=== PATIENT | female | born 1945 | race Caucasian/White ===

== ENCOUNTER 2016-11-25 11:50 | Emergency (ER) | payer MEDICARE, MEDICAID ==
--- NOTE | 2016-11-25 11:59 | ED Physician Documentation ---
PD HPI URI - Stated complaint Stated Complaint: SOA, COUGH, SIDE PX - Chief complaint Chief Complaint: Resp - History obtained from History obtained from: Patient - History of Present Illness Timing - onset: How many days ago (4-5) Timing duration: Days (4-5) Timing details: Gradual onset, Still present (had cough and dyspnea for few days and now worse with greenish sputum, more dyspnea, and feeling general malaise.) Associated symptoms: Chills, Nasal congestion, Productive cough, Dyspnea, Bilateral edema (chronic). No: Fever, Sore throat, Hemoptysis, Chest pain, NVD , Unilateral edema Contributing factors: Travel (couple of months ago, moved from [facility] to [facility] to live with her daughter; she had lived [place] elevation about 7000 [place] and was having regular dyspnea and had home oxygen. She is doing better since moving here, but now with cough/wheezing.), COPD / asthma. No: Sick contact, Immunocompromised Improves by: Rest Worsened by: Activity Similar symptoms before: Diagnosis (COPD exacs and bronchitis/pneumonia episodes in the past.) Recently seen: Not recently seen Review of Systems Constitutional: reports: Chills, Myalgias, Fatigue. denies: Fever Nose: reports: Congestion. denies: Rhinorrhea / runny nose Throat: denies: Sore throat Cardiac: reports: Pedal edema (ongoing). denies: Chest pain / pressure, Palpitations, Calf pain Respiratory: reports: Dyspnea, Cough, Wheezing GI: denies: Nausea, Vomiting, Diarrhea, Bloody / black stool Skin: denies: Rash, Lesions Musculoskeletal: reports: Back pain (ongoing, and had been Rx Meloxicam. Denies being on chronic pain meds nor pain clinic. Has had back injections in the past. Prior history of compression fractures.). denies: Neck pain Neurologic: reports: Generalized weakness. denies: Focal weakness, Numbness, Near syncope, Altered mental status, Headache Endocrine: denies: Weight loss Immunocompromised: denies: Immunocompromised PD PAST MEDICAL HISTORY - Past Medical History Cardiovascular: Congestive heart failure, Hypertension Respiratory: COPD Neuro: None Endocrine/Autoimmune: None - Present Medications Home Medications: Ambulatory Orders Medication Instructions Recorded Confirmed Albuterol Sulfate [Proair Hfa 1 - 2 puffs QID PRN 11/25/16 11/25/16 Inhaler] Azithromycin [Zithromax] 250 mg PO DAILY #4 tablet 11/25/16 Dexamethasone [Decadron] 4 mg PO DAILY #5 tablet 11/25/16 Hydrocodone/Acetaminophen [Vicodin 1 - 2 tab QID PRN 11/25/16 11/25/16 5-300 mg Tablet] Meloxicam 1 tab DAILY 11/25/16 11/25/16 Naproxen [Naprosyn] 500 mg PO BID #20 tablet 11/25/16 Omeprazole 1 tab DAILY 11/25/16 11/25/16 - Allergies Allergies/Adverse Reactions: Allergies Allergy/AdvReac Type Severity Reaction Status Date / Time No Known Drug Allergies Allergy Verified 11/25/16 11:58 - Living Situation Living Situation: reports: With family Living Arrangement: reports: At home (recently moved to [facility] in past 2-3 weeks. ) - Social History Does the pt smoke?: Yes Does the pt drink ETOH?: No Does the pt have substance abuse?: No - Family History Family history: reports: Non contributory PD ED PE NORMAL - Vitals Vital signs reviewed: Yes - General General: Alert and oriented X 3, Well developed/nourished - HEENT HEENT: Atraumatic, Ears normal, Moist mucous membranes, Pharynx benign - Neck Neck: Supple, no meningeal sign, No adenopathy - Cardiac Cardiac: RRR (mild tachycardic), No murmur - Respiratory Respiratory: No: Clear bilaterally (diffuse wheezes moderate, without accessory muscle use. Able to talk in sentences. ) - Abdomen Abdomen: Soft, Non tender - Female Female : Deferred - Rectal Rectal: Deferred - Back Back: No CVA TTP - Derm Derm: Normal color, Warm and dry - Extremities Extremities: No tenderness to palpate, Normal ROM s pain, No calf tenderness / cord, Other (1+ edema in both legs, which she says is usual. ) - Neuro Neuro: Alert and oriented X 3, No motor deficit, Normal speech Results - Vitals Vitals: Vital Signs - 24 hr 11/25/16 11/25/16 11/25/16 11:57 12:45 13:01 Temperature 37.2 C Heart Rate 109 H 112 H 100 Respiratory 20 17 20 Rate Blood Pressure 159/86 H 139/81 H O2 Saturation 95 94 11/25/16 11/25/16 11/25/16 13:42 14:36 14:46 Temperature 37.1 C Heart Rate 99 97 95 Respiratory 18 20 23 Rate Blood Pressure 109/62 96/55 L 93/55 L O2 Saturation 92 91 L 96 Oxygen O2 Source Room air - Labs Labs: Laboratory Tests 11/25/16 11/25/16 11/25/16 12:45 12:45 12:45 WBC 14.1 H RBC 5.55 H Hgb 16.2 H Hct 48.2 H MCV 86.9 MCH 29.1 MCHC 33.5 RDW 13.5 Plt Count 281 MPV 9.1 Neut # 10.8 H Lymph # 2.1 [place] # 1.0 Eos # 0.1 Baso # 0.1 Absolute Nucleated RBC 0.00 Nucleated RBCs 0.0 Sodium 136 Potassium 4.7 Chloride 100 L Carbon Dioxide 28 Anion Gap 8.0 BUN 20 Creatinine 0.7 Estimated GFR (MDRD) 82 L Glucose 106 H Calcium 10.2 Magnesium 1.8 Total Bilirubin 1.3 H AST 21 ALT 18 Alkaline Phosphatase 112 B-Natriuretic Peptide 184 H Total Protein 7.8 Albumin 4.2 Globulin 3.6 Albumin/Globulin Ratio 1.2 Lipase 22 - Rads (name of study) chest Radiology: Prelim report reviewed, EMP read contemporaneously (no infiltrates; hyperinflated c/w COPD. ) lumbar Radiology: Prelim report reviewed (chronic changes with L1 compression fx (old) . ) PD MEDICAL DECISION MAKING - ED course Complexity details: reviewed results, re-evaluated patient (feeling better with neb and some oral meds. ), considered differential (recently moved from [facility] at [facility], and is having COPD/bronchitis symptoms here. Has ongoing back pain for which she prefers not to take narcotics. She does not look ill and vitals are good. Given COPD history, will treat bronchitis symptoms with abx as well as steroids/inhalers. ), d/w patient Departure - Departure Disposition: 01 Home, Self Care Clinical Impression: Acute exacerbation of COPD with asthma, Bronchitis Low back pain Qualifiers: Chronicity: acute Back pain laterality: bilateral Sciatica presence: without sciatica Qualified Code(s): M54.5 - Low back pain Condition: Stable Record reviewed to determine appropriate education?: Yes Instructions: ED Bronchitis Asthmatic, ED Low Back Pain Injury, ED COPD Flare Prescriptions: Dexamethasone [Decadron] 4 mg PO DAILY #5 tablet Naproxen [Naprosyn] 500 mg PO BID #20 tablet Azithromycin [Zithromax] 250 mg PO DAILY #4 tablet Comments: Use your Albuterol inhaler 2 puffs 4 times daily and extra times as needed. Decadron steroid daily as directed. Once done with that, then resume daily use of your Advair. Zithromax daily as directed antibiotic for the bronchitis. Naproxen twice daily for back/hips pain and add Tylenol 650 mg 4 times daily as needed for pains. Follow up with new PMD as planned (in December); return to ED if not improved over the next few days. Discharge Date/Time: 11/25/16 14:53
[2016-11-25] MEDS ORDERED: IPRATROPIUM/ALBUTEROL 3 ML NEB INH STA (12:23)
[2016-11-25] MEDS ORDERED: DEXAMETHASONE 10 MG/ML VIAL IVP STA (12:26)
[2016-11-25] MEDS ORDERED: AZITHROMYCIN 250 MG TABLET PO STA (12:26)
[2016-11-25] MEDS ORDERED: KETOROLAC 60 MG/2 ML VIAL IVP STA (12:26)
[2016-11-25] MEDS ORDERED: IPRATROPIUM/ALBUTEROL 3 ML NEB INH ONE (12:35)
[2016-11-25] MEDS ORDERED: KETOROLAC 30 MG/ML VIAL ONE (12:57)
[2016-11-25] MEDS ORDERED: AZITHROMYCIN 250 MG TABLET PO ONE (12:57)
[2016-11-25] MEDS ORDERED: DEXAMETHASONE 10 MG/ML VIAL ONE (12:57)
[2016-11-25 13:05] LABS: BASOPHILS # (AUTO) 0.1 10^3/uL (0.0-0.1); BASOPHILS % (AUTO) 0.6 %; EOSINOPHILS # (AUTO) 0.1 10^3/uL (0.0-0.7); HCT - HEMATOCRIT 48.2 % (37.0-47.0); HGB - HEMOGLOBIN 16.2 g/dL (12.0-16.0); LYMPHOCYTES # (AUTO) 2.1 10^3/uL (1.5-3.5); LYMPHOCYTES % (AUTO) 14.7 %; MEAN CORPUSCULAR HEMOGLOBIN 29.1 pg (27.0-31.0); MEAN CORPUSCULAR HGB CONC 33.5 g/dL (32.0-36.0); MEAN CORPUSCULAR VOLUME 86.9 fL (81.0-99.0); MEAN PLATELET VOLUME 9.1 fL (7.9-10.8); MONOCYTES % (AUTO) 7.4 %; NEUTROPHILS # (AUTO) 10.8 10^3/uL (1.5-6.6); NEUTROPHILS % (AUTO) 76.3 %; RED BLOOD COUNT 5.55 10^6/uL (4.20-5.40); RED CELL DISTRIBUTION WIDTH 13.5 % (12.0-15.0); UNCORRECTED WHITE BLOOD COUNT 14.1 x10^3/uL; WHITE BLOOD COUNT 14.1 x10^3/uL (4.8-10.8)
--- NOTE | 2016-11-25 13:11 | XRAY Preliminary Report ---
Exam: XR Chest 2 View PA/LAT IMPRESSION: 1. Relatively symmetric, coarse bibasilar interstitial opacities. Findings are concerning for chronic lung disease and basilar fibrosis. Suggest comparison with any outside prior studies. [facility] SITE ID: [id number]
--- NOTE | 2016-11-25 13:14 | XRAY Report ---
EXAM: CHEST RADIOGRAPHY EXAM DATE: 11/25/2016 12:52 PM. CLINICAL HISTORY: Cough and dyspnea. COMPARISON: None. TECHNIQUE: 2 views. FINDINGS: Lungs/Pleura: Bibasilar opacities are probably from atelectasis and potential scarring. Upper lobe bullous changes are possible. No pneumothorax. Mediastinum: Atherosclerotic aortic calcifications. Other: Scoliosis. Thoracolumbar kyphosis with potential prior compression deformities. IMPRESSION: 1. Relatively symmetric, coarse bibasilar interstitial opacities. Findings are concerning for chronic lung disease and basilar fibrosis. Suggest comparison with any outside prior studies. [facility] Referring Provider Line: [phone] SITE ID: [id number]
--- NOTE | 2016-11-25 13:18 | XRAY Preliminary Report ---
Exam: XR Lumbar Spine 2 View IMPRESSION: 1. Diffuse osteopenia. 2. Mild L1 compression deformity could be chronic. Anterior osteophytes at T12-L1 and L1-L2 level elvin ear relatively smooth. 3. At least moderate multilevel degenerative changes. If there is clinical indication to further assess, consider CT. [facility] SITE ID: [id number]
[2016-11-25 13:20] LABS: ALBUMIN/GLOBULIN RATIO 1.2 (1.0-2.2); BILIRUBIN,TOTAL 1.3 mg/dL (0.2-1.0); CALCIUM 10.2 mg/dL (8.5-10.3); CREATININE 0.7 mg/dL (0.4-1.0); MAGNESIUM 1.8 mg/dL (1.7-2.8); POTASSIUM 4.7 mmol/L (3.5-5.0); TOTAL PROTEIN 7.8 g/dL (6.7-8.2)
--- NOTE | 2016-11-25 13:20 | XRAY Report ---
EXAM: LUMBOSACRAL SPINE RADIOGRAPHY EXAM DATE: 11/25/2016 12:55 PM. CLINICAL HISTORY: Low back pain radiating to hips. . COMPARISONS: None. TECHNIQUE: 3 views. FINDINGS: Alignment: Thoracolumbar kyphosis. 4 mm grade 1 retrolisthesis of L2 on L1 vertebral body. 2 mm grade 1 retrolisthesis of L3 on L4 vertebral body also suspected. 24 degree convex left lumbar scoliosis. Bones: Diffuse osteopenia. Mild anterior wedging of L1 vertebral body. Disks: At least moderate loss of disk space height throughout the lumbar spine. Facets: Lower lumbar facet hypertrophy, particularly at L5-S1 level. Sacroiliac Joints: Unremarkable. Soft Tissues: Atherosclerotic abdominal aortic calcifications. Probable tortuous abdominal aorta. IMPRESSION: 1. Diffuse osteopenia. 2. Mild L1 compression deformity could be chronic. Anterior osteophytes at T12-L1 and L1-L2 level elvin ear relatively smooth. 3. At least moderate multilevel degenerative changes. If there is clinical indication to further assess, consider CT. [facility] Referring Provider Line: [phone] SITE ID: [id number]
[2016-11-25 14:47] VITALS: BP 93/55
== END 2016-11-25 14:53 | disposition home or self-care (01) ==
LOC: ED 11:50
DX: J44.1 Chronic obstructive pulmonary disease with (acute) exacerbation (principal); M54.5 Low back pain; I10 Essential (primary) hypertension; Z72.0 Tobacco use
CPT/HCPCS: 36415; 71020; 72100; 80053; 83690; 83735; 83880; 85025; 93005; 94640; 96374; 96375; 99284; A9270; J7620

== ENCOUNTER 2016-12-15 13:17 | Emergency (ER) | payer MEDICAID, MEDICARE ==
[2016-12-15] MEDS ORDERED: DOXYCYCLINE 100 MG TABLET PO STA (13:48)
[2016-12-15] MEDS ORDERED: guaiFENesin/CODEINE 5 ML UDC PO STA (13:48)
[2016-12-15] MEDS ORDERED: IPRATROPIUM/ALBUTEROL 3 ML NEB INH STA (13:48)
[2016-12-15] MEDS ORDERED: DEXAMETHASONE 10 MG/ML VIAL PO STA (13:48)
[2016-12-15] MEDS ORDERED: NAPROXEN 250 MG TABLET PO STA (13:49)
[2016-12-15] MEDS ORDERED: guaiFENesin/CODEINE 5 ML UDC ONE (13:54)
[2016-12-15] MEDS ORDERED: CHERRY SYRUP 10 ML UDC PO ONE (13:54)
[2016-12-15] MEDS ORDERED: DOXYCYCLINE 100 MG TABLET PO ONE (13:54)
[2016-12-15] MEDS ORDERED: DEXAMETHASONE 10 MG/ML VIAL ONE (13:54)
[2016-12-15] MEDS ORDERED: NAPROXEN 250 MG TABLET PO ONE (13:54)
[2016-12-15] MEDS ORDERED: IPRATROPIUM/ALBUTEROL 3 ML NEB INH ONE (14:08)
[2016-12-15] MEDS ORDERED: HYDROmorphone 1 MG/ML SYRINGE ONE (14:37)
== END 2016-12-15 14:47 | disposition home or self-care (01) ==
DX: J44.1 Chronic obstructive pulmonary disease with (acute) exacerbation (principal); M54.5 Low back pain; F17.200 Nicotine dependence, unspecified, uncomplicated; I10 Essential (primary) hypertension
CPT/HCPCS: 71020; 94640; 99282; 99283; A9270; J1170; J7620

== ENCOUNTER 2017-01-07 10:46 | Outpatient (CLI) | payer MEDICARE, MEDICAID ==
--- NOTE | 2017-01-13 13:09 | Ultrasound Report ---
BILATERAL LOWER EXTREMITY ARTERIAL DUPLEX: 01/07/2017 CLINICAL INDICATION: Peripheral vascular disease. TECHNIQUE: Real-time sonographic vascular imaging was performed by the meteorological equipment repairer through the lower extremities utilizing both color-flow and Doppler spectral analysis. Multiple videotape sales representative static images were saved for review. RIGHT SIDE SITE PSV WAVEFORM STEN GEOTHERMAL POWERPLANT SUPERVISOR 149 biphasic PSFA 107 biphasic MSFA 117 biphasic DSFA 95 biphasic PFA 107 biphasic POP 78 biphasic MARIA 23 biphasic GEOTECHNICAL INTERN 64 biphasic PER 56 biphasic DPA 32 biphasic LEFT SIDE SITE PSV WAVEFORM STEN GEOTHERMAL POWERPLANT SUPERVISOR 167 biphasic PSFA 206 biphasic MSFA 131 biphasic DSFA 128 biphasic PFA 92 biphasic POP 62 biphasic MARIA 23 biphasic GEOTECHNICAL INTERN 37 monophasic PER 25 monophasic DPA 21 biphasic TECHNIQUE: Real-time scanning was performed. FINDINGS: Right leg: Waveforms are diffusely biphasic. There is no evidence of a focal velocity increase to suggest a hemodynamically significant stenosis. Left leg: Waveforms are predominantly biphasic. There is no evidence of a focal velocity increase to suggest a hemodynamically significant stenosis. IMPRESSION: NO EVIDENCE OF A HEMODYNAMICALLY SIGNIFICANT STENOSIS IN EITHER LEG. MTDD
== END 2017-01-07 10:47 | disposition home or self-care (01) ==
LOC: DI 10:46
PROVIDERS: ATTEND Family Medicine
DX: I73.9 Peripheral vascular disease, unspecified (principal)
CPT/HCPCS: 93925

== ENCOUNTER 2017-07-12 08:29 | Outpatient (CLI) | payer MEDICARE, MEDICAID ==
[2017-07-12 12:55] LABS: BASOPHILS # (AUTO) 0.1 10^3/uL (0.0-0.1); BASOPHILS % (AUTO) 0.7 %; EOSINOPHILS # (AUTO) 0.3 10^3/uL (0.0-0.7); EOSINOPHILS % (AUTO) 3.8 %; HGB - HEMOGLOBIN 15.1 g/dL (12.0-16.0); LYMPHOCYTES # (AUTO) 2.6 10^3/uL (1.5-3.5); LYMPHOCYTES % (AUTO) 34.8 %; MEAN CORPUSCULAR HEMOGLOBIN 30.1 pg (27.0-31.0); MEAN CORPUSCULAR HGB CONC 35.5 g/dL (32.0-36.0); MEAN CORPUSCULAR VOLUME 84.8 fL (81.0-99.0); MEAN PLATELET VOLUME 8.8 fL (7.9-10.8); MONOCYTES # (AUTO) 0.5 10^3/uL (0.0-1.0); NEUTROPHILS # (AUTO) 4.1 10^3/uL (1.5-6.6); NEUTROPHILS % (AUTO) 53.7 %; PLT - PLATELET COUNT 290 10^3/uL (130-450); RED BLOOD COUNT 5.03 10^6/uL (4.20-5.40); RED CELL DISTRIBUTION WIDTH 13.9 % (12.0-15.0); WHITE BLOOD COUNT 7.6 x10^3/uL (4.8-10.8)
[2017-07-12 13:07] LABS: ALBUMIN 4.3 g/dL (3.2-5.5); ALBUMIN/GLOBULIN RATIO 1.5 (1.0-2.2); BILIRUBIN,TOTAL 0.6 mg/dL (0.2-1.0); CALCIUM 9.4 mg/dL (8.5-10.3); CREATININE 0.7 mg/dL (0.4-1.0); TOTAL PROTEIN 7.2 g/dL (6.7-8.2)
== END 2017-07-12 08:30 | disposition home or self-care (01) ==
LOC: LAB.WCP 08:29
PROVIDERS: ATTEND Family Medicine
DX: Z00.00 Encounter for general adult medical examination without abnormal findings (principal); J44.9 Chronic obstructive pulmonary disease, unspecified; R03.0 Elevated blood-pressure reading, without diagnosis of hypertension; K21.9 Gastro-esophageal reflux disease without esophagitis; I73.9 Peripheral vascular disease, unspecified; M54.9 Dorsalgia, unspecified
CPT/HCPCS: 36415; 80053; 80061; 83721; 85025

== ENCOUNTER 2017-09-24 08:00 | Outpatient (CLI) | payer MEDICARE, MEDICAID ==
[2017-09-24 18:51] LABS: BILIRUBIN,URINE NEGATIVE (NEGATIVE); GLUCOSE, URINE (UA) NEGATIVE (NEGATIVE); KETONES,URINE (UA) NEGATIVE (NEGATIVE); LEUKOCYTE ESTERASE, URINE NEGATIVE (NEGATIVE); NITRITE,URINE NEGATIVE (NEGATIVE); OCCULT BLOOD,URINE NEGATIVE (NEGATIVE); PH,URINE 5.5 PH (5.0-7.5); PROTEIN,URINE NEGATIVE (NEGATIVE); UROBILINOGEN,URINE 0.2 (NORMAL) E.U./dL (NORMAL)
[2017-09-24 19:06] LABS: BACTERIA,URINE None Seen /HPF (None Seen); CLARITY,URINE CLEAR (CLEAR); RBC,URINE None Seen /HPF (0-5); SQUAMOUS EPITHELIAL CELL,UR RARE Squamous (<= Few)
== END 2017-09-24 08:01 | disposition home or self-care (01) ==
LOC: LAB.WCP 08:00
PROVIDERS: ATTEND Family Medicine
DX: R39.15 Urgency of urination (principal)
CPT/HCPCS: 81001; 87086

== ENCOUNTER 2017-12-26 19:01 | Inpatient (IN) | payer MEDICAID, MEDICARE ==
[2017-12-26] MEDS ORDERED: SODIUM CHLORIDE 0.9% 1,000 ML IV ONE (19:30)
--- NOTE | 2017-12-26 19:33 | ED Physician Documentation ---
PD HPI DYSPNEA - Stated complaint Stated Complaint: CP/VOMITING - Chief complaint Chief Complaint: Cardiac - History obtained from History obtained from: Patient - History of Present Illness Timing - onset: Other (This is a 72-year-old woman with history of COPD still smokes occasionally. She went to [place] in [place] and while there she got sick with increased shortness of breath and cough productive of white sputum. She was seen in the ER there and diagnosed with CHF and COPD exacerbations and started on both Lasix and prednisone. Despite continuing Lasix and prednisone she feels no better and now has had diarrhea for the last day with lower abdominal pain. She had a brief episode of anterior nonradiating chest wall pain while at rest last night. It only lasted about 2 minutes. Her shortness of breath did not increase during that episode.) Review of Systems Constitutional: reports: Fatigue. denies: Fever, Chills Respiratory: reports: Dyspnea, Cough GI: reports: Abdominal Pain, Diarrhea. denies: Nausea, Vomiting, Constipation, Bloody / black stool : denies: Dysuria, Frequency PD PAST MEDICAL HISTORY - Past Medical History Past Medical History: Yes Cardiovascular: Congestive heart failure, Hypertension Respiratory: COPD Endocrine/Autoimmune: None - Past Surgical History Past Surgical History: No - Present Medications Home Medications: Ambulatory Orders Medication Instructions Recorded Confirmed Albuterol Sulfate [Proair Hfa 1 - 2 puffs QID PRN 11/25/16 12/15/16 Inhaler] Omeprazole 1 tab DAILY 11/25/16 12/15/16 Dexamethasone [Decadron] 4 mg PO DAILY #5 tablet 12/15/16 Doxycycline Hyclate 100 mg PO BID #20 tablet 12/15/16 Naproxen [Naprosyn] 500 mg PO BID PRN #50 tablet 12/15/16 guaiFENesin/CODEINE [Robitussin AC] 10 ml PO Q6H PRN #240 ml 12/15/16 - Allergies Allergies/Adverse Reactions: Allergies Allergy/AdvReac Type Severity Reaction Status Date / Time No Known Drug Allergies Allergy Verified 11/25/16 11:58 - Social History Does the pt smoke?: Yes Smoking Status: Current every day smoker Does the pt drink ETOH?: No Does the pt have substance abuse?: No - Immunizations Immunizations are current?: Yes - POLST Patient has POLST: No PD ED PE NORMAL - Vitals Vital signs reviewed: Yes - General General: Alert and oriented X 3, No acute distress - HEENT HEENT: PERRL, EOMI - Neck Neck: Supple, no meningeal sign, No bony TTP - Cardiac Cardiac: RRR, No murmur - Respiratory Respiratory: Other (Rhonchorous and wheezy throughout, nonlabored) - Abdomen Abdomen: Normal bowel sounds, Soft, Other (Focally tender in the right lower quadrant without surgical signs.) - Back Back: No CVA TTP, No spinal TTP - Derm Derm: Normal color, Warm and dry - Extremities Extremities: No edema, No calf tenderness / cord - Neuro Neuro: Alert and oriented X 3, Normal speech Results - Vitals Vitals: Vital Signs - 24 hr 12/26/17 12/26/17 12/26/17 19:11 20:22 20:42 Temperature 36.4 C L Heart Rate 98 90 101 H Respiratory 18 13 18 Rate Blood Pressure 111/63 130/62 O2 Saturation 98 92 Oxygen O2 Source Room air - EKG (time done) 1908 Rate: Rate (enter#) (98) Rhythm: NSR (with PAC) Moran: Normal Intervals: Other (IVCD QRSd 149msec) QRS: Normal Ischemia: Normal ST segments Computer interpretation: Agree with computer - Labs Labs: Laboratory Tests 12/26/17 12/26/17 12/26/17 19:42 19:42 19:42 WBC 15.9 H RBC 5.72 H Hgb 16.7 H Hct 50.7 H MCV 88.7 MCH 29.2 MCHC 33.0 RDW 14.9 Plt Count 256 MPV 8.9 Neut # (Auto) 13.4 H Lymph # (Auto) 1.4 L [place] # (Auto) 0.9 Eos # (Auto) 0.1 Baso # (Auto) 0.0 Absolute Nucleated RBC 0.02 Nucleated RBC % 0.1 PT 12.3 INR 1.1 Sodium 133 L Potassium 4.2 Chloride 95 L Carbon Dioxide 26 Anion Gap 12.0 BUN 52 H Creatinine 1.6 H Estimated GFR (MDRD) 32 L Glucose 172 H Calcium 9.4 Total Bilirubin 1.5 H AST 20 ALT 21 Alkaline Phosphatase 89 Troponin I B-Natriuretic Peptide Total Protein 7.3 Albumin 3.6 Globulin 3.7 Albumin/Globulin Ratio 1.0 Lipase 28 12/26/17 12/26/17 19:42 19:42 WBC RBC Hgb Hct MCV MCH MCHC RDW Plt Count MPV Neut # (Auto) Lymph # (Auto) [place] # (Auto) Eos # (Auto) Baso # (Auto) Absolute Nucleated RBC Nucleated RBC % PT INR Sodium Potassium Chloride Carbon Dioxide Anion Gap BUN Creatinine Estimated GFR (MDRD) Glucose Calcium Total Bilirubin AST ALT Alkaline Phosphatase Troponin I < 0.04 B-Natriuretic Peptide 275 H Total Protein Albumin Globulin Albumin/Globulin Ratio Lipase - Rads (name of study) CT A/P Radiology: EMP read contemporaneously (1. CT findings consistent with perforated sigmoid colon diverticulitis. There are small locules of free air within the mid mesentery. There is no evidence of drainable pericolonic abscess. 2. There is peripheral calcification of the gallbladder. This could represent a large stone or gallbladder wall calcification. gallbladder wall calcification can be associated with gallbladder carcinoma. Follow-up recommended as indicated. 3. There is a small hiatal hernia. 4. There is peribronchial, patchy groundglass opacity within the lung bases with some associated bronchiectasis. There is mild peripheral sparing. This is nonspecific but could represent NSIP or atelectasis. No clearly acute infiltrate is seen.) PD MEDICAL DECISION MAKING - ED course ED course: 72-year-old woman with history of COPD presents with numerous complaints, she has ongoing dyspnea which based on examination seems much more likely to be COPD than fluid overload. She also has right lower quadrant tenderness in the setting of diarrhea. This is not typical for appendicitis but the exam is concerning. CT did show evidence of perforated diverticulitis. Case discussed Dr. Messi Padron, the on-call surgeon who will see her in the emergency department recommends Zosyn in the interim and a hospitalist evaluation for admission. And I spoke with Dr. De Guzman at [phone]. - Sepsis Event Vital Signs: Vital Signs - 24 hr 12/26/17 12/26/17 12/26/17 19:11 20:22 20:42 Temperature 36.4 C L Heart Rate 98 90 101 H Respiratory 18 13 18 Rate Blood Pressure 111/63 130/62 O2 Saturation 98 92 Oxygen O2 Source Room air Departure - Departure Disposition: 66 [facility] DC/Xfer Clinical Impression: Perforated diverticulum of large intestine, Acute exacerbation of COPD with asthma Condition: Stable
[2017-12-26] MEDS ORDERED: IPRATROPIUM/ALBUTEROL 3 ML NEB INH STA (19:34)
[2017-12-26 20:04] LABS: BASOPHILS % (AUTO) 0.1 %; EOSINOPHILS # (AUTO) 0.1 10^3/uL (0.0-0.7); EOSINOPHILS % (AUTO) 0.7 %; HGB - HEMOGLOBIN 16.7 g/dL (12.0-16.0); LYMPHOCYTES # (AUTO) 1.4 10^3/uL (1.5-3.5); LYMPHOCYTES % (AUTO) 8.7 %; MEAN CORPUSCULAR HEMOGLOBIN 29.2 pg (27.0-31.0); MEAN CORPUSCULAR VOLUME 88.7 fL (81.0-99.0); MEAN PLATELET VOLUME 8.9 fL (7.9-10.8); MONOCYTES # (AUTO) 0.9 10^3/uL (0.0-1.0); MONOCYTES % (AUTO) 5.7 %; NEUTROPHILS # (AUTO) 13.4 10^3/uL (1.5-6.6); NEUTROPHILS % (AUTO) 84.8 %; PLT - PLATELET COUNT 256 10^3/uL (130-450); RED BLOOD COUNT 5.72 10^6/uL (4.20-5.40); RED CELL DISTRIBUTION WIDTH 14.9 % (12.0-15.0); WHITE BLOOD COUNT 15.9 x10^3/uL (4.8-10.8)
[2017-12-26] MEDS ORDERED: IOPAMIDOL-300 100 ML VIAL ONE (20:08)
[2017-12-26 20:10] LABS: INR 1.1 (0.8-1.2); PT - PROTHROMBIN TIME 12.3 secs (9.9-12.6)
[2017-12-26 20:19] LABS: ALBUMIN 3.6 g/dL (3.2-5.5); BILIRUBIN,TOTAL 1.5 mg/dL (0.2-1.0); CALCIUM 9.4 mg/dL (8.5-10.3); CREATININE 1.6 mg/dL (0.4-1.0); TOTAL PROTEIN 7.3 g/dL (6.7-8.2)
--- NOTE | 2017-12-26 21:22 | CT Report ---
Procedure Date: 12/26/2017 Accession Number: [id number] / [id number] Procedure: CT - Abdomen/Pelvis W/O CPT Code: FULL RESULT: EXAM: CT ABDOMEN AND PELVIS EXAM DATE: 12/26/2017 08:47 PM. CLINICAL HISTORY: RLQ pain. COMPARISONS: None. TECHNIQUE: Routine axial helical CT imaging was performed through the abdomen and pelvis without IV contrast. Reconstructions: Coronal and sagittal. In accordance with CT protocol optimization, one or more of the following dose reduction techniques were utilized for this exam: automated exposure control, adjustment of mA and/or KV based on patient size, or use of iterative reconstructive technique. FINDINGS: Lung Bases: There is coarse peribronchial opacity within the lung bases. No evidence of acute infiltrate. Abdominal Organs: Noncontrast images of the abdominal organs are grossly unremarkable. Gallbladder/bile ducts: There is calcification within the periphery of the gallbladder. Peritoneal Cavity: There is a small hiatal hernia. No acute small bowel abnormalities are seen. There is perforated sigmoid colon diverticulitis. There are small locules of air within the mid mesentery. No evidence of drainable pericolonic abscess. The appendix is normal. Pelvic Organs: No bladder stones or wall thickening. Noncontrast images of the visualized pelvic organs are unremarkable. Vasculature: There are atheromatous calcifications of the aorta and branch vessels. Other: There is lumbar spine degenerative disease. IMPRESSION: 1. CT findings consistent with perforated sigmoid colon diverticulitis. There are small locules of free air within the mid mesentery. There is no evidence of drainable pericolonic abscess. 2. There is peripheral calcification of the gallbladder. This could represent a large stone or gallbladder wall calcification. Gallbladder wall calcification can be associated with gallbladder carcinoma. Follow-up recommended as indicated. 3. There is a small hiatal hernia. 4. There is peribronchial, patchy groundglass opacity within the lung bases with some associated bronchiectasis. There is mild peripheral sparing. This is nonspecific but could represent NSIP or atelectasis. No clearly acute infiltrate is seen.
[2017-12-26] MEDS ORDERED: PIPERACILLIN/TAZOBACTAM 3.375 GM in SODIUM CHLORIDE 0.9% MINIBAG 100 ML IV STA (21:32)
[2017-12-26] MEDS ORDERED: MORPHINE 10 MG/ML VIAL IVP STA (21:44)
[2017-12-26] MEDS ORDERED: ONDANSETRON 4 MG/2 ML VIAL IVP STA (21:44)
--- NOTE | 2017-12-26 21:52 | XRAY Report ---
Procedure Date: 12/26/2017 Accession Number: [id number] / [id number] Procedure: XR - Chest 2 View X-Ray CPT Code: 56408 FULL RESULT: EXAM: CHEST RADIOGRAPHY EXAM DATE: 12/26/2017 09:06 PM. CLINICAL HISTORY: Dyspnea. COMPARISON: None. TECHNIQUE: 2 views. FINDINGS: Lungs/Pleura: No focal opacities evident. No pleural effusion. No pneumothorax. Normal volumes. Mediastinum: The heart size is normal. Arterial calcifications indicate atherosclerosis. Other: Mild bilateral acromioclavicular osteoarthropathy present. IMPRESSION: No acute cardiopulmonary findings. [facility]
[2017-12-26] MEDS ORDERED: PROCHLORPERAZINE 10 MG/2 ML VIAL IVP PRN (22:18)
[2017-12-26] MEDS ORDERED: ONDANSETRON 4 MG/2 ML VIAL IVP PRN (22:18)
--- NOTE | 2017-12-26 22:18 | HISTORY & PHYSICAL EXAMINATION ---
Chief Complaint - Chief Complaint Chief Complaint: Perforated diverticulum History of Present Illness - Admitted From Admitted From:: ED - History Obtained From History obtained from: Patient/Daughter Exam Limitations: Cognitive limitiations/Poor historian - History of Present Illness HPI Comment/Other: Ms. Pritchard is a 72 y/o F with PMH of COPD, CHF, PVD, HTN, GERD, and osteoarthritis who presented to the ED today with diffuse, crampy abdominal pain and associated intractable diarrhea for the past 48 hours. She was also sob and wheezing. The pain is generalized with a waxing and waning colicky pattern. No blood in the stool. She was found to have elevated WBC (15.9) and her CT abd/pelvis demonstrated findings consistent with acute sigmoid diverticulitis with localized perforation. Stool cultures done on admission are positive for C. Diff. She has been on doxycycline as delineated below. On exam she is afebrile, hemodynamically stable, and while her abd is tender to palpitation, she does not have any peritoneal signs. Ms. Pritchard also displayed symptoms of dehydration including dry mucous membranes and hyponatremia and received 1L NS in the ED. We will admit her for IV antibiotics, rehydration, and serial abdominal exams. General surgery has been consulted and agrees with plan for conservative management at this time. He would like us to admit the patient and he will consult. Ms. Pritchard additionally has symptoms of SOB, productive cough, and wheezing on presentation today but her breathing remains unlabored, regular rate and is maintaining an spO2 94% on RA. She was recently seen in the ED while visiting her hometown in [place] approx. 2 weeks ago for an acute COPD exacerbation (did not require inpatient hospitalization) where she was prescribed a course of oral steroids, doxycycline, and given a bronchodilator neb with improvement of symptoms. At that time she was also diagnosed with CHF (unclear what warranted this), given a dose of lasix, and prescribed a "medication that ends in -pril". CXR done in ED shows no cardiopulmonary findings. Will give PRN duoneb treatments for SOB/wheezing and monitor while inpatient. History - Past Medical History Cardiovascular: reports: Congestive heart failure (recent diagnosis during COPD exacerbation while in [place] because she had "fluid in her lungs", unclear on details regarding what warranted the diagnosis), Hypertension, Peripheral Vascular Disease (R>L ) Respiratory: reports: COPD (No hospitalizations, but 2 ER visits in the past. 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 G5 /P5 children, 3 (1 as a toddler s/t turpentine intoxication, 2 in [facility]) , 2 adult daughters. Living arrangement: At home Living Situation: With family Social History Notes: Pt recently moved to [place] from [place], [place] 10/2016 after the loss of her to live with daughter. Has had a handicap placard since 01/2017 - Substance History Use: Uses substance without health or social issues: Tobacco (1 PPD x 30 years, attempted quitting with chantix in 09/2016 without success) Dependence: Experiences withdrawal or developed tolerances: Tobacco Tobacco Details: Cigarettes - POLST Patient has POLST: No POLST Status: Full Code (Upon discussion of code status with pt, she wants everything done and maintain FULL CODE status and would like to complete a POLST with her daughter before leaving the hospital to further document wishes) Meds/Allgy - Home Medications Home Medications: Ambulatory Orders Medication Instructions Recorded Confirmed Albuterol Sulfate [Proair Hfa 1 - 2 puffs QID PRN 11/25/16 12/27/17 Inhaler] Omeprazole 20 mg PO DAILY 11/25/16 12/27/17 Dexamethasone [Decadron] 4 mg PO DAILY #5 tablet 12/15/16 12/27/17 Doxycycline Hyclate 100 mg PO BID #20 tablet 12/15/16 12/27/17 guaiFENesin/CODEINE [Robitussin AC] 10 ml PO Q6H PRN #240 ml 12/15/16 12/27/17 Meloxicam 7.5 mg PO 12/27/17 - Allergies Allergies/Adverse Reactions: Allergies Allergy/AdvReac Type Severity Reaction Status Date / Time No Known Drug Allergies Allergy Verified 11/25/16 11:58 Review of Systems - Constitutional Constitutional: reports: Fatigue, Weakness, Poor appetite. denies: Fever, Chills, Night sweats, Weight loss - Eyes Eyes: denies: Blurred vision - Ears, Nose & Throat Ears, Nose & Throat: reports: Hearing loss (IGIUGIG bilaterally). denies: Ear pain , Vertigo - Cardiovascular Cariovascular: denies: Palpitations, Chest pain, Edema, Syncope - Respiratory Respiratory: reports: Cough, Sputum production, Wheezing, SOB at rest, SOB with exertion - Gastrointestinal Gastrointestinal: reports: Abdominal pain, Diarrhea, Reflux/heartburn, Poor appetite. denies: Rectal bleeding, Black stools, Bloody stools, Nausea, Vomiting - Genitourinary Genitourinary: reports: Incontinence (uses incontinence pads) - Musculoskeletal Musculoskeletal: reports: Back pain, Stiffness (total body), Joint pain (hands and neck s/t OA) - Neurological Neurological: reports: General weakness, Memory problems (daughter noticed prior to moving pt here last year. Today when she drove up to house, mom did not recognize her or her .) - Hematologic/Lymphatic Hematologic/Lymphatic: denies: Blood clots, Bleeding tendencies - All Other Systems All Other Systems: reports: Reviewed and negative Exam - Vital Signs Reviewed Vital Signs: Yes Vital Signs: Vital Signs x48h Temp Pulse Resp BP Pulse Ox 12/26/17 21:53 36.7 C 102 H 16 117/78 92 12/26/17 20:42 101 H 18 130/62 92 12/26/17 20:22 90 13 12/26/17 19:11 36.4 C L 98 18 111/63 98 - Physical Exam General Appearance: positive: No acute distress, Other (Alert and cooperative, lying comfortably in bed, very thin, dyed black hair, and looks much older than stated age.) Eyes Bilateral: positive: PERRL, EOMI, No scleral icterus ENT: positive: Dry mucous membranes Neck: positive: Nml inspection, No JVD (Bilateral expiratory wheezes to upper and lower lobes), Trachea midline Respiratory: positive: No respiratory distress (unlabored, no retractions noted) , Wheezes, Rhonchi (Bilateral lower lobes, clear with cough), Other (able to vivaciously converse and no pursed lip breathing nor increased use of accessory muscles.) Cardiovascular: positive: Regular rate & rhythm, No murmur. negative: Gallop/S4 , Friction rub Peripheral Pulses: positive: 1+ (LEs cool and dry) Abdomen: positive: No organomegaly, Tenderness (TTP in RLQ), Abnml bowel sounds (Hyperactive bowel sounds). negative: Guarding, Rebound, Mass Skin: positive: Color nml, Warm, Dry Extremities: positive: Non-tender, Nml appearance, No pedal edema Neurologic/Psychiatric: positive: Oriented x3, Motor nml. negative: Weakness, Facial droop, Slurred/abnml speech Conclusion/Plan - Problem List (1) Perforated diverticulum of large intestine Conclusion/Plan: Pt presented today with worsening abdominal pain and diarrhea x2 days, found to have elevated WBC of 15.[address] abd/pelvis findings consistent with acute sigmoid diverticulitis with localized perforation. On presentation to the ER, pt is afebrile and normotensive, her abdomen is tender to palpation in RLQ with some guarding, but without peritoneal signs. We will admit her for monitoring and supportive care. * Consult general surgery * NPO * D51/2NS @ 100ml/hr for mild hyponatremia and suspected free water deficit * Pip/tazo IV and metronidazole IV with plan for 14 day course * Repeat CT abd/pelvis in 3 days unless acute change in abdominal exam * CMP, CBC in am After admission to [facility], meeting SIRS criteria for tachycardia, elevated WBC, and known suspected source of infection (perforated diverticulum + newly found to be positive for C. diff) * SIRS 3 hour bundle ordered * 1L NS IVF bolus * Follow up lab results (2) Acute exacerbation of COPD with asthma Conclusion/Plan: Chronic COPD with 2 recent ER visits for exacerbations (none requiring inpatient hospitalization), most recent exacerbation approx. 2 weeks ago where she was prescribed a course of oral steroids, bronchodilator therapy, and doxycycline with improvement of symptoms. Reports she has been on home oxygen at night for years and continues to smoke (1 PPD x30 years). Today she continues to have productive cough, wheezing, and SOB. On exam her breathing is unlabored with regular rate and spo2 94% on RA. No acute cardiopulmonary findings on CXR. * PRN duonebs for wheezing/SOB * Hold oral steroids and doxycycline in the setting of perforated diverticulum treatment * O2 therapy as needed (3) Clostridium difficile diarrhea Conclusion/Plan: Frequent (>10 episodes) of watery, liquid stool (without evidence of blood) and associated cramping abdominal pain x2 days. Poor appetite and fatigue with evidence of dehydration on exam. Stool cultures sent in ED positive for C. diff. * IVF ordered for rehydration * PO vancomycin for active C.diff infection * Monitor I&Os * Trend WBC (4) GERD (gastroesophageal reflux disease) Conclusion/Plan: Longstanding GERD well controlled on PPI therapy. * IV pantoprazole while NPO Qualifiers: Esophagitis presence: esophagitis presence not specified Qualified Code(s) : K21.9 - Gastro-esophageal reflux disease without esophagitis (5) Osteoarthritis Conclusion/Plan: History of OA in hands and neck as well as chronic back pain, taking naproxen at home. * Hold naproxen * PRN IV dilaudid for pain while NPO Qualifiers: Osteoarthritis location: multiple joints Osteoarthritis type: unspecified Qualified Code(s): M15.9 - Polyosteoarthritis, unspecified (6) Hypertension Conclusion/Plan: History of HTN and reported noncompliance with medication prescribed in the past. Not currently taking antihypertensives. Normotensive on admission. Qualifiers: Hypertension type: unspecified Qualified Code(s): I10 - Essential (primary ) hypertension (7) Heart failure, congestive, etiology unknown Conclusion/Plan: Reported recent diagnosis of CHF during ED visit while in [place] 2 weeks ago, unclear of details and what diagnostics were done but states that there was "fluid in lungs" on CXR, for which she received lasix and was prescribed a medication that ended in "-pril". On admission, no evidence of pulmonary edema on CXR, bibasilar crackles, or LE edema on exam. * Follow up OSH records, refer to PCP * Order ECHO to assess LV. - Lab Results Fish Bones: 12/27/17 05:35 12/27/17 05:35 - Diagnostic Imaging Results Diagnostic Imaging Results: positive: Final report reviewed Diagnostic Imaging Results Comments: CT abd/pelvis findings are consistent with acute sigmoid diverticulitis with localized perforation with pockets of air in the adjacent mesentery, but no other signs of free air, free fluid, or drainable collections. - EKG Results EKG Findings: Sinus tachycardia Core Measures - Anticipated LOS I expect patient to be DC'd or transferred within 96 hours.: Yes - DVT/VTE - Prophylaxis VTE/DVT Device ordered at admit?: Yes VTE/DVT Prophylaxis med ordered at admit?: Yes
--- NOTE | 2017-12-26 22:26 | CONSULTATION NOTE ---
Referring Provider Name of Referring Provider:: Dr. De Guzman Consult Date: 12/26/17 Chief Complaint - Chief Complaint Chief Complaint: abd pain History of Present Illness - Admitted From Admitted From:: ER - History Obtained From Records Reviewed: yes History obtained from: pt Exam Limitations: possible memory dysfunction - History of Present Illness HPI Comment/Other: 72 yo female from [place] with 48 hr hx of generalized periumbilical abdominal pain associated with nonbloody diarrhea, anorexia, progressively worsening, prompting ER evaluation today. She reports 10+ watery stools since onset of sx. No prior similar sx. No hx melena, hematochezia, recent wt loss, or FH GI tumors. No prior lower gi evaluations. Hx GERD sx well controlled with PPI therapy. No dysphagia. She just arrived from [place] this morning to visit her daughter who lives locally. She reports recent hospitalization in [place] for SOB thought due to COPD exacerbation and/or CHF and treated with a course of steroids and bronchodilator therapy with resolution. She uses home O2 at night, and continues to smoke; she denies use of alcohol. History - Past Medical History Cardiovascular: reports: Congestive heart failure, Hypertension. 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 - Family & Social History Family History Comment/Other: Neg for GI tumors Living Situation: With family (at present, recently arrived from [place]) - Substance History Use: Uses substance without health or social issues: Tobacco Abuse: Recurrent use of substance despite neg consequences: Other (COPD) Dependence: Experiences withdrawal or developed tolerances: Tobacco Tobacco Details: Cigarettes - POLST Patient has POLST: No Meds/Allgy - Home Medications Home Medications: Ambulatory Orders Medication Instructions Recorded Confirmed Albuterol Sulfate [Proair Hfa 1 - 2 puffs QID PRN 11/25/16 12/15/16 Inhaler] Omeprazole 1 tab DAILY 11/25/16 12/15/16 Dexamethasone [Decadron] 4 mg PO DAILY #5 tablet 12/15/16 Doxycycline Hyclate 100 mg PO BID #20 tablet 12/15/16 Naproxen [Naprosyn] 500 mg PO BID PRN #50 tablet 12/15/16 guaiFENesin/CODEINE [Robitussin AC] 10 ml PO Q6H PRN #240 ml 12/15/16 - Allergies Allergies/Adverse Reactions: Allergies Allergy/AdvReac Type Severity Reaction Status Date / Time No Known Drug Allergies Allergy Verified 11/25/16 11:58 Review of Systems - Constitutional Constitutional: reports: Weakness, Poor appetite. denies: Fever, Chills, Weight gain, Weight loss - Cardiovascular Cariovascular: denies: Chest pain - Respiratory Respiratory: reports: Cough, Sputum production, Wheezing, SOB at rest, SOB with exertion - Gastrointestinal Gastrointestinal: reports: Abdominal pain, Diarrhea, Change in bowel habits, Reflux/heartburn, Poor appetite. denies: Rectal bleeding, Black stools, Bloody stools, Nausea, Vomiting - Neurological Neurological: reports: General weakness, Memory problems (did not recognize her daughter earlier today.), Other (foot pain) - Hematologic/Lymphatic Hematologic/Lymphatic: denies: Blood clots, Bleeding tendencies - All Other Systems All Other Systems: reports: Reviewed and negative Exam - Vital Signs Reviewed Vital Signs: Yes Vital Signs: Vital Signs x48h Temp Pulse Resp BP Pulse Ox 12/26/17 21:53 36.7 C 102 H 16 117/78 92 12/26/17 20:42 101 H 18 130/62 92 12/26/17 20:22 90 13 12/26/17 19:11 36.4 C L 98 18 111/63 98 - Physical Exam General Appearance: positive: Alert, Mild distress Eyes Bilateral: positive: Normal inspection, Conjunctivae nml, No scleral icterus ENT: positive: ENT inspection nml, Pharynx nml, Dry mucous membranes. negative : Oral lesions Neck: positive: Nml inspection, Thyroid nml, No JVD. negative: Lymphadenopathy (R), Lymphadenopathy (L) Respiratory: positive: Chest non-tender, No respiratory distress, Wheezes ( bilat expiratory), Rhonchi (bilat, partially clear with cough) Cardiovascular: positive: Regular rate & rhythm, No murmur, No gallop Peripheral Pulses: positive: 0 (at ankles) Abdomen: positive: Nml bowel sounds, Tenderness (RLQ, suprapubic with localized guarding and rebound; no generalized peritoneal signs.), Guarding, Rebound, Other (obese). negative: Hepatomegaly, Splenomegaly Back: positive: Nml inspection. negative: CVA tenderness (R), CVA tenderness (L ) Skin: positive: Color nml, No rash, Warm, Dry. negative: Cyanosis Extremities: positive: Non-tender, No pedal edema. negative: Calf tenderness Neurologic/Psychiatric: positive: Oriented x3 Conclusion/Plan - Diagnosis Diagnosis: 1. Acute diverticulitis with localized peritonitis; no evidence of complicated disease at present. 2. O2 dept COPD. 3. Possible hx of CHF. - Plan Plan: Agree with admission, bowel rest, IV antibiotics, serial exams, medical evaluation. Surgical intervention if she worsens or fails to improve. - Lab Results Fish Bones: 12/26/17 19:42 12/26/17 19:42 - Diagnostic Imaging Results Diagnostic Imaging Results: positive: Final report reviewed, Critical result, Read independently Diagnostic Imaging Results Comments: Abd/pelvic CT: findings c/w acute sigmoid diverticulitis with localized perforation with pockets of air in the adjacent mesentery, but no other signs of free air, free fluid, or drainable collections. CXR: NAD
[2017-12-27] MEDS: DEXTROSE 5%-0.45% NACL 1,000 ML IV SCH ×3 (01:15→21:06)
[2017-12-27] MEDS: metroNIDAZOLE 500 MG/100 ML 500 MG/100 ML BAG IV SCH ×3 (01:16→17:51)
[2017-12-27] MEDS: PIPERACILLIN/TAZOBACTAM 3.375 GM in SODIUM CHLORIDE 0.9% MINIBAG 100 ML IV SCH ×5 (01:31→22:15)
[2017-12-27] MEDS: SODIUM CHLORIDE FLUSH 0.9% 10 ML SYRINGE IVP SCH ×3 (01:31→17:52)
[2017-12-27] MEDS ORDERED: SODIUM CHLORIDE 0.9% 1,000 ML IV ONE (01:56)
[2017-12-27 02:29] LABS: INR 1.2 (0.8-1.2); PT - PROTHROMBIN TIME 13.2 secs (9.9-12.6)
[2017-12-27] MEDS: IPRATROPIUM/ALBUTEROL 3 ML NEB INH PRN ×4 (03:31→20:05)
[2017-12-27 05:56] LABS: EOSINOPHILS # (AUTO) 0.1 10^3/uL (0.0-0.7); EOSINOPHILS % (AUTO) 1.1 %; HGB - HEMOGLOBIN 14.3 g/dL (12.0-16.0); LYMPHOCYTES # (AUTO) 0.9 10^3/uL (1.5-3.5); LYMPHOCYTES % (AUTO) 9.6 %; MEAN CORPUSCULAR HEMOGLOBIN 29.7 pg (27.0-31.0); MEAN CORPUSCULAR HGB CONC 33.2 g/dL (32.0-36.0); MEAN CORPUSCULAR VOLUME 89.5 fL (81.0-99.0); MEAN PLATELET VOLUME 8.6 fL (7.9-10.8); MONOCYTES # (AUTO) 0.5 10^3/uL (0.0-1.0); MONOCYTES % (AUTO) 5.5 %; NEUTROPHILS # (AUTO) 8.2 10^3/uL (1.5-6.6); NEUTROPHILS % (AUTO) 83.8 %; PLT - PLATELET COUNT 184 10^3/uL (130-450); RED BLOOD COUNT 4.82 10^6/uL (4.20-5.40); RED CELL DISTRIBUTION WIDTH 14.9 % (12.0-15.0); WHITE BLOOD COUNT 9.8 x10^3/uL (4.8-10.8)
[2017-12-27 06:00] LABS: ALBUMIN 2.5 g/dL (3.2-5.5); ALBUMIN/GLOBULIN RATIO 0.9 (1.0-2.2); TOTAL PROTEIN 5.2 g/dL (6.7-8.2)
[2017-12-27 06:25] LABS: DIFFERENTIAL COMMENT MANUAL=AUTO DIFF; PLATELET ESTIMATE, MANUAL NORMAL (130-450,000) (NORMAL); PLATELET MORPHOLOGY NORMAL APPEARANCE (NORMAL); RBC MORPHOLOGY (MULTIPLE) NORMAL APPEARANCE (NORMAL)
[2017-12-27] MEDS: BENZONATATE 100 MG CAPSULE PO PRN ×2 (08:33→17:52)
[2017-12-27] MEDS: ENOXAPARIN 40 MG/0.4 ML SYRINGE SUBQ SCH (08:33)
[2017-12-27] MEDS: HYDROmorphone 0.5 MG/0.5 ML SYRINGE IVP PRN (08:36)
[2017-12-27] MEDS ORDERED: guaiFENesin 600 MG TABLET PO SCH (09:00)
[2017-12-27] MEDS ORDERED: POLYETHYLENE GLYCOL 3350 17 GM PACKET PO SCH (09:00)
[2017-12-27] MEDS: VANCOMYCIN 125 MG CAPSULE PO SCH ×4 (09:28→22:15)
--- NOTE | 2017-12-27 11:13 | PROVIDER PROGRESS NOTE ---
Subjective - Prog Note Date Prog Note Date: 12/27/17 - Subjective Pt reports feeling: Improved Subjective: pt report her abdominal pain is in the control, no N/V. No diarrhea since she was treated in the hospital. breath is fine, no labored breathing, no fever, chill. pt report she had chronic cough from her brochiectasis. No chest pain, or headache. pt report she feel hungry. Explain to pt, she can not have diet yet. pt state she understand. Current Medications - Current Medications Current Medications: Active Medications Albuterol/Ipratropium (Duoneb) 3 ml INH Q4HR PRN PRN Reason: Wheezing Last Admin: 12/27/17 08:16 Dose: 3 ml Benzonatate (Tessalon) 100 mg PO TID PRN PRN Reason: Cough Last Admin: 12/27/17 08:33 Dose: 100 mg Enoxaparin Sodium (Lovenox) 40 mg SUBQ DAILY NEELAM Last Admin: 12/27/17 08:33 Dose: 40 mg Hydromorphone HCl (Dilaudid Inj Syringe) 0.5 mg IVP Q2H PRN PRN Reason: Pain 8 to 10 Last Admin: 12/27/17 08:36 Dose: 0.5 mg Dextrose/Sodium Chloride (D5.45ns) 1,000 mls @ 100 mls/hr IV .Q10H ON LICENSE OF [facility] Last Infusion: 12/27/17 06:30 Dose: 100 mls/hr Metronidazole (Flagyl 500 Mg/100 Ml) 500 mg in 100 mls @ 100 mls/hr IV Q8H ON LICENSE OF [facility] Last Infusion: 12/27/17 09:40 Dose: Infused Piperacillin Sod/Tazobactam (Sod 3.375 gm/ Sodium Chloride) 100 mls @ 200 mls/ hr IV Q6H NEELAM Last Admin: 12/27/17 10:49 Dose: 100 mls/hr Ondansetron HCl (Zofran Inj) 4 mg IVP Q6HR PRN PRN Reason: Nausea / Vomiting Prochlorperazine Edisylate (Compazine Inj) 10 mg IVP Q6HR PRN PRN Reason: Nausea / Vomiting Sodium Chloride (Normal Saline Flush 0.9%) 10 ml IVP PRN PRN PRN Reason: NEEDED PER PROVIDER ORDERS Sodium Chloride (Normal Saline Flush 0.9%) 10 ml IVP 0100,0900,1700 ON LICENSE OF [facility] Last Admin: 12/27/17 09:28 Dose: Not Given Vancomycin HCl (Vancocin) 125 mg PO QID ON LICENSE OF [facility] Last Admin: 12/27/17 09:28 Dose: 125 mg Albuterol Sulfate [Proair Hfa Inhaler] 2 puffs INH Q4H PRN 11/25/16 Omeprazole 20 mg PO QDAC 11/25/16 Cilostazol [Pletal] 100 mg PO BID 12/27/17 Gabapentin [Neurontin] 200 mg PO TID 12/27/17 Ibuprofen [Motrin] 800 mg PO DAILY 12/27/17 Ipratropium/Albuterol Sulfate [Iprat-Albut 0.5-3(2.5) mg/3 ml] 3 ml INH QID PRN 12/27/17 Meloxicam [Mobic] 15 mg PO DAILY PRN 12/27/17 Objective - Vital Signs/Intake & Output Reviewed Vital Signs: Yes Vital Signs: Vital Signs x48h Temp Pulse Pulse Resp BP Pulse Ox 12/27/17 09:29 36.7 C 89 16 12/27/17 08:16 99 18 12/27/17 08:03 36.8 C 101 H 18 117/68 94 12/27/17 05:05 121/57 L 12/27/17 05:00 37 C 95 18 109/36 L 98 12/27/17 03:33 91 12 12/27/17 03:30 36.4 C L 92 14 109/50 L 93 Intake & Output: Intake & Output 12/24/17 12/25/17 12/26/17 12/27/17 23:59 23:59 23:59 23:59 Intake Total 100 2857 Output Total 551 Balance 100 2306 - Objective General Appearance: positive: No acute distress, Alert. negative: Lethargic Eyes Bilateral: positive: Normal inspection, PERRL, No lid inflammation, Conjunctivae nml ENT: positive: ENT inspection nml, Pharynx nml, No signs of dehydration. negative: Purulent nasal drainage, Pharyngeal erythema, Oral lesions Neck: positive: Nml inspection, Thyroid nml, No JVD, Trachea midline. negative : Thyromegaly, Lymphadenopathy (R), Lymphadenopathy (L), Stiff neck, Swelling/ bruising, Tracheal deviation Respiratory: positive: Chest non-tender, No respiratory distress. negative: Wheezes, Rales Cardiovascular: positive: Regular rate & rhythm, No murmur, No gallop. negative : Irregularly irregular, Extrasystoles, Tachycardia, Bradycardia, JVD present, Systolic murmur, Diastolic murmur Peripheral Pulses: 2+ Radial (R), 2+ Radial (L), 2+ Dorsalis pedis (R), 2+ Dorsalis pedis (L) Abdomen: positive: Non-tender, No organomegaly, Nml bowel sounds, No distention. negative: Tenderness, Guarding, Rebound Back: positive: Nml inspection. negative: CVA tenderness (R), CVA tenderness (L ) Skin: positive: Color nml, No rash, Warm, Dry. negative: Cyanosis, Diaphoresis , Pallor Extremities: positive: Non-tender, Full ROM, Nml appearance. negative: Calf tenderness, Joint swelling, Atif's sign/cords Neurologic/Psychiatric: positive: Oriented x3, Motor nml, Sensation nml, Mood/ affect nml. negative: Weakness, Sensory loss, Facial droop, Slurred/abnml speech, Depressed mood/affect - Lab Results Fish Bones: 12/27/17 05:35 12/27/17 05:35 Other Labs: Lab Results x24hrs 12/27/17 12/27/17 12/27/17 Range/Units 05:35 05:35 02:16 WBC 9.8 (4.8-10.8) x10^3/uL RBC 4.82 (4.20-5.40) 10^6/uL Hgb 14.3 (12.0-16.0) g/dL Hct 43.1 (37.0-47.0) % MCV 89.5 (81.0-99.0) fL MCH 29.7 (27.0-31.0) pg MCHC 33.2 (32.0-36.0) g/dL RDW 14.9 (12.0-15.0) % Plt Count 184 (130-450) 10^3/uL MPV 8.6 (7.9-10.8) fL Neut # (Auto) 8.2 H (1.5-6.6) 10^3/uL Lymph # (Auto) 0.9 L (1.5-3.5) 10^3/uL [place] # (Auto) 0.5 (0.0-1.0) 10^3/uL Eos # (Auto) 0.1 (0.0-0.7) 10^3/uL Baso # (Auto) 0.0 (0.0-0.1) 10^3/uL Absolute Nucleated RBC 0.01 x10^3/uL Band Neuts % (Manual) Not Reportable Abnorm Lymph % (Manual) Not Reportable Nucleated RBC % 0.1 /100WBC Neutrophils # (Manual) Not Reportable Lymphocytes # (Manual) Not Reportable Monocytes # (Manual) Not Reportable Eosinophils # (Manual) Not Reportable Basophils # (Manual) Not Reportable Differential Comment MANUAL=AUTO DIFF Platelet Estimate NORMAL (130-450,000) (NORMAL) Platelet Morphology NORMAL APPEARANCE (NORMAL) RBC Morph Micro Appear NORMAL APPEARANCE (NORMAL) PT (9.9-12.6) secs INR (0.8-1.2) APTT (24.9-33.3) secs Sodium 134 L (135-145) mmol/L Potassium 3.5 (3.5-5.0) mmol/L Chloride 104 (101-111) mmol/L Carbon Dioxide 24 (21-32) mmol/L Anion Gap 6.0 (6-13) BUN 38 H (6-20) mg/dL Creatinine 1.0 (0.4-1.0) mg/dL Estimated GFR (MDRD) 54 L (>89) Glucose 145 H (70-100) mg/dL Lactic Acid 0.8 (0.5-2.2) mmol/L Calcium 8.0 L (8.5-10.3) mg/dL Total Bilirubin 1.0 (0.2-1.0) mg/dL AST 16 (10-42) IU/L ALT 17 (10-60) IU/L Alkaline Phosphatase 60 (42-121) IU/L Total Protein 5.2 L (6.7-8.2) g/dL Albumin 2.5 L (3.2-5.5) g/dL Globulin 2.7 (2.1-4.2) g/dL Albumin/Globulin Ratio 0.9 L (1.0-2.2) 12/27/18 Range/Units 02:16 WBC (4.8-10.8) x10^3/uL RBC (4.20-5.40) 10^6/uL Hgb (12.0-16.0) g/dL Hct (37.0-47.0) % MCV (81.0-99.0) fL MCH (27.0-31.0) pg MCHC (32.0-36.0) g/dL RDW (12.0-15.0) % Plt Count (130-450) 10^3/uL MPV (7.9-10.8) fL Neut # (Auto) (1.5-6.6) 10^3/uL Lymph # (Auto) (1.5-3.5) 10^3/uL [place] # (Auto) (0.0-1.0) 10^3/uL Eos # (Auto) (0.0-0.7) 10^3/uL Baso # (Auto) (0.0-0.1) 10^3/uL Absolute Nucleated RBC x10^3/uL Band Neuts % (Manual) Abnorm Lymph % (Manual) Nucleated RBC % /100WBC Neutrophils # (Manual) Lymphocytes # (Manual) Monocytes # (Manual) Eosinophils # (Manual) Basophils # (Manual) Differential Comment Platelet Estimate (NORMAL) Platelet Morphology (NORMAL) RBC Morph Micro Appear (NORMAL) PT 13.2 H (9.9-12.6) secs INR 1.2 (0.8-1.2) APTT 24.4 L (24.9-33.3) secs Sodium (135-145) mmol/L Potassium (3.5-5.0) mmol/L Chloride (101-111) mmol/L Carbon Dioxide (21-32) mmol/L Anion Gap (6-13) BUN (6-20) mg/dL Creatinine (0.4-1.0) mg/dL Estimated GFR (MDRD) (>89) Glucose (70-100) mg/dL Lactic Acid (0.5-2.2) mmol/L Calcium (8.5-10.3) mg/dL Total Bilirubin (0.2-1.0) mg/dL AST (10-42) IU/L ALT (10-60) IU/L Alkaline Phosphatase (42-121) IU/L Total Protein (6.7-8.2) g/dL Albumin (3.2-5.5) g/dL Globulin (2.1-4.2) g/dL Albumin/Globulin Ratio (1.0-2.2) ABX Reporting Has patient been on IV antibiotics over the past 48 hours?: Yes Assessment/Plan - Problem List (1) Perforated diverticulum of large intestine Impression: Conclusion/Plan: 12/27 localized perforated diverticulum. follow up surgeon's consult pt state her abdominal pain is good control, no N/V/D. pt has good bowel movement on exam. continue NPO D5 1/2 NS Zosyn and Flagyl repeat CT of abd if worsening symptoms or monitor the improvement daily lab, vital monitor Pt presented today with worsening abdominal pain and diarrhea x2 days, found to have elevated WBC of 15.[address] abd/pelvis findings consistent with acute sigmoid diverticulitis with localized perforation. On presentation to the ER, pt is afebrile and normotensive, her abdomen is tender to palpation in RLQ with some guarding, but without peritoneal signs. We will admit her for monitoring and supportive care. * Consult general surgery * NPO * D51/2NS @ 100ml/hr for mild hyponatremia and suspected free water deficit * Pip/tazo IV and metronidazole IV with plan for 14 day course * Repeat CT abd/pelvis in 3 days unless acute change in abdominal exam * CMP, CBC in am After admission to [facility], meeting SIRS criteria for tachycardia, elevated WBC, and known suspected source of infection (perforated diverticulum + newly found to be positive for C. diff) * SIRS 3 hour bundle ordered * 1L NS IVF bolus * Follow up lab results (2) Acute exacerbation of COPD with asthma Conclusion/Plan: 12/27 pt does not present respiratory distress now Duoneb PRN continue O2 supplement, ht is home O2 dependent continue hole steroid and doxycycline Chronic COPD with 2 recent ER visits for exacerbations (none requiring inpatient hospitalization), most recent exacerbation approx. 2 weeks ago where she was prescribed a course of oral steroids, bronchodilator therapy, and doxycycline with improvement of symptoms. Reports she has been on home oxygen at night for years and continues to smoke (1 PPD x30 years). Today she continues to have productive cough, wheezing, and SOB. On exam her breathing is unlabored with regular rate and spo2 94% on RA. No acute cardiopulmonary findings on CXR. * PRN duonebs for wheezing/SOB * Hold oral steroids and doxycycline in the setting of perforated diverticulum treatment * O2 therapy as needed (3) Clostridium difficile diarrhea Conclusion/Plan: 12/27 pt report her abdominal pain is good controlled. No N/V/D, great improvement continue IVF continue Vancomycin PO continue isolation, C.dif protocol lab and vital monitor Frequent (>10 episodes) of watery, liquid stool (without evidence of blood) and associated cramping abdominal pain x2 days. Poor appetite and fatigue with evidence of dehydration on exam. Stool cultures sent in ED positive for C. diff. * IVF ordered for rehydration * PO vancomycin for active C.diff infection * Monitor I&Os * Trend WBC (4) GERD (gastroesophageal reflux disease) Conclusion/Plan: Longstanding GERD well controlled on PPI therapy. * IV pantoprazole while NPO (5) Osteoarthritis Conclusion/Plan: History of OA in hands and neck as well as chronic back pain, taking naproxen at home. * Hold naproxen * PRN IV dilaudid for pain while NPO (6) Hypertension Conclusion/Plan: BP is stable, vital monitor History of HTN and reported noncompliance with medication prescribed in the past. Not currently taking antihypertensives. Normotensive on admission. (7) Heart failure, congestive, etiology unknown Conclusion/Plan: No pulmonary crackles, no LE edema ECHO is pending, will follow up Reported recent diagnosis of CHF during ED visit while in [place] 2 weeks ago, unclear of details and what diagnostics were done but states that there was "fluid in lungs" on CXR, for which she received lasix and was prescribed a medication that ended in "-pril". On admission, no evidence of pulmonary edema on CXR, bibasilar crackles, or LE edema on exam. * Follow up OSH records, refer to PCP * Order ECHO to assess LV.
--- NOTE | 2017-12-27 13:42 | PROVIDER PROGRESS NOTE ---
Assessment/Plan - Problem List (1) Perforated diverticulum of large intestine Assessment/Plan: Clinically improving with present management. Rec: start clear liquid diet, OOB more, ow continue present management plans. (2) Clostridium difficile diarrhea Assessment/Plan: Clinically improving with present therapy; rec: continue same. (oral vancomycin) ; add probiotic. - Current Meds Current Meds: Current Medications Generic Name Dose Route Start Last Admin Trade Name Freq PRN Reason Stop Dose Admin Albuterol/Ipratropium 3 ml 12/26/17 22:24 12/27/17 13:25 Duoneb INH 3 ml Q4HR PRN Administration Wheezing Benzonatate 100 mg 12/27/17 08:18 12/27/17 08:33 Tessalon PO 100 mg TID PRN Administration Cough Enoxaparin Sodium 40 mg 12/27/17 09:00 12/27/17 08:33 Lovenox SUBQ 40 mg DAILY NEELAM Administration Hydromorphone HCl 0.5 mg 12/26/17 22:18 12/27/17 08:36 Dilaudid Inj Syringe IVP 0.5 mg Q2H PRN Administration Pain 8 to 10 Dextrose/Sodium Chloride 1,000 mls @ 100 mls/hr 12/26/17 23:00 12/27/17 06:30 D5.45ns IV 100 mls/hr .Q10H NEELAM Infusion Metronidazole 500 mg in 100 mls @ 100 mls/hr 12/27/17 00:00 12/27/17 09:40 Flagyl 500 Mg/100 Ml IV Infused Q8H NEELAM Infusion Piperacillin Sod/Tazobactam 100 mls @ 200 mls/hr 12/26/17 23:00 12/27/17 11: 41 Sod 3.375 gm/ Sodium Chloride IV Infused Q6H NEELAM Infusion Sodium Chloride 10 ml 12/27/17 01:00 12/27/17 09:28 Normal Saline Flush 0.9% IVP Not Given 0100,0900,1700 NEELAM Vancomycin HCl 125 mg 12/27/17 09:00 12/27/17 12:43 Vancocin PO 125 mg QID NEELAM Administration - Lab Result Lab results reviewed: Yes Fish Bone Diagrams: 12/27/17 05:35 12/27/17 05:35 Other Lab Results: stool + for C. diff toxin - Additional Planning Condition/Complexity: Improved My Orders: My Active Orders 12/26/17 22:42 IS [Incentive Spirometry - RT] [RC] .TID Plan Discussed with:: Patient Time Spent: 15-30 minutes Subjective - Subjective Patient Reports: Feeling Better, Resting Comfortably, No Complaints, Abdominal Pain (markedly improved compared to yesterday), Diarrhea (also improved compared to yesterday) Objective Vital Signs: Vital Signs - 24 hr 12/26/17 12/26/17 12/27/17 22:58 23:35 02:07 Temperature 36.8 C 36.8 C 36.7 C Heart Rate Heart Rate [ 98 95 92 Brachial] Respiratory 18 18 14 Rate Blood Pressure 99/50 L 94/52 L [Left Brachial artery] Blood Pressure 103/61 [Right Brachial artery] O2 Saturation 97 93 95 12/27/17 12/27/17 12/27/17 02:30 02:58 03:30 Temperature 36.6 C 36.4 C L 36.4 C L Heart Rate Heart Rate [ 89 99 92 Brachial] Respiratory 14 16 14 Rate Blood Pressure 95/54 L 97/73 109/50 L [Left Brachial artery] Blood Pressure [Right Brachial artery] O2 Saturation 93 94 93 12/27/17 12/27/17 12/27/17 03:33 05:00 05:05 Temperature 37 C Heart Rate 91 Heart Rate [ 95 Brachial] Respiratory 12 18 Rate Blood Pressure 109/36 L 121/57 L [Left Brachial artery] Blood Pressure [Right Brachial artery] O2 Saturation 98 12/27/17 12/27/17 12/27/17 08:03 08:16 09:29 Temperature 36.8 C 36.7 C Heart Rate 99 Heart Rate [ 101 H 89 Brachial] Respiratory 18 18 16 Rate Blood Pressure 117/68 [Left Brachial artery] Blood Pressure [Right Brachial artery] O2 Saturation 94 12/27/17 12/27/17 12:44 13:25 Temperature 37.3 C Heart Rate 106 H Heart Rate [ 88 Brachial] Respiratory 18 18 Rate Blood Pressure 141/76 H [Left Brachial artery] Blood Pressure [Right Brachial artery] O2 Saturation Oxygen O2 Source Nasal cannula I&O (Last 24 Hrs): Intake and Output Totals x24h 12/25/17 12/26/17 12/27/17 23:59 23:59 23:59 Intake Total 100 3197 Output Total 551 Balance 100 2646 General: Alert, Cooperative, No acute distress HEENT: Mucous membr. moist/pink Neck: Supple, No JVD Neuro: Alert Cardiovascular: Regular rate, Normal S1, Normal S2, No murmurs Respiratory: Chest non-tender, No respiratory distress, Wheezes (bilateral expiratory, mild) Abdomen: Normal bowel sounds, Soft, Other (minimal suprapubic tenderness to deep palpation; no peritoneal signs) Extremities: No edema, Other (no calf muscle tenderness) - Results Results: Laboratory Results WBC 9.8 x10^3/uL (4.8-10.8) 12/27/17 05:35 RBC 4.82 10^6/uL (4.20-5.40) 12/27/17 05:35 Hgb 14.3 g/dL (12.0-16.0) 12/27/17 05:35 Hct 43.1 % (37.0-47.0) 12/27/17 05:35 MCV 89.5 fL (81.0-99.0) 12/27/17 05:35 MCH 29.7 pg (27.0-31.0) 12/27/17 05:35 MCHC 33.2 g/dL (32.0-36.0) 12/27/17 05:35 RDW 14.9 % (12.0-15.0) 12/27/17 05:35 Plt Count 184 10^3/uL (130-450) 12/27/17 05:35 MPV 8.6 fL (7.9-10.8) 12/27/17 05:35 Neut # (Auto) 8.2 10^3/uL (1.5-6.6) H 12/27/17 05:35 Lymph # (Auto) 0.9 10^3/uL (1.5-3.5) L 12/27/17 05:35 [place] # (Auto) 0.5 10^3/uL (0.0-1.0) 12/27/17 05:35 Eos # (Auto) 0.1 10^3/uL (0.0-0.7) 12/27/17 05:35 Baso # (Auto) 0.0 10^3/uL (0.0-0.1) 12/27/17 05:35 Absolute Nucleated RBC 0.01 x10^3/uL 12/27/17 05:35 Band Neuts % (Manual) Not Reportable 12/27/17 05:35 Abnorm Lymph % (Manual) Not Reportable 12/27/17 05:35 Nucleated RBC % 0.1 /100WBC 12/27/17 05:35 Neutrophils # (Manual) Not Reportable 12/27/17 05:35 Lymphocytes # (Manual) Not Reportable 12/27/17 05:35 Monocytes # (Manual) Not Reportable 12/27/17 05:35 Eosinophils # (Manual) Not Reportable 12/27/17 05:35 Basophils # (Manual) Not Reportable 12/27/17 05:35 Differential Comment MANUAL=AUTO DIFF 12/27/17 05:35 Platelet Estimate NORMAL (130-450,000) (NORMAL) 12/27/17 05:35 Platelet Morphology NORMAL APPEARANCE (NORMAL) 12/27/17 05:35 RBC Morph Micro Appear NORMAL APPEARANCE (NORMAL) 12/27/17 05:35 PT 13.2 secs (9.9-12.6) H 12/27/17 02:16 INR 1.2 (0.8-1.2) 12/27/17 02:16 APTT 24.4 secs (24.9-33.3) L 12/27/17 02:16 Sodium 134 mmol/L (135-145) L 12/27/17 05:35 Potassium 3.5 mmol/L (3.5-5.0) 12/27/17 05:35 Chloride 104 mmol/L (101-111) 12/27/17 05:35 Carbon Dioxide 24 mmol/L (21-32) 12/27/17 05:35 Anion Gap 6.0 (6-13) 12/27/17 05:35 BUN 38 mg/dL (6-20) H 12/27/17 05:35 Creatinine 1.0 mg/dL (0.4-1.0) 12/27/17 05:35 Estimated GFR (MDRD) 54 (>89) L 12/27/17 05:35 Glucose 145 mg/dL (70-100) H 12/27/17 05:35 Lactic Acid 0.8 mmol/L (0.5-2.2) 12/27/17 02:16 Calcium 8.0 mg/dL (8.5-10.3) L 12/27/17 05:35 Total Bilirubin 1.0 mg/dL (0.2-1.0) 12/27/17 05:35 AST 16 IU/L (10-42) 12/27/17 05:35 ALT 17 IU/L (10-60) 12/27/17 05:35 Alkaline Phosphatase 60 IU/L (42-121) 12/27/17 05:35 Troponin I < 0.04 ng/mL (<0.49) 12/26/17 19:42 B-Natriuretic Peptide 275 pg/mL (5-100) H 12/26/17 19:42 Total Protein 5.2 g/dL (6.7-8.2) L 12/27/17 05:35 Albumin 2.5 g/dL (3.2-5.5) L 12/27/17 05:35 Globulin 2.7 g/dL (2.1-4.2) 12/27/17 05:35 Albumin/Globulin Ratio 0.9 (1.0-2.2) L 12/27/17 05:35 Lipase 28 U/L (22-51) 12/26/17 19:42 ABX Reporting Has patient been on IV antibiotics over the past 48 hours?: No
[2017-12-27] MEDS: SACCHAROMYCES BOULARDII 250 MG CAPSULE PO SCH (14:31)
[2017-12-28] MEDS: metroNIDAZOLE 500 MG/100 ML 500 MG/100 ML BAG IV SCH ×3 (00:07→16:23)
[2017-12-28] MEDS: LISINOPRIL 5 MG TABLET PO SCH ×2 (01:28→09:24)
[2017-12-28] MEDS: SODIUM CHLORIDE FLUSH 0.9% 10 ML SYRINGE IVP SCH ×3 (01:31→16:23)
[2017-12-28] MEDS: PIPERACILLIN/TAZOBACTAM 3.375 GM in SODIUM CHLORIDE 0.9% MINIBAG 100 ML IV SCH ×4 (05:42→21:07)
[2017-12-28 05:43] LABS: BASOPHILS % (AUTO) 0.2 %; EOSINOPHILS # (AUTO) 0.1 10^3/uL (0.0-0.7); EOSINOPHILS % (AUTO) 1.3 %; HGB - HEMOGLOBIN 13.4 g/dL (12.0-16.0); LYMPHOCYTES # (AUTO) 1.1 10^3/uL (1.5-3.5); LYMPHOCYTES % (AUTO) 16.2 %; MEAN CORPUSCULAR HGB CONC 33.5 g/dL (32.0-36.0); MEAN CORPUSCULAR VOLUME 86.7 fL (81.0-99.0); MEAN PLATELET VOLUME 8.4 fL (7.9-10.8); MONOCYTES # (AUTO) 0.4 10^3/uL (0.0-1.0); MONOCYTES % (AUTO) 6.4 %; NEUTROPHILS # (AUTO) 5.2 10^3/uL (1.5-6.6); NEUTROPHILS % (AUTO) 75.9 %; PLT - PLATELET COUNT 156 10^3/uL (130-450); RED BLOOD COUNT 4.61 10^6/uL (4.20-5.40); RED CELL DISTRIBUTION WIDTH 14.7 % (12.0-15.0); WHITE BLOOD COUNT 6.9 x10^3/uL (4.8-10.8)
[2017-12-28 05:51] LABS: CREATININE 0.7 mg/dL (0.4-1.0)
[2017-12-28] MEDS: SODIUM CHLORIDE FLUSH 0.9% 10 ML SYRINGE IVP PRN ×4 (06:07→17:49)
[2017-12-28] MEDS ORDERED: POTASSIUM CHLOR 10 MEQ/100 ML 10 MEQ/100 ML BAG IV SCH (07:00)
--- NOTE | 2017-12-28 07:30 | PROVIDER PROGRESS NOTE ---
Assessment/Plan - Problem List (1) Perforated diverticulum of large intestine Assessment/Plan: Continues to improve; rec: advance diet to low residue, OOB more (2) Clostridium difficile diarrhea Assessment/Plan: clinically improving; rec: continue present therapy. - Current Meds Current Meds: Current Medications Generic Name Dose Route Start Last Admin Trade Name Freq PRN Reason Stop Dose Admin Albuterol/Ipratropium 3 ml 12/26/17 22:24 12/27/17 20:05 Duoneb INH 3 ml Q4HR PRN Administration Wheezing Benzonatate 100 mg 12/27/17 08:18 12/27/17 17:52 Tessalon PO 100 mg TID PRN Administration Cough Enoxaparin Sodium 40 mg 12/27/17 09:00 12/27/17 08:33 Lovenox SUBQ 40 mg DAILY NEELAM Administration Hydromorphone HCl 0.5 mg 12/26/17 22:18 12/27/17 08:36 Dilaudid Inj Syringe IVP 0.5 mg Q2H PRN Administration Pain 8 to 10 Metronidazole 500 mg in 100 mls @ 100 mls/hr 12/27/17 00:00 12/28/17 01:19 Flagyl 500 Mg/100 Ml IV Infused Q8H NEELAM Infusion Piperacillin Sod/Tazobactam 100 mls @ 200 mls/hr 12/26/17 23:00 12/28/17 06: 06 Sod 3.375 gm/ Sodium Chloride IV Infused Q6H NEELAM Infusion Lisinopril 5 mg 12/28/17 01:00 12/28/17 01:28 Zestril PO 5 mg DAILY NEELAM Administration Saccharomyces Boulardii 500 mg 12/27/17 14:15 12/27/17 14:31 Florastor PO Not Given BIDWM NEELAM Sodium Chloride 10 ml 12/26/17 22:18 12/28/17 07:14 Normal Saline Flush 0.9% IVP 10 ml PRN PRN Administration NEEDED PER PROVIDER ORDERS Sodium Chloride 10 ml 12/27/17 01:00 12/28/17 01:31 Normal Saline Flush 0.9% IVP 10 ml 0100,0900,1700 NEELAM Administration Vancomycin HCl 125 mg 12/27/17 09:00 12/27/17 22:15 Vancocin PO 125 mg QID NEELAM Administration - Lab Result Lab results reviewed: Yes Fish Bone Diagrams: 12/28/17 05:30 12/28/17 05:30 - Additional Planning Condition/Complexity: Improved My Orders: My Active Orders 12/27/17 14:15 Saccharomyces Boulardii [Florastor] 500 mg PO BIDWM Plan Discussed with:: Patient Time Spent: 15-30 minutes Subjective - Subjective Patient Reports: Feeling Better, Resting Comfortably, No Complaints (hungry; requests solid food), Diarrhea (2 loose stools overnight) Objective Vital Signs: Vital Signs - 24 hr 12/27/17 12/27/17 12/27/17 08:03 08:16 09:29 Temperature 36.8 C 36.7 C Heart Rate 99 Heart Rate [ 101 H 89 Brachial] Respiratory 18 18 16 Rate Blood Pressure 117/68 [Left Brachial artery] O2 Saturation 94 12/27/17 12/27/17 12/27/17 12:44 13:25 15:31 Temperature 37.3 C 37.6 C H Heart Rate 106 H Heart Rate [ 88 114 H Brachial] Respiratory 18 18 20 Rate Blood Pressure 141/76 H 137/64 H [Left Brachial artery] O2 Saturation 97 12/27/17 12/27/17 12/27/17 19:32 19:44 20:05 Temperature 36.9 C Heart Rate 117 H Heart Rate [ 110 H Brachial] Respiratory 22 18 Rate Blood Pressure 98/57 L [Left Brachial artery] O2 Saturation 93 12/27/17 12/27/17 20:55 23:32 Temperature 37.7 C H 36.8 C Heart Rate Heart Rate [ 121 H 105 H Brachial] Respiratory 20 20 Rate Blood Pressure 116/50 L 135/70 H [Left Brachial artery] O2 Saturation 94 93 Oxygen O2 Source Nasal cannula I&O (Last 24 Hrs): Intake and Output Totals x24h 12/26/17 12/27/17 12/28/17 23:59 23:59 23:59 Intake Total 100 4958.667 593.333 Output Total 1051 675 Balance 100 3907.667 -81.667 General: Alert, Oriented x3, Cooperative Neuro: Alert Abdomen: Normal bowel sounds, Soft, No tenderness, No hepatospenomegaly, No masses Extremities: No edema, No tenderness/swelling - Results Results: Laboratory Results WBC 6.9 x10^3/uL (4.8-10.8) 12/28/17 05:30 RBC 4.61 10^6/uL (4.20-5.40) 12/28/17 05:30 Hgb 13.4 g/dL (12.0-16.0) 12/28/17 05:30 Hct 40.0 % (37.0-47.0) 12/28/17 05:30 MCV 86.7 fL (81.0-99.0) 12/28/17 05:30 MCH 29.0 pg (27.0-31.0) 12/28/17 05:30 MCHC 33.5 g/dL (32.0-36.0) 12/28/17 05:30 RDW 14.7 % (12.0-15.0) 12/28/17 05:30 Plt Count 156 10^3/uL (130-450) 12/28/17 05:30 MPV 8.4 fL (7.9-10.8) 12/28/17 05:30 Neut # (Auto) 5.2 10^3/uL (1.5-6.6) 12/28/17 05:30 Lymph # (Auto) 1.1 10^3/uL (1.5-3.5) L 12/28/17 05:30 [place] # (Auto) 0.4 10^3/uL (0.0-1.0) 12/28/17 05:30 Eos # (Auto) 0.1 10^3/uL (0.0-0.7) 12/28/17 05:30 Baso # (Auto) 0.0 10^3/uL (0.0-0.1) 12/28/17 05:30 Absolute Nucleated RBC 0.00 x10^3/uL 12/28/17 05:30 Band Neuts % (Manual) Not Reportable 12/27/17 05:35 Abnorm Lymph % (Manual) Not Reportable 12/27/17 05:35 Nucleated RBC % 0.1 /100WBC 12/28/17 05:30 Neutrophils # (Manual) Not Reportable 12/27/17 05:35 Lymphocytes # (Manual) Not Reportable 12/27/17 05:35 Monocytes # (Manual) Not Reportable 12/27/17 05:35 Eosinophils # (Manual) Not Reportable 12/27/17 05:35 Basophils # (Manual) Not Reportable 12/27/17 05:35 Differential Comment MANUAL=AUTO DIFF 12/27/17 05:35 Platelet Estimate NORMAL (130-450,000) (NORMAL) 12/27/17 05:35 Platelet Morphology NORMAL APPEARANCE (NORMAL) 12/27/17 05:35 RBC Morph Micro Appear NORMAL APPEARANCE (NORMAL) 12/27/17 05:35 PT 13.2 secs (9.9-12.6) H 12/27/17 02:16 INR 1.2 (0.8-1.2) 12/27/17 02:16 APTT 24.4 secs (24.9-33.3) L 12/27/17 02:16 Sodium 133 mmol/L (135-145) L 12/28/17 05:30 Potassium 3.2 mmol/L (3.5-5.0) L 12/28/17 05:30 Chloride 101 mmol/L (101-111) 12/28/17 05:30 Carbon Dioxide 26 mmol/L (21-32) 12/28/17 05:30 Anion Gap 6.0 (6-13) 12/28/17 05:30 BUN 13 mg/dL (6-20) 12/28/17 05:30 Creatinine 0.7 mg/dL (0.4-1.0) 12/28/17 05:30 Estimated GFR (MDRD) 82 (>89) L 12/28/17 05:30 Glucose 106 mg/dL (70-100) H 12/28/17 05:30 Lactic Acid 0.8 mmol/L (0.5-2.2) 12/27/17 02:16 Calcium 8.0 mg/dL (8.5-10.3) L 12/28/17 05:30 Total Bilirubin 1.0 mg/dL (0.2-1.0) 12/27/17 05:35 AST 16 IU/L (10-42) 12/27/17 05:35 ALT 17 IU/L (10-60) 12/27/17 05:35 Alkaline Phosphatase 60 IU/L (42-121) 12/27/17 05:35 Troponin I < 0.04 ng/mL (<0.49) 12/26/17 19:42 B-Natriuretic Peptide 275 pg/mL (5-100) H 12/26/17 19:42 Total Protein 5.2 g/dL (6.7-8.2) L 12/27/17 05:35 Albumin 2.5 g/dL (3.2-5.5) L 12/27/17 05:35 Globulin 2.7 g/dL (2.1-4.2) 12/27/17 05:35 Albumin/Globulin Ratio 0.9 (1.0-2.2) L 12/27/17 05:35 Lipase 28 U/L (22-51) 12/26/17 19:42 ABX Reporting Has patient been on IV antibiotics over the past 48 hours?: Yes
--- NOTE | 2017-12-28 07:53 | PROVIDER PROGRESS NOTE ---
Subjective - Prog Note Date Prog Note Date: 12/28/17 Prog Note Time: 07:53 - Subjective Pt reports feeling: No change Subjective: Shellie complains about frequent stools, but notes to be slightly improved overall. She denies chest pain, increased SOB, N/V or a new cough. She admits to ongoing heart burn, that happens after acidic foods and states that she had orange juice this AM. Current Medications - Current Medications Current Medications: Active Medications Albuterol/Ipratropium (Duoneb) 3 ml INH Q4HR PRN PRN Reason: Wheezing Last Admin: 12/28/17 15:00 Dose: 3 ml Albuterol/Ipratropium (Duoneb) 3 ml INH QID PRN PRN Reason: Shortness of Air/Wheezing Benzonatate (Tessalon) 100 mg PO TID PRN PRN Reason: Cough Last Admin: 12/27/17 17:52 Dose: 100 mg Calcium Carbonate/Glycine (Tums) 500 mg PO TID PRN PRN Reason: Heartburn Enoxaparin Sodium (Lovenox) 40 mg SUBQ DAILY [facility] Last Admin: 12/28/17 09:24 Dose: 40 mg Gabapentin (Neurontin) 200 mg PO TID [facility] Last Admin: 12/28/17 13:35 Dose: 200 mg Hydromorphone HCl (Dilaudid Inj Syringe) 0.5 mg IVP Q2H PRN PRN Reason: Pain 8 to 10 Last Admin: 12/27/17 08:36 Dose: 0.5 mg Metronidazole (Flagyl 500 Mg/100 Ml) 500 mg in 100 mls @ 100 mls/hr IV Q8H [facility] Last Infusion: 12/28/17 10:35 Dose: Infused Piperacillin Sod/Tazobactam (Sod 3.375 gm/ Sodium Chloride) 100 mls @ 200 mls/ hr IV Q6H [facility] Last Admin: 12/28/17 11:40 Dose: 200 mls/hr Lisinopril (Zestril) 5 mg PO DAILY [facility] Last Admin: 12/28/17 09:24 Dose: 5 mg Multi-Ingredient Mouthwash/Gargle () 30 ml PO BID PRN PRN Reason: Heartburn Ondansetron HCl (Zofran Inj) 4 mg IVP Q6HR PRN PRN Reason: Nausea / Vomiting Pantoprazole Sodium (Protonix) 40 mg IVP BID [facility] Last Admin: 12/28/17 11:43 Dose: 40 mg Potassium Chloride () 40 meq PO BID [facility] Stop: 12/28/17 21:01 Last Admin: 12/28/17 09:24 Dose: 40 meq Prochlorperazine Edisylate (Compazine Inj) 10 mg IVP Q6HR PRN PRN Reason: Nausea / Vomiting Saccharomyces Boulardii (Florastor) 500 mg PO BIDWM [facility] Last Admin: 12/28/17 09:24 Dose: 500 mg Sodium Chloride (Normal Saline Flush 0.9%) 10 ml IVP PRN PRN PRN Reason: NEEDED PER PROVIDER ORDERS Last Admin: 12/28/17 11:44 Dose: 10 ml Sodium Chloride (Normal Saline Flush 0.9%) 10 ml IVP 0100,0900,1700 [facility] Last Admin: 12/28/17 07:50 Dose: 10 ml Spironolactone (Aldactone) 12.5 mg PO BID [facility] Last Admin: 12/28/17 11:39 Dose: 12.5 mg Vancomycin HCl (Vancocin) 125 mg PO QID [facility] Last Admin: 12/28/17 13:35 Dose: 125 mg Albuterol Sulfate [Proair Hfa Inhaler] 2 puffs INH Q4H PRN 11/25/16 Omeprazole 20 mg PO QDAC 11/25/16 Cilostazol [Pletal] 100 mg PO BID 12/27/17 Gabapentin [Neurontin] 200 mg PO TID 12/27/17 Ibuprofen [Motrin] 800 mg PO DAILY 12/27/17 Ipratropium/Albuterol Sulfate [Iprat-Albut 0.5-3(2.5) mg/3 ml] 3 ml INH QID PRN 12/27/17 Meloxicam [Mobic] 15 mg PO DAILY PRN 12/27/17 Objective - Vital Signs/Intake & Output Reviewed Vital Signs: Yes Intake & Output: Intake & Output 12/25/17 12/26/17 12/27/17 12/28/17 23:59 23:59 23:59 23:59 Intake Total 100 4958.667 593.333 Output Total 1051 675 Balance 100 3907.667 -81.667 - Objective General Appearance: positive: Alert, Moderate distress, Anxious Eyes Bilateral: positive: Normal inspection, PERRL Eyes: OU Conjunctivae pale ENT: positive: ENT inspection nml, Pharynx nml, Dry mucous membranes Neck: positive: Nml inspection, Thyroid nml, No JVD, Lymphadenopathy (R), Lymphadenopathy (L) Respiratory: positive: Chest non-tender, No respiratory distress, Wheezes, Rales Cardiovascular: positive: Regular rate & rhythm, No gallop Peripheral Pulses: 1+ Radial (R), 1+ Radial (L) Abdomen: positive: Non-tender, Nml bowel sounds, Other (rounded, soft) Back: positive: Nml inspection Skin: positive: No rash, Warm, Dry Extremities: positive: Non-tender, Full ROM, Pedal edema, Joint swelling Neurologic/Psychiatric: positive: Oriented x3, CN's nml (2-12), Motor nml, Depressed mood/affect Reflexes: Bicep (R): 2+, Bicep (L): 2+ - Lab Results Fish Bones: 12/28/17 05:30 12/28/17 05:30 Other Labs: Lab Results x24hrs 12/28/17 12/28/17 Range/Units 05:30 05:30 WBC 6.9 (4.8-10.8) x10^3/uL RBC 4.61 (4.20-5.40) 10^6/uL Hgb 13.4 (12.0-16.0) g/dL Hct 40.0 (37.0-47.0) % MCV 86.7 (81.0-99.0) fL MCH 29.0 (27.0-31.0) pg MCHC 33.5 (32.0-36.0) g/dL RDW 14.7 (12.0-15.0) % Plt Count 156 (130-450) 10^3/uL MPV 8.4 (7.9-10.8) fL Neut # (Auto) 5.2 (1.5-6.6) 10^3/uL Lymph # (Auto) 1.1 L (1.5-3.5) 10^3/uL [place] # (Auto) 0.4 (0.0-1.0) 10^3/uL Eos # (Auto) 0.1 (0.0-0.7) 10^3/uL Baso # (Auto) 0.0 (0.0-0.1) 10^3/uL Absolute Nucleated RBC 0.00 x10^3/uL Nucleated RBC % 0.1 /100WBC Sodium 133 L (135-145) mmol/L Potassium 3.2 L (3.5-5.0) mmol/L Chloride 101 (101-111) mmol/L Carbon Dioxide 26 (21-32) mmol/L Anion Gap 6.0 (6-13) BUN 13 (6-20) mg/dL Creatinine 0.7 (0.4-1.0) mg/dL Estimated GFR (MDRD) 82 L (>89) Glucose 106 H (70-100) mg/dL Calcium 8.0 L (8.5-10.3) mg/dL - Diagnostic Imaging Diagnostic Imaging Results: positive: Prelim report reviewed, Final report reviewed ABX Reporting Has patient been on IV antibiotics over the past 48 hours?: Yes Assessment/Plan - Problem List (1) Perforated diverticulum of large intestine Impression: An abdominal CT was completed and shows a perforated sigmoid colon diverticulitis. There were small locules of free air within the mid mesentery. Dr. Messi Padron is following and recommended NPO at the beginning of her stay , and has now resumed a low residual diet. She is on Flagyl and Zosyn IV, which continues. She states that she has much less pain in her lower abdominal quadrants. Plan: Continue IV antibiotics and monitor for worsening condition. (2) Clostridium difficile diarrhea Impression: The patient is prescribed a PPI at home that has been resumed here, but will need to be changed to an H2 airk, since PPI's can cause c-diff. A stool sample for C-diff PCR was positive on 12/26/17, do contact precautions remain in place. The patient admits to ongoing stools that become worse with any oral intake. She believes that the more solid foods are helping in the frequency. She is tolerating the oral dosing of vanco. Plan: Continue oral vanco, probiotic and monitor skin condition around anus. (3) Cor pulmonale Impression: An echocardiogram was completed on 12/27/17 and shows severely abnormal right heart pressures with an RVSP at rest of 119 mmHg. Spironolactone would be the best treatment for this. Plan: Start low dose Spironolactone at 12.5 mg BID and monitor daily labs for increased K+. (4) Heart failure, congestive, etiology unknown Impression: Diastolic dysfunction; Plan: Consider low dose Coreg at 3.125 mg PO BID and monitor for bradycardia. (5) COPD (chronic obstructive pulmonary disease) Impression: The patient admits to a life-long history of tobacco dependence, and states that she quit "5 days ago, was planning to quit, and was down to 2 puffs per day ". She is oxygen dependent at home, and states that she no longer has a home oxygen order. She is prescribed a LABA and a rescue inhaler at home, which continue here. Plan: Order a walking oxygen saturation test and continue usual medications and supplemental oxygen. Qualifiers: COPD type: unspecified COPD Qualified Code(s): J44.9 - Chronic obstructive pulmonary disease, unspecified (6) GERD (gastroesophageal reflux disease) Impression: Shellie has a long-standing history of this and admits to taking "TUMS" from her home supply as she keeps her purse in her bed with her. She also is prescribed a PPI at home. After reviewing her chart, it looks like she is not prescribed a PPI here. PPIs can cause C-diff, so this should be changed before discharge- to an H2 [place]. Plan: Continue IV PPI, added a magnesium to labs, GI cocktail PRN for this acute episode of heart burn. Qualifiers: Esophagitis presence: esophagitis presence not specified Qualified Code(s) : K21.9 - Gastro-esophageal reflux disease without esophagitis
[2017-12-28] MEDS: VANCOMYCIN 125 MG CAPSULE PO SCH ×4 (09:24→22:11)
[2017-12-28] MEDS: POTASSIUM CHLORIDE 20 MEQ/15 ML UDC PO SCH ×2 (09:24→21:06)
[2017-12-28] MEDS: ENOXAPARIN 40 MG/0.4 ML SYRINGE SUBQ SCH (09:24)
[2017-12-28] MEDS: SACCHAROMYCES BOULARDII 250 MG CAPSULE PO SCH ×2 (09:24→17:49)
[2017-12-28] MEDS ORDERED: GI COCKTAIL 120 ML BOTTLE PO PRN (10:42)
[2017-12-28] MEDS ORDERED: CALCIUM CARBONATE CHEW 500 MG TABLET PO PRN (10:43)
[2017-12-28] MEDS: SPIRONOLACTONE 25 MG TABLET PO SCH ×2 (11:39→21:07)
[2017-12-28] MEDS: PANTOPRAZOLE 40 MG VIAL IVP SCH ×2 (11:43→21:07)
[2017-12-28] MEDS: GABAPENTIN 100 MG CAPSULE PO SCH ×2 (13:35→21:07)
[2017-12-28] MEDS: IPRATROPIUM/ALBUTEROL 3 ML NEB INH PRN (15:00)
[2017-12-29] MEDS: metroNIDAZOLE 500 MG/100 ML 500 MG/100 ML BAG IV SCH ×2 (00:37→08:37)
[2017-12-29] MEDS: SODIUM CHLORIDE FLUSH 0.9% 10 ML SYRINGE IVP SCH ×3 (00:38→16:23)
[2017-12-29] MEDS: SODIUM CHLORIDE FLUSH 0.9% 10 ML SYRINGE IVP PRN ×4 (01:48→19:29)
[2017-12-29] MEDS: PIPERACILLIN/TAZOBACTAM 3.375 GM in SODIUM CHLORIDE 0.9% MINIBAG 100 ML IV SCH ×2 (05:11→10:47)
[2017-12-29] MEDS: GABAPENTIN 100 MG CAPSULE PO SCH ×3 (05:12→21:23)
[2017-12-29 06:38] LABS: BASOPHILS % (AUTO) 0.4 %; EOSINOPHILS # (AUTO) 0.1 10^3/uL (0.0-0.7); EOSINOPHILS % (AUTO) 1.2 %; HGB - HEMOGLOBIN 12.9 g/dL (12.0-16.0); LYMPHOCYTES # (AUTO) 0.9 10^3/uL (1.5-3.5); LYMPHOCYTES % (AUTO) 12.8 %; MEAN CORPUSCULAR HEMOGLOBIN 29.4 pg (27.0-31.0); MEAN CORPUSCULAR HGB CONC 33.8 g/dL (32.0-36.0); MEAN PLATELET VOLUME 8.2 fL (7.9-10.8); MONOCYTES # (AUTO) 0.4 10^3/uL (0.0-1.0); MONOCYTES % (AUTO) 5.5 %; NEUTROPHILS # (AUTO) 5.6 10^3/uL (1.5-6.6); NEUTROPHILS % (AUTO) 80.1 %; PLT - PLATELET COUNT 152 10^3/uL (130-450); RED BLOOD COUNT 4.39 10^6/uL (4.20-5.40); RED CELL DISTRIBUTION WIDTH 14.8 % (12.0-15.0); WHITE BLOOD COUNT 6.9 x10^3/uL (4.8-10.8)
[2017-12-29 06:48] LABS: ALBUMIN 2.5 g/dL (3.2-5.5); BILIRUBIN,TOTAL 0.7 mg/dL (0.2-1.0); CREATININE 0.7 mg/dL (0.4-1.0); MAGNESIUM 1.3 mg/dL (1.7-2.8)
[2017-12-29] MEDS: VANCOMYCIN 125 MG CAPSULE PO SCH ×4 (08:37→21:23)
[2017-12-29] MEDS: SACCHAROMYCES BOULARDII 250 MG CAPSULE PO SCH ×2 (08:37→16:22)
[2017-12-29] MEDS: PANTOPRAZOLE 40 MG VIAL IVP SCH (08:37)
[2017-12-29] MEDS: SPIRONOLACTONE 25 MG TABLET PO SCH ×2 (08:50→21:22)
[2017-12-29] MEDS: ENOXAPARIN 40 MG/0.4 ML SYRINGE SUBQ SCH (08:51)
[2017-12-29] MEDS: HYDROmorphone 0.5 MG/0.5 ML SYRINGE IVP PRN ×2 (10:47→19:29)
[2017-12-29] MEDS: LISINOPRIL 5 MG TABLET PO SCH (10:47)
--- NOTE | 2017-12-29 15:12 | PROVIDER PROGRESS NOTE ---
Subjective - Prog Note Date Prog Note Date: 12/29/17 Prog Note Time: 15:08 - Subjective Pt reports feeling: Improved Subjective: Shellie requests a POLST form to be filled out, and has concerns about " qualifying for home oxygen, since she is out". She denies new symptoms such as chest pain, increased shortness of breath, nausea, vomiting, or an increased cough. Current Medications - Current Medications Current Medications: Active Medications Albuterol/Ipratropium (Duoneb) 3 ml INH Q4HR PRN PRN Reason: Wheezing Last Admin: 12/29/17 16:50 Dose: 3 ml Albuterol/Ipratropium (Duoneb) 3 ml INH QID PRN PRN Reason: Shortness of Air/Wheezing Benzonatate (Tessalon) 100 mg PO TID PRN PRN Reason: Cough Last Admin: 12/27/17 17:52 Dose: 100 mg Budesonide (Pulmicort) 0.5 mg INH RTBID [facility] Calcium Carbonate/Glycine (Tums) 500 mg PO TID PRN PRN Reason: Heartburn Last Admin: 12/29/17 16:22 Dose: 500 mg Ciprofloxacin (Cipro) 500 mg PO BID [facility] Enoxaparin Sodium (Lovenox) 40 mg SUBQ DAILY [facility] Last Admin: 12/29/17 08:51 Dose: 40 mg Famotidine (Pepcid) 20 mg PO BID [facility] Last Admin: 12/29/17 16:23 Dose: 20 mg Gabapentin (Neurontin) 200 mg PO TID [facility] Last Admin: 12/29/17 13:50 Dose: 200 mg Hydromorphone HCl (Dilaudid Inj Syringe) 0.5 mg IVP Q2H PRN PRN Reason: Pain 8 to 10 Last Admin: 12/29/17 10:47 Dose: 0.5 mg Lisinopril (Zestril) 2.5 mg PO DAILY [facility] Metoprolol Succinate (Toprol Xl) 12.5 mg PO DAILY [facility] Last Admin: 12/29/17 16:23 Dose: 12.5 mg Metronidazole (Flagyl) 500 mg PO Q8H [facility] Last Admin: 12/29/17 16:22 Dose: 500 mg Multi-Ingredient Mouthwash/Gargle () 30 ml PO BID PRN PRN Reason: Heartburn Ondansetron HCl (Zofran Inj) 4 mg IVP Q6HR PRN PRN Reason: Nausea / Vomiting Prochlorperazine Edisylate (Compazine Inj) 10 mg IVP Q6HR PRN PRN Reason: Nausea / Vomiting Saccharomyces Boulardii (Florastor) 500 mg PO BIDWM [facility] Last Admin: 12/29/17 16:22 Dose: 500 mg Sodium Chloride (Normal Saline Flush 0.9%) 10 ml IVP PRN PRN PRN Reason: NEEDED PER PROVIDER ORDERS Last Admin: 12/29/17 05:57 Dose: 10 ml Sodium Chloride (Normal Saline Flush 0.9%) 10 ml IVP 0100,0900,1700 [facility] Last Admin: 12/29/17 16:23 Dose: 10 ml Spironolactone (Aldactone) 12.5 mg PO BID [facility] Last Admin: 12/29/17 08:50 Dose: Not Given Vancomycin HCl (Vancocin) 125 mg PO QID [facility] Last Admin: 12/29/17 16:22 Dose: 125 mg Albuterol Sulfate [Proair Hfa Inhaler] 2 puffs INH Q4H PRN 11/25/16 Cilostazol [Pletal] 100 mg PO BID 12/27/17 Gabapentin [Neurontin] 200 mg PO TID 12/27/17 Ibuprofen [Motrin] 800 mg PO DAILY 12/27/17 Ipratropium/Albuterol Sulfate [Iprat-Albut 0.5-3(2.5) mg/3 ml] 3 ml INH QID PRN 12/27/17 Meloxicam [Mobic] 15 mg PO DAILY PRN 12/27/17 Objective - Vital Signs/Intake & Output Reviewed Vital Signs: Yes Vital Signs: Vital Signs x48h Temp Pulse Pulse Resp BP BP Pulse Ox 12/29/17 10:46 110/68 12/29/17 10:30 92 20 12/29/17 10:05 94/58 L 12/29/17 08:48 36.9 C 96 18 80/45 L 97 Intake & Output: Intake & Output 12/26/17 12/27/17 12/28/17 12/29/17 23:59 23:59 23:59 23:59 Intake Total 100 4958.667 2121.833 1150 Output Total 1051 675 3 Balance 100 3907.667 3239.636 5023 - Objective General Appearance: positive: No acute distress, Alert Eyes Bilateral: positive: Normal inspection, PERRL ENT: positive: ENT inspection nml, Pharynx nml, No signs of dehydration Neck: positive: Nml inspection, Thyroid nml, No JVD Respiratory: positive: Chest non-tender, No respiratory distress, Wheezes, Rhonchi Cardiovascular: positive: Regular rate & rhythm, Tachycardia, Systolic murmur, Decreased pulse(s) Peripheral Pulses: 1+ Radial (R), 1+ Radial (L) Abdomen: positive: Nml bowel sounds, Guarding, Other (rounded, soft) Back: positive: Nml inspection Skin: positive: No rash, Warm, Dry Extremities: positive: Non-tender, Full ROM, Nml appearance Neurologic/Psychiatric: positive: Oriented x3, CN's nml (2-12), Motor nml, Sensation nml, Weakness, Depressed mood/affect Reflexes: Bicep (R): 3+, Bicep (L): 3+ - Lab Results Fish Bones: 12/29/17 06:25 12/30/17 18:24 Other Labs: Lab Results x24hrs 12/29/17 12/29/17 Range/Units 06:25 06:25 WBC 6.9 (4.8-10.8) x10^3/uL RBC 4.39 (4.20-5.40) 10^6/uL Hgb 12.9 (12.0-16.0) g/dL Hct 38.2 (37.0-47.0) % MCV 87.0 (81.0-99.0) fL MCH 29.4 (27.0-31.0) pg MCHC 33.8 (32.0-36.0) g/dL RDW 14.8 (12.0-15.0) % Plt Count 152 (130-450) 10^3/uL MPV 8.2 (7.9-10.8) fL Neut # (Auto) 5.6 (1.5-6.6) 10^3/uL Lymph # (Auto) 0.9 L (1.5-3.5) 10^3/uL [place] # (Auto) 0.4 (0.0-1.0) 10^3/uL Eos # (Auto) 0.1 (0.0-0.7) 10^3/uL Baso # (Auto) 0.0 (0.0-0.1) 10^3/uL Absolute Nucleated RBC 0.00 x10^3/uL Nucleated RBC % 0.0 /100WBC Sodium 132 L (135-145) mmol/L Potassium 3.7 (3.5-5.0) mmol/L Chloride 102 (101-111) mmol/L Carbon Dioxide 25 (21-32) mmol/L Anion Gap 5.0 L (6-13) BUN 12 (6-20) mg/dL Creatinine 0.7 (0.4-1.0) mg/dL Estimated GFR (MDRD) 82 L (>89) Glucose 154 H (70-100) mg/dL Calcium 8.0 L (8.5-10.3) mg/dL Magnesium 1.3 L (1.7-2.8) mg/dL Total Bilirubin 0.7 (0.2-1.0) mg/dL AST 19 (10-42) IU/L ALT 19 (10-60) IU/L Alkaline Phosphatase 63 (42-121) IU/L Total Protein 5.0 L (6.7-8.2) g/dL Albumin 2.5 L (3.2-5.5) g/dL Globulin 2.5 (2.1-4.2) g/dL Albumin/Globulin Ratio 1.0 (1.0-2.2) - Diagnostic Imaging Diagnostic Imaging Results: positive: Prelim report reviewed, Final report reviewed ABX Reporting Has patient been on IV antibiotics over the past 48 hours?: No Assessment/Plan - Problem List (1) Perforated diverticulum of large intestine Impression: An abdominal CT was completed and shows a perforated sigmoid colon diverticulitis. There were small locules of free air within the mid mesentery. Dr. Messi Padron is following and recommended NPO at the beginning of her stay , and has now resumed a low residual diet. She is now on day 2 of this advanced diet, and is tolerating it well. She was changed to Flagyl, oral vanco , and oral Cipro. She states that she has much less pain in her lower abdominal quadrants. Plan: Continue oral antibiotics and monitor for worsening condition. (2) Clostridium difficile diarrhea Impression: The patient is prescribed a PPI at home that has been resumed here, but will need to be changed to an H2 shereen, since PPI's can cause c-diff. A stool sample for C-diff PCR was positive on 12/26/17, do contact precautions remain in place. The patient admits to ongoing stools that become worse with any oral intake. She believes that the more solid foods are helping in the frequency. She is tolerating the oral dosing of vanco, oral flagyl, and oral Cipro. Plan: Continue oral vanco, probiotic and monitor skin condition around anus. (3) Cor pulmonale Impression: An echocardiogram was completed on 12/27/17 and shows severely abnormal right heart pressures with an RVSP at rest of 119 mmHg. Spironolactone would be the best treatment for this. Plan: Continue low dose Spironolactone at 12.5 mg BID and monitor daily labs for increased K+. (4) Heart failure, congestive, etiology unknown Impression: Diastolic dysfunction; The patient is fairly functional at home and lives independently. She was started on low dose metoprolol to avoid pulmonary effects that Coreg may cause. Plan: Continue metoprolol and monitor for bradycardia. (5) COPD (chronic obstructive pulmonary disease) Impression: The patient admits to a life-long history of tobacco dependence, and states that she quit "5 days ago, was planning to quit, and was down to 2 puffs per day ". She is oxygen dependent at home, and states that she no longer has a home oxygen order. She is prescribed a LABA and a rescue inhaler at home, which continue here. A walking oxygen saturation test was completed and shows the need for supplemental O2 at rest. Plans to fax a new order to [facility]. Plan: Continue usual medications and supplemental oxygen. Qualifiers: COPD type: unspecified COPD Qualified Code(s): J44.9 - Chronic obstructive pulmonary disease, unspecified (6) GERD (gastroesophageal reflux disease) Impression: Shellie has a long-standing history of this and admits to taking "TUMS" from her home supply as she keeps her purse in her bed with her. She also is prescribed a PPI at home that was changed to H2 shereen due to the potential PPI causing C- diff. Plan: Continue H2 shereen and monitor for heart burn. Qualifiers: Esophagitis presence: esophagitis presence not specified Qualified Code(s) : K21.9 - Gastro-esophageal reflux disease without esophagitis
[2017-12-29] MEDS: metroNIDAZOLE 250 MG TABLET PO SCH (16:22)
[2017-12-29] MEDS: METOPROLOL SUCCINATE 25 MG TABLET PO SCH (16:23)
[2017-12-29] MEDS: FAMOTIDINE 20 MG TABLET PO SCH ×2 (16:23→21:21)
[2017-12-29] MEDS: IPRATROPIUM/ALBUTEROL 3 ML NEB INH PRN (16:50)
--- NOTE | 2017-12-29 17:18 | PROVIDER PROGRESS NOTE ---
Assessment/Plan - Problem List (1) Perforated diverticulum of large intestine Assessment/Plan: Continues to improve clinically; rec: home soon on oral antibiotics such as cipro/flagyl. (2) Clostridium difficile diarrhea Assessment/Plan: slowly improving with therapy; rec: continue present therapy; stop PPI if possible. - Current Meds Current Meds: Current Medications Generic Name Dose Route Start Last Admin Trade Name Freq PRN Reason Stop Dose Admin Albuterol/Ipratropium 3 ml 12/26/17 22:24 12/29/17 16:50 Duoneb INH 3 ml Q4HR PRN Administration Wheezing Benzonatate 100 mg 12/27/17 08:18 12/27/17 17:52 Tessalon PO 100 mg TID PRN Administration Cough Calcium Carbonate/Glycine 500 mg 12/28/17 10:43 12/29/17 16:22 Tums PO 500 mg TID PRN Administration Heartburn Enoxaparin Sodium 40 mg 12/27/17 09:00 12/29/17 08:51 Lovenox SUBQ 40 mg DAILY [facility] Administration Famotidine 20 mg 12/29/17 17:00 12/29/17 16:23 Pepcid PO 20 mg BID [facility] Administration Gabapentin 200 mg 12/28/17 14:00 12/29/17 13:50 Neurontin PO 200 mg TID [facility] Administration Hydromorphone HCl 0.5 mg 12/26/17 22:18 12/29/17 10:47 Dilaudid Inj Syringe IVP 0.5 mg Q2H PRN Administration Pain 8 to 10 Metoprolol Succinate 12.5 mg 12/29/17 17:00 12/29/17 16:23 Toprol Xl PO 12.5 mg DAILY [facility] Administration Metronidazole 500 mg 12/29/17 17:00 12/29/17 16:22 Flagyl PO 500 mg Q8H [facility] Administration Saccharomyces Boulardii 500 mg 12/27/17 14:15 12/29/17 16:22 Florastor PO 500 mg BIDWM [facility] Administration Sodium Chloride 10 ml 12/26/17 22:18 12/29/17 05:57 Normal Saline Flush 0.9% IVP 10 ml PRN PRN Administration NEEDED PER PROVIDER ORDERS Sodium Chloride 10 ml 12/27/17 01:00 12/29/17 16:23 Normal Saline Flush 0.9% IVP 10 ml 0100,0900,1700 [facility] Administration Spironolactone 12.5 mg 12/28/17 10:00 12/29/17 08:50 Aldactone PO Not Given BID [facility] Vancomycin HCl 125 mg 12/27/17 09:00 12/29/17 16:22 Vancocin PO 125 mg QID [facility] Administration - Lab Result Fish Bone Diagrams: 12/29/17 06:25 12/29/17 06:25 Subjective - Subjective Patient Reports: Feeling Better, Resting Comfortably, No Complaints, Diarrhea ( 2 loose stools yesterday) Objective Vital Signs: Vital Signs - 24 hr 12/28/17 12/29/17 12/29/17 21:50 00:21 00:56 Temperature 36.9 C Heart Rate 112 H Heart Rate [ 96 98 Brachial] Respiratory 18 19 18 Rate Blood Pressure 112/58 L [Left Brachial artery] Blood Pressure [Right Brachial artery] O2 Saturation 96 97 12/29/17 12/29/17 12/29/17 08:48 10:05 10:30 Temperature 36.9 C Heart Rate 92 Heart Rate [ 96 Brachial] Respiratory 18 20 Rate Blood Pressure 80/45 L [Left Brachial artery] Blood Pressure 94/58 L [Right Brachial artery] O2 Saturation 97 12/29/17 12/29/17 12/29/17 10:46 15:51 16:50 Temperature 37.3 C Heart Rate 106 H Heart Rate [ 104 H Brachial] Respiratory 18 20 Rate Blood Pressure 110/68 105/63 [Left Brachial artery] Blood Pressure [Right Brachial artery] O2 Saturation 95 Oxygen O2 Source Nasal cannula I&O (Last 24 Hrs): Intake and Output Totals x24h 12/27/17 12/28/17 12/29/17 23:59 23:59 23:59 Intake Total 4958.667 2121.833 1150 Output Total 1051 675 3 Balance 3907.667 2700.609 0537 General: Alert, Oriented x3, Cooperative, No acute distress Abdomen: Normal bowel sounds, Soft, No hepatospenomegaly, No masses, Other ( minimal suprapubic tenderness without guarding/rebound) Extremities: No edema, No tenderness/swelling - Results Results: Laboratory Results WBC 6.9 x10^3/uL (4.8-10.8) 12/29/17 06:25 RBC 4.39 10^6/uL (4.20-5.40) 12/29/17 06:25 Hgb 12.9 g/dL (12.0-16.0) 12/29/17 06:25 Hct 38.2 % (37.0-47.0) 12/29/17 06:25 MCV 87.0 fL (81.0-99.0) 12/29/17 06:25 MCH 29.4 pg (27.0-31.0) 12/29/17 06:25 MCHC 33.8 g/dL (32.0-36.0) 12/29/17 06:25 RDW 14.8 % (12.0-15.0) 12/29/17 06:25 Plt Count 152 10^3/uL (130-450) 12/29/17 06:25 MPV 8.2 fL (7.9-10.8) 12/29/17 06:25 Neut # (Auto) 5.6 10^3/uL (1.5-6.6) 12/29/17 06:25 Lymph # (Auto) 0.9 10^3/uL (1.5-3.5) L 12/29/17 06:25 [place] # (Auto) 0.4 10^3/uL (0.0-1.0) 12/29/17 06:25 Eos # (Auto) 0.1 10^3/uL (0.0-0.7) 12/29/17 06:25 Baso # (Auto) 0.0 10^3/uL (0.0-0.1) 12/29/17 06:25 Absolute Nucleated RBC 0.00 x10^3/uL 12/29/17 06:25 Band Neuts % (Manual) Not Reportable 12/27/17 05:35 Abnorm Lymph % (Manual) Not Reportable 12/27/17 05:35 Nucleated RBC % 0.0 /100WBC 12/29/17 06:25 Neutrophils # (Manual) Not Reportable 12/27/17 05:35 Lymphocytes # (Manual) Not Reportable 12/27/17 05:35 Monocytes # (Manual) Not Reportable 12/27/17 05:35 Eosinophils # (Manual) Not Reportable 12/27/17 05:35 Basophils # (Manual) Not Reportable 12/27/17 05:35 Differential Comment MANUAL=AUTO DIFF 12/27/17 05:35 Platelet Estimate NORMAL (130-450,000) (NORMAL) 12/27/17 05:35 Platelet Morphology NORMAL APPEARANCE (NORMAL) 12/27/17 05:35 RBC Morph Micro Appear NORMAL APPEARANCE (NORMAL) 12/27/17 05:35 PT 13.2 secs (9.9-12.6) H 12/27/17 02:16 INR 1.2 (0.8-1.2) 12/27/17 02:16 APTT 24.4 secs (24.9-33.3) L 12/27/17 02:16 Sodium 132 mmol/L (135-145) L 12/29/17 06:25 Potassium 3.7 mmol/L (3.5-5.0) 12/29/17 06:25 Chloride 102 mmol/L (101-111) 12/29/17 06:25 Carbon Dioxide 25 mmol/L (21-32) 12/29/17 06:25 Anion Gap 5.0 (6-13) L 12/29/17 06:25 BUN 12 mg/dL (6-20) 12/29/17 06:25 Creatinine 0.7 mg/dL (0.4-1.0) 12/29/17 06:25 Estimated GFR (MDRD) 82 (>89) L 12/29/17 06:25 Glucose 154 mg/dL (70-100) H 12/29/17 06:25 Lactic Acid 0.8 mmol/L (0.5-2.2) 12/27/17 02:16 Calcium 8.0 mg/dL (8.5-10.3) L 12/29/17 06:25 Magnesium 1.3 mg/dL (1.7-2.8) L 12/29/17 06:25 Total Bilirubin 0.7 mg/dL (0.2-1.0) 12/29/17 06:25 AST 19 IU/L (10-42) 12/29/17 06:25 ALT 19 IU/L (10-60) 12/29/17 06:25 Alkaline Phosphatase 63 IU/L (42-121) 12/29/17 06:25 Troponin I < 0.04 ng/mL (<0.49) 12/26/17 19:42 B-Natriuretic Peptide 275 pg/mL (5-100) H 12/26/17 19:42 Total Protein 5.0 g/dL (6.7-8.2) L 12/29/17 06:25 Albumin 2.5 g/dL (3.2-5.5) L 12/29/17 06:25 Globulin 2.5 g/dL (2.1-4.2) 12/29/17 06:25 Albumin/Globulin Ratio 1.0 (1.0-2.2) 12/29/17 06:25 Lipase 28 U/L (22-51) 12/26/17 19:42 TSH < 0.08 uIU/mL (0.34-5.60) L 12/29/17 06:25 ABX Reporting Has patient been on IV antibiotics over the past 48 hours?: Yes
[2017-12-29] MEDS: CIPROFLOXACIN 250 MG TABLET PO SCH ×2 (18:48→21:23)
[2017-12-29] MEDS: BUDESONIDE 0.5 MG/2 ML NEB INH SCH (21:22)
[2017-12-29] MEDS: CELECOXIB 100 MG CAPSULE PO SCH ×2 (21:22→21:24)
[2017-12-30] MEDS: metroNIDAZOLE 250 MG TABLET PO SCH ×3 (01:44→16:16)
[2017-12-30] MEDS: SODIUM CHLORIDE FLUSH 0.9% 10 ML SYRINGE IVP SCH ×3 (01:44→16:16)
[2017-12-30 05:05] LABS: ALBUMIN 2.4 g/dL (3.2-5.5); BILIRUBIN,TOTAL 0.9 mg/dL (0.2-1.0); CALCIUM 8.3 mg/dL (8.5-10.3); CREATININE 0.7 mg/dL (0.4-1.0); TOTAL PROTEIN 4.9 g/dL (6.7-8.2)
[2017-12-30] MEDS: GABAPENTIN 100 MG CAPSULE PO SCH ×3 (06:37→21:03)
[2017-12-30] MEDS: BUDESONIDE 0.5 MG/2 ML NEB INH SCH ×3 (09:20→18:07)
[2017-12-30] MEDS: IPRATROPIUM/ALBUTEROL 3 ML NEB INH PRN ×3 (09:20→18:07)
[2017-12-30] MEDS: LISINOPRIL 5 MG TABLET PO SCH ×2 (09:46→10:02)
[2017-12-30] MEDS: SPIRONOLACTONE 25 MG TABLET PO SCH ×2 (10:00→21:08)
[2017-12-30] MEDS: ENOXAPARIN 40 MG/0.4 ML SYRINGE SUBQ SCH ×2 (10:01→20:03)
[2017-12-30] MEDS: CIPROFLOXACIN 250 MG TABLET PO SCH ×2 (10:01→21:04)
[2017-12-30] MEDS: CELECOXIB 100 MG CAPSULE PO SCH (10:01)
[2017-12-30] MEDS: SACCHAROMYCES BOULARDII 250 MG CAPSULE PO SCH ×2 (10:01→16:16)
[2017-12-30] MEDS: METOPROLOL SUCCINATE 25 MG TABLET PO SCH (10:02)
[2017-12-30] MEDS: FAMOTIDINE 20 MG TABLET PO SCH ×2 (10:02→21:04)
[2017-12-30] MEDS: VANCOMYCIN 125 MG CAPSULE PO SCH ×4 (10:03→21:04)
[2017-12-30] MEDS: FLUCONAZOLE 100 MG TABLET PO SCH (12:14)
[2017-12-30] MEDS ORDERED: MELOXICAM 7.5 MG TABLET PO SCH (15:00)
[2017-12-30] MEDS ORDERED: MELOXICAM 7.5 MG TABLET PO PRN (15:00)
--- NOTE | 2017-12-30 17:42 | PROVIDER PROGRESS NOTE ---
Subjective - Prog Note Date Prog Note Date: 12/30/17 Prog Note Time: 12:00 - Subjective Pt reports feeling: Improved Subjective: Shellie is very reserved about returning home as she does not have anyone there to be with her. She denies increased shortness of breath, nausea, vomiting or a new cough. She complains about dysuria, stating that she has urgency, and feels as if she has a "yeast infection". Current Medications - Current Medications Current Medications: Active Medications Albuterol/Ipratropium (Duoneb) 3 ml INH Q4HR PRN PRN Reason: Wheezing Last Admin: 12/30/17 15:06 Dose: 3 ml Albuterol/Ipratropium (Duoneb) 3 ml INH QID PRN PRN Reason: Shortness of Air/Wheezing Benzonatate (Tessalon) 100 mg PO TID PRN PRN Reason: Cough Last Admin: 12/27/17 17:52 Dose: 100 mg Budesonide (Pulmicort) 0.5 mg INH RTBID [facility] Last Admin: 12/30/17 09:20 Dose: 0.5 mg Calcium Carbonate/Glycine (Tums) 500 mg PO TID PRN PRN Reason: Heartburn Last Admin: 12/29/17 16:22 Dose: 500 mg Cilostazol (Pletal) 100 mg PO BID [facility] Ciprofloxacin (Cipro) 500 mg PO BID [facility] Last Admin: 12/30/17 10:01 Dose: 500 mg Enoxaparin Sodium (Lovenox) 40 mg SUBQ DAILY [facility] Last Admin: 12/30/17 10:01 Dose: 40 mg Famotidine (Pepcid) 20 mg PO BID [facility] Last Admin: 12/30/17 10:02 Dose: 20 mg Fluconazole (Diflucan) 200 mg PO DAILY [facility] Stop: 01/01/18 11:59 Last Admin: 12/30/17 12:14 Dose: 200 mg Furosemide (Lasix) 20 mg PO DAILY [facility] Gabapentin (Neurontin) 200 mg PO TID [facility] Last Admin: 12/30/17 13:42 Dose: 200 mg Hydromorphone HCl (Dilaudid Inj Syringe) 0.5 mg IVP Q2H PRN PRN Reason: Pain 8 to 10 Last Admin: 12/29/17 19:29 Dose: 0.5 mg Lisinopril (Zestril) 2.5 mg PO DAILY [facility] Last Admin: 12/30/17 10:02 Dose: Not Given Meloxicam (Mobic) 15 mg PO DAILY [facility] Metoprolol Succinate (Toprol Xl) 12.5 mg PO DAILY [facility] Last Admin: 12/30/17 10:02 Dose: 12.5 mg Metronidazole (Flagyl) 500 mg PO Q8H [facility] Last Admin: 12/30/17 16:16 Dose: 500 mg Multi-Ingredient Mouthwash/Gargle () 30 ml PO BID PRN PRN Reason: Heartburn Ondansetron HCl (Zofran Inj) 4 mg IVP Q6HR PRN PRN Reason: Nausea / Vomiting Last Admin: 12/30/17 02:39 Dose: 4 mg Phenazopyridine HCl (Pyridium) 100 mg PO TID [facility] Prochlorperazine Edisylate (Compazine Inj) 10 mg IVP Q6HR PRN PRN Reason: Nausea / Vomiting Saccharomyces Boulardii (Florastor) 500 mg PO BIDWM [facility] Last Admin: 12/30/17 16:16 Dose: 500 mg Sodium Chloride (Normal Saline Flush 0.9%) 10 ml IVP PRN PRN PRN Reason: NEEDED PER PROVIDER ORDERS Last Admin: 12/29/17 19:29 Dose: 10 ml Sodium Chloride (Normal Saline Flush 0.9%) 10 ml IVP 0100,0900,1700 [facility] Last Admin: 12/30/17 16:16 Dose: 10 ml Spironolactone (Aldactone) 12.5 mg PO BID [facility] Last Admin: 12/30/17 10:00 Dose: 12.5 mg Vancomycin HCl (Vancocin) 125 mg PO QID [facility] Last Admin: 12/30/17 16:15 Dose: 125 mg Albuterol Sulfate [Proair Hfa Inhaler] 2 puffs INH Q4H PRN 11/25/16 Cilostazol [Pletal] 100 mg PO BID 12/27/17 Gabapentin [Neurontin] 200 mg PO TID 12/27/17 Ipratropium/Albuterol Sulfate [Iprat-Albut 0.5-3(2.5) mg/3 ml] 3 ml INH QID PRN 12/27/17 Meloxicam [Mobic] 15 mg PO DAILY 12/27/17 Objective - Vital Signs/Intake & Output Reviewed Vital Signs: Yes Vital Signs: Vital Signs x48h Temp Pulse Pulse Resp BP Pulse Ox 12/30/17 16:17 36.8 C 103 H 20 97/47 L 94 12/30/17 15:07 93 20 12/30/17 12:55 37.2 C 78 19 96/68 97 Intake & Output: Intake & Output 12/27/17 12/28/17 12/29/17 12/30/17 23:59 23:59 23:59 23:59 Intake Total 4958.667 2121.833 1400 1400 Output Total 1051 675 3 300 Balance 3907.667 5033.021 6073 1100 - Objective General Appearance: positive: Alert, Moderate distress, Anxious Eyes Bilateral: positive: Normal inspection, PERRL Eyes: OU Conjunctivae pale ENT: positive: ENT inspection nml, Pharynx nml, No signs of dehydration Neck: positive: Nml inspection, Thyroid nml, No JVD, Stiff neck Respiratory: positive: Chest non-tender, Wheezes, Rhonchi Cardiovascular: positive: Regular rate & rhythm, Tachycardia, Systolic murmur, Decreased pulse(s) Peripheral Pulses: 1+ Radial (R), 1+ Radial (L) Abdomen: positive: Guarding, Abnml bowel sounds, Other (rounded, soft) Back: positive: Nml inspection Skin: positive: No rash, Warm, Dry, Pallor Extremities: positive: Non-tender, Full ROM, Nml appearance, No pedal edema Neurologic/Psychiatric: positive: Oriented x3, CN's nml (2-12), Motor nml, Sensation nml, Depressed mood/affect Reflexes: Bicep (R): 3+, Bicep (L): 3+ - Lab Results Fish Bones: 12/31/17 06:30 12/31/17 06:30 Other Labs: Lab Results x24hrs 12/30/17 Range/Units 04:30 Sodium 133 L (135-145) mmol/L Potassium 3.8 (3.5-5.0) mmol/L Chloride 101 (101-111) mmol/L Carbon Dioxide 26 (21-32) mmol/L Anion Gap 6.0 (6-13) BUN 21 H (6-20) mg/dL Creatinine 0.7 (0.4-1.0) mg/dL Estimated GFR (MDRD) 82 L (>89) Glucose 163 H (70-100) mg/dL Calcium 8.3 L (8.5-10.3) mg/dL Total Bilirubin 0.9 (0.2-1.0) mg/dL AST 93 H (10-42) IU/L ALT 71 H (10-60) IU/L Alkaline Phosphatase 89 (42-121) IU/L Total Protein 4.9 L (6.7-8.2) g/dL Albumin 2.4 L (3.2-5.5) g/dL Globulin 2.5 (2.1-4.2) g/dL Albumin/Globulin Ratio 1.0 (1.0-2.2) - Diagnostic Imaging Diagnostic Imaging Results: positive: Prelim report reviewed, Final report reviewed ABX Reporting Has patient been on IV antibiotics over the past 48 hours?: No Assessment/Plan - Problem List (1) Perforated diverticulum of large intestine Impression: An abdominal CT was completed and shows a perforated sigmoid colon diverticulitis. There were small locules of free air within the mid mesentery. Dr. Messi Padron is following and recommended NPO at the beginning of her stay , and has now resumed a low residual diet. She is now on day 3 of this advanced diet, and is tolerating it well. She was changed to Flagyl, oral vanco , and oral Cipro. She states that she has much less pain in her lower abdominal quadrants. She continues to have loose stools, but less frequently. Plan: Continue oral antibiotics and monitor for worsening condition. (2) Clostridium difficile diarrhea Impression: The patient is prescribed a PPI at home that has been resumed here, but will need to be changed to an H2 shereen, since PPI's can cause c-diff. A stool sample for C-diff PCR was positive on 12/26/17, do contact precautions remain in place. The patient admits to ongoing stools that become worse with any oral intake. She believes that the more solid foods are helping in the frequency. She is tolerating the oral dosing of vanco, oral flagyl, and oral Cipro. Plan: Continue oral vanco, probiotic and monitor skin condition around anus. (3) Cor pulmonale Impression: An echocardiogram was completed on 12/27/17 and shows severely abnormal right heart pressures with an RVSP at rest of 119 mmHg. Spironolactone was started and continues. Plan: Continue low dose Spironolactone at 12.5 mg BID and monitor daily labs for increased K+. (4) Heart failure, congestive, etiology unknown Impression: Diastolic dysfunction; The patient is fairly functional at home and lives independently. She was started on low dose metoprolol. Plan: Continue metoprolol and monitor for bradycardia. (5) COPD (chronic obstructive pulmonary disease) Impression: The patient admits to a life-long history of tobacco dependence, and states that she quit "5 days ago, was planning to quit, and was down to 2 puffs per day ". She is oxygen dependent at home, and states that she no longer has a home oxygen order. She is prescribed a LABA and a rescue inhaler at home, which continue here. A walking oxygen saturation test was completed yesterday and shows the need for supplemental O2 at rest. Plan: Continue usual medications and supplemental oxygen. Qualifiers: COPD type: unspecified COPD Qualified Code(s): J44.9 - Chronic obstructive pulmonary disease, unspecified (6) GERD (gastroesophageal reflux disease) Impression: Shellie has a long-standing history of this and admits to taking "TUMS" from her home supply as she keeps her purse in her bed with her. She also is prescribed a PPI at home that was changed to H2 shereen due to the potential PPI causing C- diff. Plan: Continue H2 shereen and monitor for heart burn. Qualifiers: Esophagitis presence: esophagitis presence not specified Qualified Code(s) : K21.9 - Gastro-esophageal reflux disease without esophagitis (7) Oxygen dependent Impression: Although the patient is medically cleared to go, she continues to demonstrate activity intolerance. An order for home oxygen has been sent for pre-approval. Plan: Home oxygen order upon discharge. (8) Chest pain Impression: The patient described her chest pain as localized to her LUQ, and at times radiates to her bilateral shoulders. She denies diaphoresis during this episode , chest tightness, pressure, or increased dizziness. She states that this started upon admission, and has gotten progressively worse. She states that after she "drinks fizzy soda" is when it is most noticeable. She also says that the chest discomfort is accompanied by some palpitations. Plan: Order EKG, serial troponins, consider changing back to a PPI, and monitor. (9) Dysuria Impression: The patient complained of "burning with urination", so 2 days of Diflican was ordered. She requests Pyridium. I suspect that she is low on fluids due to ongoing loose stools. Plan: Continue to encourage oral intake and give PRN Pyridium for symptoms.
[2017-12-30] MEDS ORDERED: FUROSEMIDE 20 MG TABLET PO SCH (18:00)
[2017-12-30] MEDS: PHENAZOPYRIDINE 100 MG TABLET PO SCH ×2 (18:41→21:04)
[2017-12-30] MEDS: FUROSEMIDE 20 MG TABLET PO SCH (18:41)
[2017-12-30 19:07] LABS: CALCIUM 8.9 mg/dL (8.5-10.3); CREATININE 0.9 mg/dL (0.4-1.0)
[2017-12-30] MEDS ORDERED: NITROGLYCERIN 2% PASTE TOP SCH (20:00)
[2017-12-30] MEDS: CILOSTAZOL 100 MG TABLET PO SCH (21:04)
[2017-12-31] MEDS: metroNIDAZOLE 250 MG TABLET PO SCH ×3 (00:25→16:35)
[2017-12-31] MEDS: SODIUM CHLORIDE FLUSH 0.9% 10 ML SYRINGE IVP SCH ×3 (00:28→16:36)
[2017-12-31] MEDS ORDERED: METOPROLOL SUCCINATE 25 MG TABLET PO SCH (06:07)
[2017-12-31] MEDS: GABAPENTIN 100 MG CAPSULE PO SCH ×3 (06:43→21:23)
[2017-12-31] MEDS: PHENAZOPYRIDINE 100 MG TABLET PO SCH ×3 (06:43→21:23)
[2017-12-31 06:44] LABS: BASOPHILS # (AUTO) 0.1 10^3/uL (0.0-0.1); BASOPHILS % (AUTO) 0.6 %; EOSINOPHILS # (AUTO) 0.1 10^3/uL (0.0-0.7); EOSINOPHILS % (AUTO) 1.1 %; HGB - HEMOGLOBIN 12.6 g/dL (12.0-16.0); LYMPHOCYTES # (AUTO) 0.9 10^3/uL (1.5-3.5); LYMPHOCYTES % (AUTO) 11.7 %; MEAN CORPUSCULAR HEMOGLOBIN 29.3 pg (27.0-31.0); MEAN CORPUSCULAR HGB CONC 32.9 g/dL (32.0-36.0); MEAN PLATELET VOLUME 8.4 fL (7.9-10.8); MONOCYTES # (AUTO) 0.4 10^3/uL (0.0-1.0); MONOCYTES % (AUTO) 5.5 %; NEUTROPHILS # (AUTO) 6.5 10^3/uL (1.5-6.6); NEUTROPHILS % (AUTO) 81.1 %; PLT - PLATELET COUNT 172 10^3/uL (130-450); RED BLOOD COUNT 4.29 10^6/uL (4.20-5.40); RED CELL DISTRIBUTION WIDTH 14.8 % (12.0-15.0)
[2017-12-31 06:56] LABS: ALBUMIN 2.6 g/dL (3.2-5.5); BILIRUBIN,TOTAL 0.8 mg/dL (0.2-1.0); CALCIUM 8.5 mg/dL (8.5-10.3); CREATININE 0.8 mg/dL (0.4-1.0); TOTAL PROTEIN 5.3 g/dL (6.7-8.2)
--- NOTE | 2017-12-31 07:02 | PROVIDER PROGRESS NOTE ---
Ear Muff Assembler Note - Ear Muff Assembler Note Ear Muff Assembler Note: The patient's complaints of chest pain earlier in the day prompted a troponin checked which came back positive at 1.19. Subsequent testing at 6 hour interval later showed the troponin dropping down to 0.86. The patient was started on Nitropaste and Lovenox, 1 mg/kg twice daily, and her metoprolol was doubled to 25 mg twice daily. No EKG changes were seen and the patient was asymptomatic without any complaints of chest pain. Serial troponins were ordered.
[2017-12-31] MEDS: BUDESONIDE 0.5 MG/2 ML NEB INH SCH ×2 (07:47→20:03)
[2017-12-31] MEDS ORDERED: MELOXICAM 7.5 MG TABLET PO SCH (09:00)
[2017-12-31] MEDS ORDERED: cloNIDine 0.1 MG TABLET PO SCH ×2 (09:00)
[2017-12-31] MEDS ORDERED: IBUPROFEN 800 MG TABLET PO SCH (09:00)
[2017-12-31] MEDS: ASPIRIN EC 325 MG TABLET PO SCH (09:20)
[2017-12-31] MEDS: SACCHAROMYCES BOULARDII 250 MG CAPSULE PO SCH ×2 (09:20→16:36)
[2017-12-31] MEDS: CIPROFLOXACIN 250 MG TABLET PO SCH (09:20)
[2017-12-31] MEDS: FLUCONAZOLE 100 MG TABLET PO SCH (09:21)
[2017-12-31] MEDS: FAMOTIDINE 20 MG TABLET PO SCH ×2 (09:21→21:23)
[2017-12-31] MEDS: VANCOMYCIN 125 MG CAPSULE PO SCH ×4 (09:21→21:23)
[2017-12-31] MEDS: FUROSEMIDE 20 MG TABLET PO SCH (09:21)
[2017-12-31] MEDS: METOPROLOL SUCCINATE 25 MG TABLET PO SCH (09:22)
[2017-12-31] MEDS: LISINOPRIL 5 MG TABLET PO SCH (09:22)
[2017-12-31] MEDS: CILOSTAZOL 100 MG TABLET PO SCH (09:22)
[2017-12-31] MEDS: ENOXAPARIN 40 MG/0.4 ML SYRINGE SUBQ SCH (09:24)
[2017-12-31] MEDS: ENOXAPARIN 80 MG/0.8 ML SYRINGE SUBQ SCH ×2 (10:25→21:21)
--- NOTE | 2017-12-31 10:35 | ADVANCE CARE PLANNING NOTE ---
Advance Care Planning - Date/Time Date: 12/29/17 Time: 12:00 - Purpose of encounter Text: To establish goals of care and confirm code status. Talk through end of life wishes. - Parties in attendance Parties in attendance: Myself, SHEY Gould and my patient Shellie Pritchard. - Decisional capacity Decisional capacity of: Full capacity. She can state her medical diagnoses and proves to be a good historian. - Subjective/Patient's story Subjective/Patient's story: Shellie states, I have lived long enough, and have never had surgery. I do not want any measures taken if my heart stops or if I stop breathing. I don't want to live my life dependent on machines. - Objective/Medical story Objective/Medical Story: The patient answered no to all 4 questions surrounding resuscitation measures including; chest compressions, shocking, cardiac medications, and intubation. She understands that staff will allow a natural if her heart stops or she stops breathing. She agrees with limited interventions such as IV fluids, IV antibiotics, or other non-invasive procedures. She does not want artificial tube feedings. - Goals of Care Goals of care determinations: Treat this acute bowel perforation, treat for symptoms and to cure C-diff using antibiotics. Goals of care are comfort focused. - Plan Plan: Continue to treat acute illness and follow with POLST form as DNR with limited interventions. - Code Status Code Status: Do Not Attempt Resuscitation - Time Spent on Advance Care Planning Time spent on advance care plannin
[2017-12-31] MEDS ORDERED: LORazepam 0.5 MG TABLET PO PRN (13:12)
[2017-12-31] MEDS: OXYMETAZOLINE NASAL SPRAY NAS SCH ×2 (13:24→21:16)
[2017-12-31] MEDS: SODIUM CHLORIDE 0.65% NASAL SPRAY NAS PRN (13:42)
[2017-12-31] MEDS: NITROGLYCERIN SL 0.4 MG TABLET SL PRN ×2 (14:10→18:39)
[2017-12-31] MEDS: SODIUM CHLORIDE 0.9% 500 ML IV ONE ×3 (14:10→16:50)
[2017-12-31] MEDS ORDERED: SODIUM CHLORIDE 0.9% 1,000 ML IV ONE ×3 (14:34→16:24)
[2017-12-31] MEDS: guaiFENesin 600 MG TABLET PO SCH (16:36)
--- NOTE | 2017-12-31 16:56 | XRAY Report ---
Procedure Date: 12/31/2017 Accession Number: [id number] / [id number] Procedure: XR - Chest 1 View X-Ray CPT Code: 54124 FULL RESULT: EXAM: CHEST RADIOGRAPHY EXAM DATE: 12/31/2017 04:48 PM. CLINICAL HISTORY: Hypotension, chest pain. COMPARISON: Chest 12/26/2017. TECHNIQUE: 1 view. FINDINGS: Lungs/Pleura: Moderate diffuse bilateral airspace disease, left greater than right, new compared to the prior exam, could represent pulmonary edema. Pneumonia is also possible. Mild bibasilar atelectasis or scarring. No definite pleural effusion. No pneumothorax. Mediastinum: Within exam limitations, the cardiomediastinal contour is normal. IMPRESSION: Moderate diffuse bilateral airspace disease, left greater than right, new compared to the prior exam, could represent pulmonary edema. Pneumonia is also possible. RADIA
[2017-12-31] MEDS ORDERED: IOPAMIDOL-300 100 ML VIAL ONE (16:57)
[2017-12-31] MEDS ORDERED: IOPAMIDOL-300 100 ML VIAL IVP ONE (18:00)
[2017-12-31] MEDS: MORPHINE 2 MG/ML SYRINGE IVP PRN (18:19)
--- NOTE | 2017-12-31 18:23 | PROVIDER PROGRESS NOTE ---
Assessment/Plan - Problem List (1) Hypotension Assessment/Plan: Critical Care time: 60 min. Pt moved to ICU and I took over her care. 2L fluid bolus given and BP still <90. Levophed started, to keep MAP> 65. Will recycle troponins to R/O cardiogenic shock and get a repeat Echo for LV wall motion and EF. Will stop TIERRA, Clonidine, Lasix and Spironolactone. Will hold B-shereen til BP > 90 systolic. Will reculture blood to R/O septic shock. Will check a lactic acid level. Her antibiotics will be broadened empirically. Will check a CXR for HCAP and get a sputum sample for culture. (2) Acute non-ST elevation myocardial infarction (NSTEMI) Assessment/Plan: The serial EKGs shows evolving inferior T wave abnormalities and also evolving anterior T wave abnormalities. Will continue ASA, no Lovenox or Heparin until re-eval of perforated bowel with a CT today. Will restart B-shereen and nitro when BP will alow. Because her CP was also radiating to R shoulder, will evaluate for a PE with a CTA of chest. I discussed the potential need for a coronary angio with the Pt and she would agree to have it "if it was done in this hospital" otherwise she "refuses transfer for a coronary angio". She has a DNR ordered and a POLST in chart. I reviewed these wishes with the Pt today. (3) Clostridium difficile diarrhea Assessment/Plan: Continue po antibiotics. (4) Perforated diverticulum of large intestine Assessment/Plan: Re-evaluate status of perforation with a CT abdomen and pelvis, when MAP >65. (5) Cor pulmonale Assessment/Plan: Pt was to start Spironolactone and is on Lasix for R heart failure with possible hepatomegaly andascites. The diuretics will be stopped and imaging done to confirm. Continue nebs for management of her COPD which is likely the cause of her pulmonary HTN and Cor Pulmonale. Because Cor Pulmonale is very volume sensative, she may be hypovolemic from having been on Lasix. (6) Hyperthyroidism Assessment/Plan: This Dx was based on a low TSH and Clonidne was added to B-shereen to preven unopposed alpha stimulation. Will obtain free T4 and free T3 values before reinstituting B-shereen and alpha shereen. (7) Peripheral vascular disease Assessment/Plan: The records were obtained from Dr Vanessa's office w.r.t. the Dx of PVD and starting Pletal. It appears it was started empirically for foot pain, but a 2017 leg arterial Doppler done here showed only minimal bilateral lower extremity plaque. The patient admitted to me she hardly ever takes the Pletal. Will stop Pletal as she DOES NOT HAVE LEG PVD or claudication. - Current Meds Current Meds: Current Medications Generic Name Dose Route Start Last Admin Trade Name Freq PRN Reason Stop Dose Admin Albuterol/Ipratropium 3 ml 12/26/17 22:24 12/30/17 18:07 Duoneb INH 3 ml Q4HR PRN Administration Wheezing Aspirin 325 mg 12/31/17 07:00 12/31/17 09:20 Ecotrin PO 325 mg DAILY [facility] Administration Benzonatate 100 mg 12/27/17 08:18 12/27/17 17:52 Tessalon PO 100 mg TID PRN Administration Cough Budesonide 0.5 mg 12/29/17 07:00 12/31/17 07:47 Pulmicort INH 0.5 mg RTBID [facility] Administration Calcium Carbonate/Glycine 500 mg 12/28/17 10:43 12/29/17 16:22 Tums PO 500 mg TID PRN Administration Heartburn Enoxaparin Sodium 70 mg 12/31/17 10:00 12/31/17 10:25 Lovenox SUBQ 70 mg BID [facility] Administration Famotidine 20 mg 12/29/17 17:00 12/31/17 09:21 Pepcid PO 20 mg BID [facility] Administration Fluconazole 200 mg 12/30/17 12:00 12/31/17 09:21 Diflucan PO 01/01/18 11:59 200 mg DAILY [facility] Administration Gabapentin 200 mg 12/28/17 14:00 12/31/17 13:37 Neurontin PO 200 mg TID [facility] Administration Guaifenesin 600 mg 12/31/17 17:00 12/31/17 16:36 Mucinex PO 600 mg BID [facility] Administration Norepinephrine Bitartrate 8 mg 250 mls @ 15 mls/hr 12/31/17 17:00 12/31/17 18 :13 / Dextrose IV 6 mcg/min .[id number] [facility] 11.25 mls/hr Protocol Titration 8 MCG/MIN Metoprolol Succinate 25 mg 12/31/17 08:00 12/31/17 09:22 Toprol Xl PO 25 mg DAILY [facility] Administration Metronidazole 500 mg 12/29/17 17:00 12/31/17 16:35 Flagyl PO 500 mg Q8H [facility] Administration Morphine Sulfate 2 mg 12/31/17 14:13 12/31/17 18:19 Morphine IVP 2 mg Q2H PRN Administration PAIN Nitroglycerin 0.4 mg 12/31/17 14:13 12/31/17 14:10 Nitrostat SL 0.4 mg Q5MIN PRN Administration Chest Pain Ondansetron HCl 4 mg 12/26/17 22:18 12/30/17 02:39 Zofran Inj IVP 4 mg Q6HR PRN Administration Nausea / Vomiting Oxymetazoline HCl 2 sprays 12/31/17 14:00 12/31/17 13:24 Afrin ALEK 01/03/18 13:59 2 spr BID [facility] Administration Phenazopyridine HCl 100 mg 12/30/17 18:00 12/31/17 13:37 Pyridium PO 100 mg TID [facility] Administration Saccharomyces Boulardii 500 mg 12/27/17 14:15 12/31/17 16:36 Florastor PO 500 mg BIDWM [facility] Administration Sodium Chloride 10 ml 12/26/17 22:18 12/29/17 19:29 Normal Saline Flush 0.9% IVP 10 ml PRN PRN Administration NEEDED PER PROVIDER ORDERS Sodium Chloride 10 ml 12/27/17 01:00 12/31/17 16:36 Normal Saline Flush 0.9% IVP 10 ml 0100,0900,1700 [facility] Administration Sodium Chloride 2 sprays 12/31/17 13:12 12/31/17 13:42 [place] ALEK 1 spr Q4HR PRN Administration Nasal Congestion Vancomycin HCl 250 mg 12/31/17 11:18 12/31/17 16:36 Vancocin PO 250 mg QID [facility] Administration - Lab Result Fish Bone Diagrams: 12/31/17 06:30 12/31/17 06:30 - Additional Planning My Orders: My Active Orders 12/31/17 16:27 Chest Angio (PE) [CT] Stat 12/31/17 16:29 LORazepam [Ativan] 1 mg PO Q6H PRN 12/31/17 16:42 Abdomen/Pelvis W/ [CT] Stat 12/31/17 17:00 Dextrose 5% [D5w] 242 ml NORepinephrine [Levophed] 8 mg IV 8 mcg/min guaiFENesin [Mucinex] 600 mg PO BID Subjective - Subjective Patient Reports: Chest Pain, Pain, Other (Mild CP with radiation to R shoulder this afternoon.) Nursing Reports: Other (Pt got 1 sl NTG and BP dropped to 60 systolic.) Objective Vital Signs: Vital Signs - 24 hr 12/31/17 12/31/17 12/31/17 00:24 05:41 07:50 Temperature 36.7 C 36.8 C Heart Rate 94 Heart Rate [ 89 104 H Brachial] Respiratory 16 20 20 Rate Blood Pressure [Left Brachial artery] Blood Pressure 109/74 108/83 H [Right Brachial artery] O2 Saturation 94 95 12/31/17 12/31/17 12/31/17 08:14 11:00 14:08 Temperature 37.4 C 37.3 C Heart Rate Heart Rate [ 96 102 H 118 H Brachial] Respiratory 20 20 Rate Blood Pressure [Left Brachial artery] Blood Pressure 108/59 L 121/56 L 105/60 [Right Brachial artery] O2 Saturation 92 92 12/31/17 12/31/17 12/31/17 14:15 14:20 14:25 Temperature Heart Rate Heart Rate [ 120 H 104 H 106 H Brachial] Respiratory Rate Blood Pressure [Left Brachial artery] Blood Pressure 62/45 L 69/44 L 65/45 L [Right Brachial artery] O2 Saturation 12/31/17 12/31/17 12/31/17 14:27 14:30 14:35 Temperature Heart Rate Heart Rate [ 112 H 103 H 104 H Brachial] Respiratory 22 24 Rate Blood Pressure 59/41 L 76/45 L 72/43 L [Left Brachial artery] Blood Pressure [Right Brachial artery] O2 Saturation 93 93 12/31/17 12/31/17 12/31/17 14:50 15:00 15:15 Temperature Heart Rate Heart Rate [ 103 H 103 H 105 H Brachial] Respiratory 20 24 24 Rate Blood Pressure 79/47 L 81/47 L 72/56 L [Left Brachial artery] Blood Pressure [Right Brachial artery] O2 Saturation 92 91 L 92 12/31/17 12/31/17 12/31/17 15:31 16:45 16:50 Temperature 36.9 C Heart Rate Heart Rate [ 104 H 105 H 108 H Brachial] Respiratory 27 H 26 H 26 H Rate Blood Pressure 86/55 L [Left Brachial artery] Blood Pressure 79/57 L 83/64 L [Right Brachial artery] O2 Saturation 93 93 97 12/31/17 12/31/17 17:00 18:00 Temperature Heart Rate Heart Rate [ 102 H 105 H Brachial] Respiratory 19 26 H Rate Blood Pressure 133/93 H [Left Brachial artery] Blood Pressure 121/86 H [Right Brachial artery] O2 Saturation 95 94 Oxygen O2 Source Nasal cannula I&O (Last 24 Hrs): Intake and Output Totals x24h 12/29/17 12/30/17 12/31/17 23:59 23:59 23:59 Intake Total 1400 2150 3461.50 Output Total 3 300 1275 Balance 1397 1850 2186.50 General: Alert, Oriented x3, Other (Wet cough) HEENT: Mucous membr. moist/pink Neck: Supple, No JVD Neuro: Non Focal Cardiovascular: Regular rate, No murmurs Respiratory: Other (Diminished ant and post, no wheezing or rales.) Abdomen: Soft, No tenderness Extremities: No edema, No tenderness/swelling - Results Results: Laboratory Results WBC 8.0 x10^3/uL (4.8-10.8) 12/31/17 06:30 RBC 4.29 10^6/uL (4.20-5.40) 12/31/17 06:30 Hgb 12.6 g/dL (12.0-16.0) 12/31/17 06:30 Hct 38.2 % (37.0-47.0) 12/31/17 06:30 MCV 89.0 fL (81.0-99.0) 12/31/17 06:30 MCH 29.3 pg (27.0-31.0) 12/31/17 06:30 MCHC 32.9 g/dL (32.0-36.0) 12/31/17 06:30 RDW 14.8 % (12.0-15.0) 12/31/17 06:30 Plt Count 172 10^3/uL (130-450) 12/31/17 06:30 MPV 8.4 fL (7.9-10.8) 12/31/17 06:30 Neut # (Auto) 6.5 10^3/uL (1.5-6.6) 12/31/17 06:30 Lymph # (Auto) 0.9 10^3/uL (1.5-3.5) L 12/31/17 06:30 Sargent # (Auto) 0.4 10^3/uL (0.0-1.0) 12/31/17 06:30 Eos # (Auto) 0.1 10^3/uL (0.0-0.7) 12/31/17 06:30 Baso # (Auto) 0.1 10^3/uL (0.0-0.1) 12/31/17 06:30 Absolute Nucleated RBC 0.00 x10^3/uL 12/31/17 06:30 Band Neuts % (Manual) Not Reportable 12/27/17 05:35 Abnorm Lymph % (Manual) Not Reportable 12/27/17 05:35 Nucleated RBC % 0.0 /100WBC 12/31/17 06:30 Neutrophils # (Manual) Not Reportable 12/27/17 05:35 Lymphocytes # (Manual) Not Reportable 12/27/17 05:35 Monocytes # (Manual) Not Reportable 12/27/17 05:35 Eosinophils # (Manual) Not Reportable 12/27/17 05:35 Basophils # (Manual) Not Reportable 12/27/17 05:35 Differential Comment MANUAL=AUTO DIFF 12/27/17 05:35 Platelet Estimate NORMAL (130-450,000) (NORMAL) 12/27/17 05:35 Platelet Morphology NORMAL APPEARANCE (NORMAL) 12/27/17 05:35 RBC Morph Micro Appear NORMAL APPEARANCE (NORMAL) 12/27/17 05:35 PT 13.2 secs (9.9-12.6) H 12/27/17 02:16 INR 1.2 (0.8-1.2) 12/27/17 02:16 APTT 24.4 secs (24.9-33.3) L 12/27/17 02:16 Sodium 138 mmol/L (135-145) 12/31/17 06:30 Potassium 4.9 mmol/L (3.5-5.0) 12/31/17 06:30 Chloride 101 mmol/L (101-111) 12/31/17 06:30 Carbon Dioxide 31 mmol/L (21-32) 12/31/17 06:30 Anion Gap 6.0 (6-13) 12/31/17 06:30 BUN 17 mg/dL (6-20) 12/31/17 06:30 Creatinine 0.8 mg/dL (0.4-1.0) 12/31/17 06:30 Estimated GFR (MDRD) 70 (>89) L 12/31/17 06:30 Glucose 112 mg/dL (70-100) H 12/31/17 06:30 Lactic Acid 0.8 mmol/L (0.5-2.2) 12/27/17 02:16 Calcium 8.5 mg/dL (8.5-10.3) 12/31/17 06:30 Magnesium 1.3 mg/dL (1.7-2.8) L 12/29/17 06:25 Total Bilirubin 0.8 mg/dL (0.2-1.0) 12/31/17 06:30 AST 58 IU/L (10-42) H 12/31/17 06:30 ALT 75 IU/L (10-60) H 12/31/17 06:30 Alkaline Phosphatase 83 IU/L (42-121) 12/31/17 06:30 Troponin I 0.51 ng/mL (<0.49) H* 12/31/17 14:59 B-Natriuretic Peptide 275 pg/mL (5-100) H 12/26/17 19:42 Total Protein 5.3 g/dL (6.7-8.2) L 12/31/17 06:30 Albumin 2.6 g/dL (3.2-5.5) L 12/31/17 06:30 Globulin 2.7 g/dL (2.1-4.2) 12/31/17 06:30 Albumin/Globulin Ratio 1.0 (1.0-2.2) 12/31/17 06:30 Lipase 28 U/L (22-51) 12/26/17 19:42 TSH < 0.08 uIU/mL (0.34-5.60) L 12/29/17 06:25
[2017-12-31] MEDS: cefTRIAXone 1 GM in SODIUM CHLORIDE 0.9% MINIBAG 100 ML IV SCH (18:47)
[2017-12-31] MEDS ORDERED: MIN OIL/DIMETHICON/COCONUT OIL 92 GM TUBE TOP PRN (19:53)
[2017-12-31] MEDS: IPRATROPIUM/ALBUTEROL 3 ML NEB INH PRN (20:03)
--- NOTE | 2017-12-31 20:14 | CT Report ---
Procedure Date: 12/31/2017 Accession Number: [id number] / [id number] Procedure: CT - Chest Angio (PE) CPT Code: FULL RESULT: EXAM: CT ANGIOGRAM CHEST EXAM DATE: 12/31/2017 05:57 PM. CLINICAL HISTORY: CP and R shoulder pain, eval for PE. COMPARISON: None. TECHNIQUE: Routine helical imaging was performed through the chest in the pulmonary arterial phase. IV Contrast: 100 cc Isovue-300 IV. Reconstructions: Coronal 3-D MIP reconstructions.Sagittal and coronal. In accordance with CT protocol optimization, one or more of the following dose reduction techniques were utilized for this exam: automated exposure control, adjustment of mA and/or KV based on patient size, or use of iterative reconstructive technique. FINDINGS: Pulmonary Arteries: Diagnostic quality: Adequate through the segmental arteries. Negative for acute pulmonary embolism. The main pulmonary artery is enlarged measuring 35 mm in diameter and is larger than the adjacent ascending thoracic aorta. There is prominent tapering of pulmonary arteries in the lung periphery. 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 There is peribronchovascular consolidation within the right middle lobe and bilateral lower lobes. There is architectural distortion consistent with pulmonary fibrosis. There is patchy groundglass opacity within the left upper lobe and both lower lobes. The trachea appears normal in caliber and contour. There is a round endobronchial density measuring 6 mm in the proximal left lower lobe segmental airways, series 6 image 76. Mediastinum: There is cardiomegaly. The right ventricle and right atrium are dilated. There is no pericardial effusion. There is mild mediastinal lymphadenopathy. There are dense coronary artery calcifications. No thoracic aortic aneurysm is demonstrated. Thoracic Aorta: No dissection. Upper Abdomen: Dictated in a separate report. Other: None. IMPRESSION: 1. Negative for acute pulmonary embolism. 2. Dilated right sided cardiac chambers and enlarged main pulmonary artery. Findings suggestive of pulmonary artery hypertension. 3. Moderate to severe emphysema and lung fibrosis. 4. Patchy ground glass density. This could be chronic fibrosis, acute pneumonitis, pulmonary hemorrhage, viral pneumonia or drug reaction. 5. 6 mm round airway endobronchial nonobstructing density. Possible aspirated airway secretions versus endobronchial polyp versus foreign body or neoplasm. Recommend short-term interval follow-up chest CT. RADIA
[2017-12-31] MEDS: SODIUM CHLORIDE FLUSH 0.9% 10 ML SYRINGE IVP PRN ×2 (21:23→21:33)
--- NOTE | 2017-12-31 21:26 | XRAY Report ---
Procedure Date: 12/31/2017 Accession Number: [id number] / [id number] Procedure: XR - Chest for Line Placement CPT Code: FULL RESULT: EXAM: CHEST RADIOGRAPHY EXAM DATE: 12/31/2017 08:56 PM. CLINICAL HISTORY: Line placement. COMPARISON: CT pulmonary angiogram and CT of the abdomen and pelvis 12/31/2017. Chest radiograph 12/31/2017. TECHNIQUE: 1 view. FINDINGS: Lungs/Pleura: Moderate diffuse interstitial prominence, similar to recent prior exam. Lungs are hyperinflated suggesting emphysema. No pneumothorax. No large pleural effusion. No dense focal consolidation. Mediastinum: Within exam limitations, the cardiomediastinal contour is unremarkable. Other: Right central line tip terminates over the lower third of the SVC. IMPRESSION: 1. Satisfactory position of right central venous catheter. 2. Findings suggestive of COPD with superimposed mild to moderate CHF/volume overload. RADIA
--- NOTE | 2017-12-31 21:27 | CT Report ---
Procedure Date: 12/31/2017 Accession Number: [id number] / [id number] Procedure: CT - Abdomen/Pelvis W/ CPT Code: FULL RESULT: EXAM: CT ABDOMEN AND PELVIS EXAM DATE: 12/31/2017 05:57 PM. CLINICAL HISTORY: Perforated diverticulitis. Follow-up bowel perforation. COMPARISONS: ABDOMEN/PELVIS W/O 12/26/2017. TECHNIQUE: Routine helical CT imaging was performed through the abdomen and pelvis. IV contrast: 100 cc Isovue-300 IV. Enteric contrast: No. Reconstructions: Coronal and sagittal. In accordance with CT protocol optimization, one or more of the following dose reduction techniques were utilized for this exam: automated exposure control, adjustment of mA and/or KV based on patient size, or use of iterative reconstructive technique. FINDINGS: Lung Bases: There is chronic moderately advanced cystic lung disease. There is bilateral lower lobe pulmonary fibrosis. Findings appear without significant interval change. Liver: The capsule the liver has a mildly lobulated contour. There is no focal liver mass. No intrahepatic biliary dilatation. Gallbladder/Bile Ducts: There is a circular calcification in the expected location of the gallbladder which may represent gallbladder wall calcification versus a calcified stone. The appearance is unchanged. There is new fat stranding in the right upper quadrant around the common bile duct and along the falciform ligament. Spleen: Normal. Pancreas: No focal pancreatic lesion. Pancreas enhances homogeneously. Adrenal Glands: There is a small right adrenal nodule unchanged measuring 10 mm in diameter. Kidneys: Normal. No masses or hydronephrosis. Peritoneal Cavity/Bowel: There is a small contained collection of extraintestinal gas in the low left pelvis. The amount of gas appears minimally decreased. There is adjacent phlegmon. There are a moderate number of diverticula within the sigmoid colon with mild sigmoid colon wall thickening, unchanged. There is no new fluid collection. No organized drainable abscess. The appendix is well visualized and normal. Pelvic Organs: Urinary bladder is unremarkable. Uterus is normal in size. Vasculature: There is moderate atherosclerotic vascular disease without aneurysm. Bones: No significant abnormality. Other: None. IMPRESSION: 1. Evolving findings of previous localized sigmoid colon perforation secondary to diverticulitis. Slight decreased volume of gas and no organized drainable abscess. 2. New findings of periportal fat stranding around the liver. Differential diagnosis including cholangitis, hepatitis, cholecystitis or pancreatitis. RADIA
[2018-01-01] MEDS: metroNIDAZOLE 250 MG TABLET PO SCH ×3 (00:36→17:58)
[2018-01-01] MEDS: SODIUM CHLORIDE FLUSH 0.9% 10 ML SYRINGE IVP SCH ×3 (00:36→17:58)
[2018-01-01] MEDS: SODIUM CHLORIDE 0.9% 500 ML IV PRN (02:30)
[2018-01-01 05:36] LABS: BASOPHILS # (AUTO) 0.1 10^3/uL (0.0-0.1); BASOPHILS % (AUTO) 1.7 %; EOSINOPHILS # (AUTO) 0.1 10^3/uL (0.0-0.7); EOSINOPHILS % (AUTO) 1.3 %; HGB - HEMOGLOBIN 11.8 g/dL (12.0-16.0); LYMPHOCYTES # (AUTO) 1.3 10^3/uL (1.5-3.5); LYMPHOCYTES % (AUTO) 19.5 %; MEAN CORPUSCULAR HEMOGLOBIN 29.3 pg (27.0-31.0); MEAN CORPUSCULAR HGB CONC 33.8 g/dL (32.0-36.0); MEAN CORPUSCULAR VOLUME 86.9 fL (81.0-99.0); MEAN PLATELET VOLUME 9.5 fL (7.9-10.8); MONOCYTES # (AUTO) 0.5 10^3/uL (0.0-1.0); NEUTROPHILS # (AUTO) 4.9 10^3/uL (1.5-6.6); NEUTROPHILS % (AUTO) 70.5 %; PLT - PLATELET COUNT 169 10^3/uL (130-450); RED BLOOD COUNT 4.02 10^6/uL (4.20-5.40); RED CELL DISTRIBUTION WIDTH 14.6 % (12.0-15.0); WHITE BLOOD COUNT 6.9 x10^3/uL (4.8-10.8)
[2018-01-01 05:55] LABS: ALBUMIN 2.4 g/dL (3.2-5.5); ALBUMIN/GLOBULIN RATIO 0.9 (1.0-2.2); BILIRUBIN,TOTAL 0.4 mg/dL (0.2-1.0); CREATININE 0.6 mg/dL (0.4-1.0)
[2018-01-01] MEDS: PHENAZOPYRIDINE 100 MG TABLET PO SCH ×3 (06:20→21:21)
[2018-01-01] MEDS: BENZONATATE 100 MG CAPSULE PO PRN ×2 (06:20→13:58)
[2018-01-01] MEDS: GABAPENTIN 100 MG CAPSULE PO SCH ×3 (06:35→21:21)
[2018-01-01] MEDS: IBUPROFEN 400 MG TABLET PO PRN ×2 (06:56→11:47)
[2018-01-01] MEDS ORDERED: NITROGLYCERIN 2% PASTE TOP SCH (07:00)
[2018-01-01] MEDS: IPRATROPIUM/ALBUTEROL 3 ML NEB INH PRN ×3 (07:47→17:50)
[2018-01-01] MEDS: BUDESONIDE 0.5 MG/2 ML NEB INH SCH ×2 (07:47→17:49)
[2018-01-01] MEDS: ASPIRIN EC 325 MG TABLET PO SCH (08:38)
[2018-01-01] MEDS: SACCHAROMYCES BOULARDII 250 MG CAPSULE PO SCH ×2 (08:38→17:58)
[2018-01-01] MEDS: METOPROLOL SUCCINATE 25 MG TABLET PO SCH ×2 (08:39→20:37)
[2018-01-01] MEDS: guaiFENesin 600 MG TABLET PO SCH ×2 (08:39→20:38)
[2018-01-01] MEDS: FAMOTIDINE 20 MG TABLET PO SCH ×2 (08:39→20:38)
[2018-01-01] MEDS: FLUCONAZOLE 100 MG TABLET PO SCH (08:39)
[2018-01-01] MEDS: VANCOMYCIN 125 MG CAPSULE PO SCH ×4 (08:40→20:38)
[2018-01-01] MEDS: SODIUM CHLORIDE 0.65% NASAL SPRAY NAS PRN (08:44)
[2018-01-01] MEDS: OXYMETAZOLINE NASAL SPRAY NAS SCH ×2 (08:44→20:38)
[2018-01-01] MEDS: MORPHINE 2 MG/ML SYRINGE IVP PRN ×3 (08:49→18:07)
[2018-01-01] MEDS: ENOXAPARIN 80 MG/0.8 ML SYRINGE SUBQ SCH ×2 (08:51→20:38)
[2018-01-01] MEDS: ELECTROLYTE-A SOLUTION 1,000 ML IV SCH ×2 (10:00→20:23)
--- NOTE | 2018-01-01 10:19 | PROVIDER PROGRESS NOTE ---
Subjective - General Admit Date: 12/26/17 - Review of Systems All Other Systems: positive: Reviewed and negative - Other Other Information/Narrative: I was asked to check in on this patient initially evaluated by Dr. Messi Padron for complicated diverticulitis and c.diff. She became hypotensive yesterday and a CT scan of the abd and pelvis was repeated which demonstrated periportal fat stranding around the liver. She was started on low dose levophed last night but has since been weaned off. Additionally she had an AL and an echo on the demonstrates severe right heart failure. On evaluation of the patient she denies any abdominal pain and her diarrhea is improving. She is tolerating a regular diet. Objective - Patient Data Vital Signs: Vital Signs x48h Temp Pulse Pulse Resp BP Pulse Ox 01/01/18 10:00 115 H 20 73/52 L 91 L 01/01/18 09:00 135 H 23 71/55 L 92 01/01/18 08:00 97.4 C H 110 H 19 91/67 90 L 01/01/18 07:48 105 H 19 01/01/18 06:00 91 20 109/71 94 01/01/18 05:00 88 17 117/77 97 01/01/18 04:25 36.7 C 91 20 82/58 L 94 01/01/18 03:08 88 19 94/54 L 93 Weight: Weight 12/30/17 12/31/17 01/01/18 23:59 23:59 23:59 Weight (kg) 69.5 kg Intake & Output: Intake and Output Totals x24h 12/30/17 12/31/17 01/01/18 23:59 23:59 23:59 Intake Total 2150 3605.125 1730.125 Output Total 300 1575 100 Balance 1850 2030.125 1630.125 - Lab Results Lab Results: 01/01/18 05:05 01/01/18 05:05 Other Lab Results: Lab Results x24hrs 01/01/18 01/01/18 01/01/18 Range/Units 09:00 05:05 05:05 WBC (4.8-10.8) x10^3/uL RBC (4.20-5.40) 10^6/uL Hgb (12.0-16.0) g/dL Hct (37.0-47.0) % MCV (81.0-99.0) fL MCH (27.0-31.0) pg MCHC (32.0-36.0) g/dL RDW (12.0-15.0) % Plt Count (130-450) 10^3/uL MPV (7.9-10.8) fL Neut # (Auto) (1.5-6.6) 10^3/uL Lymph # (Auto) (1.5-3.5) 10^3/uL Sharp # (Auto) (0.0-1.0) 10^3/uL Eos # (Auto) (0.0-0.7) 10^3/uL Baso # (Auto) (0.0-0.1) 10^3/uL Absolute Nucleated RBC x10^3/uL Nucleated RBC % /100WBC Sodium 136 (135-145) mmol/L Potassium 3.9 (3.5-5.0) mmol/L Chloride 107 (101-111) mmol/L Carbon Dioxide 25 (21-32) mmol/L Anion Gap 4.0 L (6-13) BUN 15 (6-20) mg/dL Creatinine 0.6 (0.4-1.0) mg/dL Estimated GFR (MDRD) 98 (>89) Glucose 113 H (70-100) mg/dL Lactic Acid 2.2 (0.5-2.2) mmol/L Calcium 8.0 L (8.5-10.3) mg/dL Total Bilirubin 0.4 (0.2-1.0) mg/dL AST 50 H (10-42) IU/L ALT 65 H (10-60) IU/L Alkaline Phosphatase 93 (42-121) IU/L Troponin I 0.67 H* (<0.49) ng/mL Total Protein 5.0 L (6.7-8.2) g/dL Albumin 2.4 L (3.2-5.5) g/dL Globulin 2.6 (2.1-4.2) g/dL Albumin/Globulin Ratio 0.9 L (1.0-2.2) Lipase (22-51) U/L Free T4 (0.58-1.64) ng/dL Free T3 pg/mL (2.5-3.9) pg/mL 07/21/18 07/21/18 07/21/18 Range/Units 05:05 05:05 05:05 WBC 6.9 (4.8-10.8) x10^3/uL RBC 4.02 L (4.20-5.40) 10^6/uL Hgb 11.8 L (12.0-16.0) g/dL Hct 34.9 L (37.0-47.0) % MCV 86.9 (81.0-99.0) fL MCH 29.3 (27.0-31.0) pg MCHC 33.8 (32.0-36.0) g/dL RDW 14.6 (12.0-15.0) % Plt Count 169 (130-450) 10^3/uL MPV 9.5 (7.9-10.8) fL Neut # (Auto) 4.9 (1.5-6.6) 10^3/uL Lymph # (Auto) 1.3 L (1.5-3.5) 10^3/uL Sharp # (Auto) 0.5 (0.0-1.0) 10^3/uL Eos # (Auto) 0.1 (0.0-0.7) 10^3/uL Baso # (Auto) 0.1 (0.0-0.1) 10^3/uL Absolute Nucleated RBC 0.00 x10^3/uL Nucleated RBC % 0.1 /100WBC Sodium (135-145) mmol/L Potassium (3.5-5.0) mmol/L Chloride (101-111) mmol/L Carbon Dioxide (21-32) mmol/L Anion Gap (6-13) BUN (6-20) mg/dL Creatinine (0.4-1.0) mg/dL Estimated GFR (MDRD) (>89) Glucose (70-100) mg/dL Lactic Acid (0.5-2.2) mmol/L Calcium (8.5-10.3) mg/dL Total Bilirubin (0.2-1.0) mg/dL AST (10-42) IU/L ALT (10-60) IU/L Alkaline Phosphatase (42-121) IU/L Troponin I (<0.49) ng/mL Total Protein (6.7-8.2) g/dL Albumin (3.2-5.5) g/dL Globulin (2.1-4.2) g/dL Albumin/Globulin Ratio (1.0-2.2) Lipase (22-51) U/L Free T4 1.65 H (0.58-1.64) ng/dL Free T3 pg/mL 2.93 (2.5-3.9) pg/mL 01/01/18 12/31/17 12/31/17 Range/Units 05:00 14:59 12:33 WBC (4.8-10.8) x10^3/uL RBC (4.20-5.40) 10^6/uL Hgb (12.0-16.0) g/dL Hct (37.0-47.0) % MCV (81.0-99.0) fL MCH (27.0-31.0) pg MCHC (32.0-36.0) g/dL RDW (12.0-15.0) % Plt Count (130-450) 10^3/uL MPV (7.9-10.8) fL Neut # (Auto) (1.5-6.6) 10^3/uL Lymph # (Auto) (1.5-3.5) 10^3/uL Sharp # (Auto) (0.0-1.0) 10^3/uL Eos # (Auto) (0.0-0.7) 10^3/uL Baso # (Auto) (0.0-0.1) 10^3/uL Absolute Nucleated RBC x10^3/uL Nucleated RBC % /100WBC Sodium (135-145) mmol/L Potassium (3.5-5.0) mmol/L Chloride (101-111) mmol/L Carbon Dioxide (21-32) mmol/L Anion Gap (6-13) BUN (6-20) mg/dL Creatinine (0.4-1.0) mg/dL Estimated GFR (MDRD) (>89) Glucose (70-100) mg/dL Lactic Acid (0.5-2.2) mmol/L Calcium (8.5-10.3) mg/dL Total Bilirubin (0.2-1.0) mg/dL AST (10-42) IU/L ALT (10-60) IU/L Alkaline Phosphatase (42-121) IU/L Troponin I 0.51 H* 0.59 H* (<0.49) ng/mL Total Protein (6.7-8.2) g/dL Albumin (3.2-5.5) g/dL Globulin (2.1-4.2) g/dL Albumin/Globulin Ratio (1.0-2.2) Lipase 21 L (22-51) U/L Free T4 (0.58-1.64) ng/dL Free T3 pg/mL (2.5-3.9) pg/mL - Current Medications Current Medications: Current Medications Generic Name Dose Route Start Last Admin Trade Name Freq PRN Reason Stop Dose Admin Albuterol/Ipratropium 3 ml 12/26/17 22:24 12/31/17 20:03 Duoneb INH 3 ml Q4HR PRN Administration Wheezing Albuterol/Ipratropium 3 ml 12/28/17 07:51 01/01/18 07:47 Duoneb INH 3 ml QID PRN Administration Shortness of Air/Wheezing Aspirin 325 mg 12/31/17 07:00 01/01/18 08:38 Ecotrin PO 325 mg DAILY NEELAM Administration Benzonatate 100 mg 12/27/17 08:18 01/01/18 06:20 Tessalon PO 100 mg TID PRN Administration Cough Budesonide 0.5 mg 12/29/17 07:00 01/01/18 07:47 Pulmicort INH 0.5 mg RTBID NEELAM Administration Calcium Carbonate/Glycine 500 mg 12/28/17 10:43 12/29/17 16:22 Tums PO 500 mg TID PRN Administration Heartburn Enoxaparin Sodium 70 mg 12/31/17 10:00 01/01/18 08:51 Lovenox SUBQ 70 mg BID NEELAM Administration Famotidine 20 mg 12/29/17 17:00 01/01/18 08:39 Pepcid PO 20 mg BID NEELAM Administration Fluconazole 200 mg 12/30/17 12:00 01/01/18 08:39 Diflucan PO 01/01/18 11:59 200 mg DAILY NEELAM Administration Gabapentin 200 mg 12/28/17 14:00 01/01/18 06:35 Neurontin PO 200 mg TID NEELAM Administration Guaifenesin 600 mg 12/31/17 17:00 01/01/18 08:39 Mucinex PO 600 mg BID NEELAM Administration Norepinephrine Bitartrate 8 mg 250 mls @ 15 mls/hr 12/31/17 17:00 01/01/18 02 :25 / Dextrose IV 0 mcg/min .[id number] NEELAM 0 mls/hr Protocol Titration 8 MCG/MIN Ceftriaxone Sodium 1 gm/ 100 mls @ 200 mls/hr 12/31/17 19:00 12/31/17 19:44 Sodium Chloride IV Infused Q24H NEELAM Infusion Sodium Chloride 500 mls @ 0 mls/hr 12/31/17 19:52 01/01/18 10:00 Normal Saline 0.9% IV 20 mls/hr Q24H PRN Infusion TKO RATE TKO Parenteral Electrolytes 1,000 mls @ 100 mls/hr 01/01/18 10:00 01/01/18 10:00 Plasma-Lyte A Ph 7.4 IV 100 mls/hr .Q10H NEELAM Administration Protocol Ibuprofen 400 mg 01/01/18 06:24 01/01/18 06:56 Motrin PO 400 mg Q6HR PRN Administration PAIN Metoprolol Succinate 25 mg 12/31/17 08:00 01/01/18 08:39 Toprol Xl PO 25 mg DAILY NEELAM Administration Metronidazole 500 mg 12/29/17 17:00 01/01/18 06:20 Flagyl PO 500 mg Q8H NEELAM Administration Mineral Oil 1 applic 12/31/17 19:53 01/01/18 06:36 Cavilon TOP 1 applic PRN PRN Administration Skin Care Morphine Sulfate 2 mg 12/31/17 14:13 01/01/18 08:49 Morphine IVP 2 mg Q2H PRN Administration PAIN Nitroglycerin 0.4 mg 12/31/17 14:13 12/31/17 18:39 Nitrostat SL 0.4 mg Q5MIN PRN Administration Chest Pain Ondansetron HCl 4 mg 12/26/17 22:18 12/30/17 02:39 Zofran Inj IVP 4 mg Q6HR PRN Administration Nausea / Vomiting Oxymetazoline HCl 2 sprays 12/31/17 14:00 01/01/18 08:44 Afrin ALEK 01/03/18 13:59 1 spr BID NEELAM Administration Phenazopyridine HCl 100 mg 12/30/17 18:00 01/01/18 06:20 Pyridium PO 100 mg TID NEELAM Administration Saccharomyces Boulardii 500 mg 12/27/17 14:15 01/01/18 08:38 Florastor PO 500 mg BIDWM NEELAM Administration Sodium Chloride 10 ml 12/26/17 22:18 12/31/17 21:33 Normal Saline Flush 0.9% IVP 10 ml PRN PRN Administration NEEDED PER PROVIDER ORDERS Sodium Chloride 10 ml 12/27/17 01:00 01/01/18 08:40 Normal Saline Flush 0.9% IVP 10 ml [id number] NEELAM Administration Sodium Chloride 2 sprays 12/31/17 13:12 01/01/18 08:44 [place] ALEK 2 spr Q4HR PRN Administration Nasal Congestion Vancomycin HCl 250 mg 12/31/17 11:18 01/01/18 08:40 Vancocin PO 250 mg QID NEELAM Administration - Physical Exam General Appearance: positive: No acute distress Abdomen: positive: Other (soft, non-distended, non-tender to palpation) Impression/Plan - Problem List Problem List: complicated diverticulitis, c.diff colitis, recent AL, right heart failure, severe steroid dependent COPD - This patient is not a surgical candidate at our facility, and is unlikely to do well if surgery is required at a facility which could manage her many comorbidities. Her new CT finding of periportal fat stranding is likely secondary to venous congestion from her right sided heart failure. Clinically she seems to be resolving her complicated diverticulitis and c.diff as her WBC is normal, she is afebrile and she is tolerating a regular diet with no abdominal pain. Continue antibiotics with a plan for a 2 week total course.
[2018-01-01] MEDS: AZITHROMYCIN INJ 500 MG in SODIUM CHLORIDE 0.9% 250 ML IV SCH (11:05)
[2018-01-01] MEDS: LORazepam 0.5 MG TABLET PO PRN (12:23)
--- NOTE | 2018-01-01 14:00 | PROVIDER PROGRESS NOTE ---
Assessment/Plan - Problem List (1) Hypotension Assessment/Plan: Patient was hypotensive and required iv Levophed overnight til 2 am today. Iv fluids continue at 100 cc/hr as well after getting 2L saline iv boluses yesterday. Troponins did not respike. Echo does not suggest cardiogenic shock. But due to severe cor pulmonale, she could be very fluid sensitive and have volume depletion.Will continue crystalloid iv hydration. CXR and CT chest show a new pneumonia, which could be a cause of septic shock. Blood and sputum cultures are pending. Pt was started on iv Ceftriaxone since yesterday. Will also add iv Clinda for possible aspiration pneumonia. Lactic acid was borderline elevated at 2.2 this am, suggesting sepsis. (2) HCAP (healthcare-associated pneumonia) Assessment/Plan: CT chest shows infiltrates, ground glass changes and probable food in L bronchus (RN noted that she started to have CP after a coughing spell yesterday , which started when she was eating). Iv Ceftriaxone added yesterday. Today will add iv Clindamycin to cover oral emeli and anaerobes. Mucinex po started yesterday for a wet productive cough. Cough is more quiet today. Monitor CXRs. (3) Acute non-ST elevation myocardial infarction (NSTEMI) Assessment/Plan: BP is still borderline low and no B-shereen or Nitrates can be started. Continue ASA and statin. Monitor LFTs (4) Clostridium difficile diarrhea Assessment/Plan: Contiue po Vanco and Flagyl (5) Perforated diverticulum of large intestine Assessment/Plan: Slowly improving by CT imaging. Clinically also better, has been tolerating a diet. (6) Cor pulmonale Assessment/Plan: As in #1 Pt has severe pulmonary HTN and COPD by imaging. The Echo showed RV enlargement with depressed RV function. Continue gentle hydration. (7) Hyperthyroidism Assessment/Plan: Free T4 is .01 point above the normal range. Will plan on restarting B-shereen when BP will allow. - Current Meds Current Meds: Current Medications Generic Name Dose Route Start Last Admin Trade Name Freq PRN Reason Stop Dose Admin Albuterol/Ipratropium 3 ml 12/26/17 22:24 12/31/17 20:03 Duoneb INH 3 ml Q4HR PRN Administration Wheezing Albuterol/Ipratropium 3 ml 12/28/17 07:51 01/01/18 13:26 Duoneb INH 3 ml QID PRN Administration Shortness of Air/Wheezing Aspirin 325 mg 12/31/17 07:00 01/01/18 08:38 Ecotrin PO 325 mg DAILY NEELAM Administration Benzonatate 100 mg 12/27/17 08:18 01/01/18 06:20 Tessalon PO 100 mg TID PRN Administration Cough Budesonide 0.5 mg 12/29/17 07:00 01/01/18 07:47 Pulmicort INH 0.5 mg RTBID NEELAM Administration Calcium Carbonate/Glycine 500 mg 12/28/17 10:43 12/29/17 16:22 Tums PO 500 mg TID PRN Administration Heartburn Enoxaparin Sodium 70 mg 12/31/17 10:00 01/01/18 08:51 Lovenox SUBQ 70 mg BID NEELAM Administration Famotidine 20 mg 12/29/17 17:00 01/01/18 08:39 Pepcid PO 20 mg BID NEELAM Administration Gabapentin 200 mg 12/28/17 14:00 01/01/18 06:35 Neurontin PO 200 mg TID NEELAM Administration Guaifenesin 600 mg 12/31/17 17:00 01/01/18 08:39 Mucinex PO 600 mg BID NEELAM Administration Norepinephrine Bitartrate 8 mg 250 mls @ 15 mls/hr 12/31/17 17:00 01/01/18 02 :25 / Dextrose IV 0 mcg/min .[id number] NEELAM 0 mls/hr Protocol Titration 8 MCG/MIN Ceftriaxone Sodium 1 gm/ 100 mls @ 200 mls/hr 12/31/17 19:00 12/31/17 19:44 Sodium Chloride IV Infused Q24H NEELAM Infusion Sodium Chloride 500 mls @ 0 mls/hr 12/31/17 19:52 01/01/18 13:00 Normal Saline 0.9% IV 0 mls/hr Q24H PRN Infusion TKO RATE TKO Parenteral Electrolytes 1,000 mls @ 100 mls/hr 01/01/18 10:00 01/01/18 13:00 Plasma-Lyte A Ph 7.4 IV 100 mls/hr .Q10H NEELAM Infusion Protocol Azithromycin 500 mg/ Sodium 250 mls @ 250 mls/hr 01/01/18 11:00 01/01/18 12: 10 Chloride IV Infused Q24H NEELAM Infusion Ibuprofen 400 mg 01/01/18 06:24 01/01/18 11:47 Motrin PO 400 mg Q6HR PRN Administration PAIN Lorazepam 1 mg 12/31/17 16:29 01/01/18 12:23 Ativan PO 1 mg Q6H PRN Administration Anxiety Metronidazole 500 mg 12/29/17 17:00 01/01/18 06:20 Flagyl PO 500 mg Q8H NEELAM Administration Mineral Oil 1 applic 12/31/17 19:53 01/01/18 06:36 Cavilon TOP 1 applic PRN PRN Administration Skin Care Morphine Sulfate 2 mg 12/31/17 14:13 01/01/18 13:05 Morphine IVP 2 mg Q2H PRN Administration PAIN Nitroglycerin 0.4 mg 12/31/17 14:13 12/31/17 18:39 Nitrostat SL 0.4 mg Q5MIN PRN Administration Chest Pain Ondansetron HCl 4 mg 12/26/17 22:18 12/30/17 02:39 Zofran Inj IVP 4 mg Q6HR PRN Administration Nausea / Vomiting Oxymetazoline HCl 2 sprays 12/31/17 14:00 01/01/18 08:44 Afrin ALEK 01/03/18 13:59 1 spr BID NEELAM Administration Phenazopyridine HCl 100 mg 12/30/17 18:00 01/01/18 06:20 Pyridium PO 100 mg TID NEELAM Administration Saccharomyces Boulardii 500 mg 12/27/17 14:15 01/01/18 08:38 Florastor PO 500 mg BIDWM NEELAM Administration Sodium Chloride 10 ml 12/26/17 22:18 12/31/17 21:33 Normal Saline Flush 0.9% IVP 10 ml PRN PRN Administration NEEDED PER PROVIDER ORDERS Sodium Chloride 10 ml 12/27/17 01:00 01/01/18 08:40 Normal Saline Flush 0.9% IVP 10 ml 0100,[id number],1700 NEELAM Administration Sodium Chloride 2 sprays 12/31/17 13:12 01/01/18 08:44 [place] ALEK 2 spr Q4HR PRN Administration Nasal Congestion Vancomycin HCl 250 mg 12/31/17 11:18 01/01/18 12:23 Vancocin PO 250 mg QID NEELAM Administration - Lab Result Fish Bone Diagrams: 01/01/18 05:05 01/01/18 05:05 - EKG Results EKG Interpreted Independently: Yes EKG Comparison: Unchanged from prior EKG - Additional Planning My Orders: My Active Orders 12/31/17 16:29 LORazepam [Ativan] 1 mg PO Q6H PRN 12/31/17 17:00 Dextrose 5% [D5w] 242 ml NORepinephrine [Levophed] 8 mg IV 8 mcg/min guaiFENesin [Mucinex] 600 mg PO BID 12/31/17 19:00 CULTURE, BLOOD #1 [RM] Stat cefTRIAXone [Rocephin] 1 gm Sodium Chloride 0.9% Minibag [Normal Saline 0.9% Minibag] 100 ml IV Q24H 12/31/17 19:04 CULTURE, BLOOD #2 [RM] Stat 12/31/17 19:40 Initiate Line Care Protocol [RC] .protocol 12/31/17 19:52 Sodium Chloride 0.9% [Normal Saline 0.9%] 500 ml IV Q24H 12/31/17 19:53 Min Oil/Dimeth/Coconut Oil Crm [Cavilon] 1 applic TOP PRN PRN 01/01/18 06:55 CUL, RESPIRATORY [RM] Urgent 01/01/18 10:00 Electrolyte-A Solution [Plasma-Lyte A pH 7.4] 1,000 ml IV 100 mls/hr 01/01/18 10:35 Daily Weight [RC] 0600 01/01/18 11:00 Azithromycin Inj [Zithromax Inj] 500 mg Sodium Chloride 0.9% [Normal Saline 0.9%] 250 ml IV Q24H 01/01/18 21:00 Metoprolol Succinate [Toprol Xl] 12.5 mg PO BID 01/02/18 05:00 CBC - COMP BLD CT W/AUTO DIFF [HEME] DAILYLAB CMP [COMPREHENSIVE METABOLIC PANEL] [CHEM] DAILYLAB 01/03/18 05:00 CBC - COMP BLD CT W/AUTO DIFF [HEME] DAILYLAB CMP [COMPREHENSIVE METABOLIC PANEL] [CHEM] DAILYLAB 01/04/18 05:00 CBC - COMP BLD CT W/AUTO DIFF [HEME] DAILYLAB Subjective - Subjective Patient Reports: Feeling Better, Resting Comfortably Objective Vital Signs: Vital Signs - 24 hr 12/31/17 12/31/17 12/31/17 14:08 14:15 14:20 Temperature 37.3 C Heart Rate Heart Rate [ 118 H 120 H 104 H Brachial] Respiratory 20 Rate Blood Pressure Blood Pressure [Left Brachial artery] Blood Pressure 105/60 62/45 L 69/44 L [Right Brachial artery] O2 Saturation 92 12/31/17 12/31/17 12/31/17 14:25 14:27 14:30 Temperature Heart Rate Heart Rate [ 106 H 112 H 103 H Brachial] Respiratory 22 Rate Blood Pressure Blood Pressure 59/41 L 76/45 L [Left Brachial artery] Blood Pressure 65/45 L [Right Brachial artery] O2 Saturation 93 12/31/17 12/31/17 12/31/17 14:35 14:50 15:00 Temperature Heart Rate Heart Rate [ 104 H 103 H 103 H Brachial] Respiratory 24 20 24 Rate Blood Pressure Blood Pressure 72/43 L 79/47 L 81/47 L [Left Brachial artery] Blood Pressure [Right Brachial artery] O2 Saturation 93 92 91 L 12/31/17 12/31/17 12/31/17 15:15 15:31 16:45 Temperature 36.9 C Heart Rate Heart Rate [ 105 H 104 H 105 H Brachial] Respiratory 24 27 H 26 H Rate Blood Pressure Blood Pressure 72/56 L 86/55 L [Left Brachial artery] Blood Pressure 79/57 L [Right Brachial artery] O2 Saturation 92 93 93 12/31/17 12/31/17 12/31/17 16:50 17:00 18:00 Temperature Heart Rate Heart Rate [ 108 H 102 H 105 H Brachial] Respiratory 26 H 19 26 H Rate Blood Pressure Blood Pressure 133/93 H [Left Brachial artery] Blood Pressure 83/64 L 121/86 H [Right Brachial artery] O2 Saturation 97 95 94 12/31/17 12/31/17 12/31/17 18:33 18:39 19:31 Temperature 37.4 C Heart Rate 109 H Heart Rate [ 102 H 94 Brachial] Respiratory 16 22 Rate Blood Pressure 91/59 L Blood Pressure [Left Brachial artery] Blood Pressure 91/59 L 124/95 H [Right Brachial artery] O2 Saturation 92 92 12/31/17 12/31/17 12/31/17 20:00 20:03 21:00 Temperature Heart Rate 110 H Heart Rate [ 103 H 117 H Brachial] Respiratory 21 18 24 Rate Blood Pressure Blood Pressure [Left Brachial artery] Blood Pressure 110/90 H 138/88 H [Right Brachial artery] O2 Saturation 92 91 L 12/31/17 12/31/17 01/01/18 22:00 23:00 00:00 Temperature 36.8 C Heart Rate Heart Rate [ 103 H 101 H 96 Brachial] Respiratory 22 21 22 Rate Blood Pressure Blood Pressure [Left Brachial artery] Blood Pressure 109/95 H 104/76 118/81 H [Right Brachial artery] O2 Saturation 93 97 98 01/01/18 01/01/18 01/01/18 01:00 02:00 03:08 Temperature Heart Rate Heart Rate [ 92 89 88 Brachial] Respiratory 19 18 19 Rate Blood Pressure Blood Pressure [Left Brachial artery] Blood Pressure 111/74 110/81 H 94/54 L [Right Brachial artery] O2 Saturation 95 97 93 01/01/18 01/01/18 01/01/18 04:25 05:00 06:00 Temperature 36.7 C Heart Rate Heart Rate [ 91 88 91 Brachial] Respiratory 20 17 20 Rate Blood Pressure Blood Pressure [Left Brachial artery] Blood Pressure 82/58 L 117/77 109/71 [Right Brachial artery] O2 Saturation 94 97 94 01/01/18 01/01/18 01/01/18 07:48 08:00 09:00 Temperature 97.4 C H Heart Rate 105 H Heart Rate [ 110 H 135 H Brachial] Respiratory 19 19 23 Rate Blood Pressure Blood Pressure [Left Brachial artery] Blood Pressure 91/67 71/55 L [Right Brachial artery] O2 Saturation 90 L 92 01/01/18 01/01/18 01/01/18 10:00 11:00 12:00 Temperature 35.9 C L Heart Rate Heart Rate [ 115 H 105 H 103 H Brachial] Respiratory 20 21 18 Rate Blood Pressure Blood Pressure [Left Brachial artery] Blood Pressure 73/52 L 81/54 L 78/54 L [Right Brachial artery] O2 Saturation 91 L 93 97 01/01/18 13:26 Temperature Heart Rate 107 H Heart Rate [ Brachial] Respiratory 21 Rate Blood Pressure Blood Pressure [Left Brachial artery] Blood Pressure [Right Brachial artery] O2 Saturation Oxygen O2 Source Nasal cannula I&O (Last 24 Hrs): Intake and Output Totals x24h 12/30/17 12/31/17 01/01/18 23:59 23:59 23:59 Intake Total 2150 3605.125 2548.459 Output Total 300 1575 100 Balance 1850 2030.125 2448.459 - Results Results: Laboratory Results WBC 6.9 x10^3/uL (4.8-10.8) 01/01/18 05:05 RBC 4.02 10^6/uL (4.20-5.40) L 01/01/18 05:05 Hgb 11.8 g/dL (12.0-16.0) L 01/01/18 05:05 Hct 34.9 % (37.0-47.0) L 01/01/18 05:05 MCV 86.9 fL (81.0-99.0) 01/01/18 05:05 MCH 29.3 pg (27.0-31.0) 01/01/18 05:05 MCHC 33.8 g/dL (32.0-36.0) 01/01/18 05:05 RDW 14.6 % (12.0-15.0) 01/01/18 05:05 Plt Count 169 10^3/uL (130-450) 01/01/18 05:05 MPV 9.5 fL (7.9-10.8) 01/01/18 05:05 Neut # (Auto) 4.9 10^3/uL (1.5-6.6) 01/01/18 05:05 Lymph # (Auto) 1.3 10^3/uL (1.5-3.5) L 01/01/18 05:05 [place] # (Auto) 0.5 10^3/uL (0.0-1.0) 01/01/18 05:05 Eos # (Auto) 0.1 10^3/uL (0.0-0.7) 01/01/18 05:05 Baso # (Auto) 0.1 10^3/uL (0.0-0.1) 01/01/18 05:05 Absolute Nucleated RBC 0.00 x10^3/uL 01/01/18 05:05 Band Neuts % (Manual) Not Reportable 12/27/17 05:35 Abnorm Lymph % (Manual) Not Reportable 12/27/17 05:35 Nucleated RBC % 0.1 /100WBC 01/01/18 05:05 Neutrophils # (Manual) Not Reportable 12/27/17 05:35 Lymphocytes # (Manual) Not Reportable 12/27/17 05:35 Monocytes # (Manual) Not Reportable 12/27/17 05:35 Eosinophils # (Manual) Not Reportable 12/27/17 05:35 Basophils # (Manual) Not Reportable 12/27/17 05:35 Differential Comment MANUAL=AUTO DIFF 12/27/17 05:35 Platelet Estimate NORMAL (130-450,000) (NORMAL) 12/27/17 05:35 Platelet Morphology NORMAL APPEARANCE (NORMAL) 12/27/17 05:35 RBC Morph Micro Appear NORMAL APPEARANCE (NORMAL) 12/27/17 05:35 PT 13.2 secs (9.9-12.6) H 12/27/17 02:16 INR 1.2 (0.8-1.2) 12/27/17 02:16 APTT 24.4 secs (24.9-33.3) L 12/27/17 02:16 Sodium 136 mmol/L (135-145) 01/01/18 05:05 Potassium 3.9 mmol/L (3.5-5.0) 01/01/18 05:05 Chloride 107 mmol/L (101-111) 01/01/18 05:05 Carbon Dioxide 25 mmol/L (21-32) 01/01/18 05:05 Anion Gap 4.0 (6-13) L 01/01/18 05:05 BUN 15 mg/dL (6-20) 01/01/18 05:05 Creatinine 0.6 mg/dL (0.4-1.0) 01/01/18 05:05 Estimated GFR (MDRD) 98 (>89) 01/01/18 05:05 Glucose 113 mg/dL (70-100) H 01/01/18 05:05 Lactic Acid 1.7 mmol/L (0.5-2.2) 01/01/18 11:03 Calcium 8.0 mg/dL (8.5-10.3) L 01/01/18 05:05 Magnesium 1.3 mg/dL (1.7-2.8) L 12/29/17 06:25 Total Bilirubin 0.4 mg/dL (0.2-1.0) 01/01/18 05:05 AST 50 IU/L (10-42) H 01/01/18 05:05 ALT 65 IU/L (10-60) H 01/01/18 05:05 Alkaline Phosphatase 93 IU/L (42-121) 01/01/18 05:05 Troponin I 0.44 ng/mL (<0.49) 01/01/18 11:03 B-Natriuretic Peptide 275 pg/mL (5-100) H 12/26/17 19:42 Total Protein 5.0 g/dL (6.7-8.2) L 01/01/18 05:05 Albumin 2.4 g/dL (3.2-5.5) L 01/01/18 05:05 Globulin 2.6 g/dL (2.1-4.2) 01/01/18 05:05 Albumin/Globulin Ratio 0.9 (1.0-2.2) L 01/01/18 05:05 Lipase 21 U/L (22-51) L 01/01/18 05:00 TSH < 0.08 uIU/mL (0.34-5.60) L 12/29/17 06:25 Free T4 1.65 ng/dL (0.58-1.64) H 01/01/18 05:05 Free T3 pg/mL 2.93 pg/mL (2.5-3.9) 01/01/18 05:05 ABX Reporting Has patient been on IV antibiotics over the past 48 hours?: Yes
[2018-01-01] MEDS: SODIUM CHLORIDE FLUSH 0.9% 10 ML SYRINGE IVP PRN (17:58)
[2018-01-01] MEDS: cefTRIAXone 1 GM in SODIUM CHLORIDE 0.9% MINIBAG 100 ML IV SCH (18:00)
[2018-01-02] MEDS: metroNIDAZOLE 250 MG TABLET PO SCH ×2 (00:29→08:39)
[2018-01-02] MEDS: SODIUM CHLORIDE FLUSH 0.9% 10 ML SYRINGE IVP SCH ×2 (00:30→08:41)
[2018-01-02] MEDS: MORPHINE 2 MG/ML SYRINGE IVP PRN ×5 (01:53→12:05)
[2018-01-02] MEDS: BENZONATATE 100 MG CAPSULE PO PRN (04:21)
[2018-01-02] MEDS: IBUPROFEN 400 MG TABLET PO PRN (04:21)
[2018-01-02] MEDS: IPRATROPIUM/ALBUTEROL 3 ML NEB INH PRN ×4 (04:25→12:34)
[2018-01-02] MEDS: SODIUM CHLORIDE FLUSH 0.9% 10 ML SYRINGE IVP PRN (04:57)
[2018-01-02] MEDS: LORazepam 0.5 MG TABLET PO PRN (05:13)
[2018-01-02 05:14] LABS: BASOPHILS % (AUTO) 0.5 %; EOSINOPHILS # (AUTO) 0.1 10^3/uL (0.0-0.7); HGB - HEMOGLOBIN 11.8 g/dL (12.0-16.0); LYMPHOCYTES # (AUTO) 1.4 10^3/uL (1.5-3.5); LYMPHOCYTES % (AUTO) 17.2 %; MEAN CORPUSCULAR HEMOGLOBIN 29.1 pg (27.0-31.0); MEAN CORPUSCULAR HGB CONC 33.1 g/dL (32.0-36.0); MEAN PLATELET VOLUME 8.7 fL (7.9-10.8); MONOCYTES # (AUTO) 0.4 10^3/uL (0.0-1.0); MONOCYTES % (AUTO) 5.3 %; NEUTROPHILS # (AUTO) 6.3 10^3/uL (1.5-6.6); PLT - PLATELET COUNT 199 10^3/uL (130-450); RED BLOOD COUNT 4.05 10^6/uL (4.20-5.40); WHITE BLOOD COUNT 8.3 x10^3/uL (4.8-10.8)
[2018-01-02] MEDS: BUDESONIDE 0.5 MG/2 ML NEB INH SCH (05:18)
[2018-01-02 05:26] LABS: ALBUMIN 2.5 g/dL (3.2-5.5); ALBUMIN/GLOBULIN RATIO 0.9 (1.0-2.2); BILIRUBIN,TOTAL 0.3 mg/dL (0.2-1.0); CALCIUM 8.1 mg/dL (8.5-10.3); CREATININE 0.7 mg/dL (0.4-1.0); TOTAL PROTEIN 5.3 g/dL (6.7-8.2)
[2018-01-02] MEDS: PHENAZOPYRIDINE 100 MG TABLET PO SCH (06:03)
[2018-01-02] MEDS: GABAPENTIN 100 MG CAPSULE PO SCH (06:03)
[2018-01-02] MEDS: ELECTROLYTE-A SOLUTION 1,000 ML IV SCH (07:00)
[2018-01-02] MEDS ORDERED: predniSONE 20 MG TABLET PO SCH (07:00)
[2018-01-02] MEDS: SODIUM CHLORIDE 0.9% 500 ML IV PRN ×2 (07:00→08:13)
[2018-01-02] MEDS: SACCHAROMYCES BOULARDII 250 MG CAPSULE PO SCH (08:37)
[2018-01-02] MEDS: METOPROLOL SUCCINATE 25 MG TABLET PO SCH (08:38)
[2018-01-02] MEDS: guaiFENesin 600 MG TABLET PO SCH (08:38)
[2018-01-02] MEDS: ASPIRIN EC 325 MG TABLET PO SCH (08:39)
[2018-01-02] MEDS: VANCOMYCIN 125 MG CAPSULE PO SCH (08:41)
[2018-01-02] MEDS: OXYMETAZOLINE NASAL SPRAY NAS SCH (08:41)
[2018-01-02] MEDS: FAMOTIDINE 20 MG TABLET PO SCH (08:41)
[2018-01-02] MEDS: ENOXAPARIN 80 MG/0.8 ML SYRINGE SUBQ SCH (08:44)
--- NOTE | 2018-01-02 08:44 | PROVIDER PROGRESS NOTE ---
Assessment/Plan - Problem List (1) COPD exacerbation Assessment/Plan: The patient gets acutely SOB and anxious. A neb treatment helps and she was started on oral Prednisone 20 mg this am. Will change to Solumedrol for a COPD exacerbation but just a short course (48 hours) since the steroids imapair healing post-TX and post-perforation of bowel. Continue nebs, Mucinex, Tessalon perles. (2) Hypotension Assessment/Plan: The Morphine prn has been dosed for right shoukder pain. This will be decreased and weaned to off, as it may be the cause for intermittent hypotension and need for Levophed. (3) HCAP (healthcare-associated pneumonia) Assessment/Plan: Sputum sample shows WBC, many bacteria but epithelial cells are seen. Culture results are pending. Continue with Ceftriaxone and Zithromax iv empirically for Healthcare associated pneumonia. (4) Acute non-ST elevation myocardial infarction (NSTEMI) Assessment/Plan: Will increase but spread out her Toprol XL. Continue ASA and Lovenox therapeutic dose. No further chest pain, therefore no Nitropaste will be started as her BP is still low. Continue the statin. Continue telemetry. (5) Clostridium difficile diarrhea Assessment/Plan: Continue po antibiotics and Lomotil. (6) Perforated diverticulum of large intestine Assessment/Plan: She was seen by the surgeon today who felt that her abdomen was improving and agreed that solids can be continued. Will stop the po Prednisone, and use a short course of iv steroids for her COPD , since steroids could slow tissue healing. - Current Meds Current Meds: Current Medications Generic Name Dose Route Start Last Admin Trade Name Freq PRN Reason Stop Dose Admin Albuterol/Ipratropium 3 ml 12/26/17 22:24 01/02/18 04:25 Duoneb INH 3 ml Q4HR PRN Administration Wheezing Albuterol/Ipratropium 3 ml 12/28/17 07:51 01/02/18 05:18 Duoneb INH 3 ml QID PRN Administration Shortness of Air/Wheezing Aspirin 325 mg 12/31/17 07:00 01/02/18 08:39 Ecotrin PO 325 mg DAILY NEELAM Administration Benzonatate 100 mg 12/27/17 08:18 01/02/18 04:21 Tessalon PO 100 mg TID PRN Administration Cough Budesonide 0.5 mg 12/29/17 07:00 01/02/18 05:18 Pulmicort INH 0.5 mg RTBID NEELAM Administration Calcium Carbonate/Glycine 500 mg 12/28/17 10:43 12/29/17 16:22 Tums PO 500 mg TID PRN Administration Heartburn Enoxaparin Sodium 70 mg 12/31/17 10:00 01/01/18 20:38 Lovenox SUBQ 70 mg BID NEELAM Administration Famotidine 20 mg 12/29/17 17:00 01/01/18 20:38 Pepcid PO 20 mg BID NEELAM Administration Gabapentin 200 mg 12/28/17 14:00 01/02/18 06:03 Neurontin PO 200 mg TID NEELAM Administration Guaifenesin 600 mg 12/31/17 17:00 01/02/18 08:38 Mucinex PO 600 mg BID NEELAM Administration Heparin Sodium (Beef Lung) 30 - 50 unit 01/02/18 05:02 01/02/18 06:03 IVP 50 unit PRN PRN Administration Central Line Protocol (<24 hr) Norepinephrine Bitartrate 8 mg 250 mls @ 15 mls/hr 12/31/17 17:00 01/02/18 04 :09 / Dextrose IV Not Given .[id number] NEELAM Protocol 8 MCG/MIN Ceftriaxone Sodium 1 gm/ 100 mls @ 200 mls/hr 12/31/17 19:00 01/01/18 18:30 Sodium Chloride IV Infused Q24H NEELAM Infusion Sodium Chloride 500 mls @ 0 mls/hr 12/31/17 19:52 01/02/18 08:13 Normal Saline 0.9% IV 30 mls/hr Q24H PRN Administration TKO RATE TKO Parenteral Electrolytes 1,000 mls @ 100 mls/hr 01/01/18 10:00 01/02/18 08:00 Plasma-Lyte A Ph 7.4 IV 01/02/18 15:00 100 mls/hr .Q10H NEELAM Infusion Protocol Azithromycin 500 mg/ Sodium 250 mls @ 250 mls/hr 01/01/18 11:00 01/01/18 12: 10 Chloride IV Infused Q24H NEEALM Infusion Ibuprofen 400 mg 01/01/18 06:24 01/02/18 04:21 Motrin PO 400 mg Q6HR PRN Administration PAIN Lorazepam 1 mg 12/31/17 16:29 01/02/18 05:13 Ativan PO 1 mg Q6H PRN Administration Anxiety Metronidazole 500 mg 12/29/17 17:00 01/02/18 08:39 Flagyl PO 500 mg Q8H NEELAM Administration Mineral Oil 1 applic 12/31/17 19:53 01/01/18 06:36 Cavilon TOP 1 applic PRN PRN Administration Skin Care Nitroglycerin 0.4 mg 12/31/17 14:13 12/31/17 18:39 Nitrostat SL 0.4 mg Q5MIN PRN Administration Chest Pain Ondansetron HCl 4 mg 12/26/17 22:18 12/30/17 02:39 Zofran Inj IVP 4 mg Q6HR PRN Administration Nausea / Vomiting Oxymetazoline HCl 2 sprays 12/31/17 14:00 01/01/18 20:38 Afrin ALEK 01/03/18 13:59 Not Given BID NEELAM Phenazopyridine HCl 100 mg 12/30/17 18:00 01/02/18 06:03 Pyridium PO 100 mg TID NEELAM Administration Saccharomyces Boulardii 500 mg 12/27/17 14:15 01/02/18 08:37 Florastor PO 500 mg BIDWM NEELAM Administration Sodium Chloride 10 ml 12/26/17 22:18 01/02/18 04:57 Normal Saline Flush 0.9% IVP 30 ml PRN PRN Administration NEEDED PER PROVIDER ORDERS Sodium Chloride 10 ml 12/27/17 01:00 01/02/18 00:30 Normal Saline Flush 0.9% IVP 20 ml [id number] NEELAM Administration Sodium Chloride 2 sprays 12/31/17 13:12 01/01/18 08:44 [place] ALEK 2 spr Q4HR PRN Administration Nasal Congestion Vancomycin HCl 250 mg 12/31/17 11:18 01/01/18 20:38 Vancocin PO 250 mg QID NEELAM Administration - Lab Result Fish Bone Diagrams: 01/02/18 04:58 01/02/18 04:58 - Additional Planning My Orders: My Active Orders 01/01/18 10:00 Electrolyte-A Solution [Plasma-Lyte A pH 7.4] 1,000 ml IV 100 mls/hr 01/01/18 10:35 Daily Weight [RC] 0600 01/01/18 11:00 Azithromycin Inj [Zithromax Inj] 500 mg Sodium Chloride 0.9% [Normal Saline 0.9%] 250 ml IV Q24H 01/02/18 05:00 MAGNESIUM [CHEM] Routine 01/02/18 05:02 Heparin Flush 30 - 50 unit IVP PRN PRN 01/02/18 08:32 Morphine Inj [Morphine] 1 mg IVP Q2H PRN 01/02/18 14:00 Metoprolol Succinate [Toprol Xl] 12.5 mg PO TID methylPREDNISolone SUCCINATE [SOLU-Medrol (40MG VIAL)] 40 mg IVP TID 01/02/18 15:00 NS 0.9% w/20 MEQ KCL @ 83.333 mls/hr Ns W/20 Meq KCl [Normal Saline 0.9% W/20 Meq KCl] 1,000 ml IV 83.333 mls/hr 01/03/18 05:00 CBC - COMP BLD CT W/AUTO DIFF [HEME] DAILYLAB CMP [COMPREHENSIVE METABOLIC PANEL] [CHEM] DAILYLAB MAGNESIUM [CHEM] DAILYLAB 01/04/18 05:00 CBC - COMP BLD CT W/AUTO DIFF [HEME] DAILYLAB MAGNESIUM [CHEM] DAILYLAB 01/05/18 05:00 MAGNESIUM [CHEM] DAILYLAB Objective Vital Signs: Vital Signs - 24 hr 01/01/18 01/01/18 01/01/18 09:00 10:00 11:00 Temperature Heart Rate Heart Rate [ 135 H 115 H 105 H Brachial] Respiratory 23 20 21 Rate Blood Pressure 71/55 L 73/52 L 81/54 L [Right Brachial artery] O2 Saturation 92 91 L 93 01/01/18 01/01/18 01/01/18 12:00 13:26 14:00 Temperature 35.9 C L Heart Rate 107 H Heart Rate [ 103 H 103 H Brachial] Respiratory 18 21 16 Rate Blood Pressure 78/54 L 93/58 L [Right Brachial artery] O2 Saturation 97 94 01/01/18 01/01/18 01/01/18 15:00 16:00 17:00 Temperature Heart Rate Heart Rate [ 100 98 97 Brachial] Respiratory 14 20 22 Rate Blood Pressure 94/79 145/100 H 90/69 [Right Brachial artery] O2 Saturation 97 97 96 07/21/18 07/21/18 07/21/18 17:50 18:00 19:00 Temperature Heart Rate 100 Heart Rate [ 101 H 106 H Brachial] Respiratory 23 18 15 Rate Blood Pressure 89/72 L 98/79 [Right Brachial artery] O2 Saturation 92 94 01/01/18 01/01/18 01/01/18 19:36 20:00 21:00 Temperature 36.3 C L Heart Rate Heart Rate [ 104 H 106 H 113 H Brachial] Respiratory 17 17 22 Rate Blood Pressure 104/67 125/94 H [Right Brachial artery] O2 Saturation 94 91 L 01/01/18 01/01/18 01/02/18 22:00 23:00 00:00 Temperature Heart Rate Heart Rate [ 101 H 102 H 90 Brachial] Respiratory 21 20 19 Rate Blood Pressure 92/75 92/69 102/68 [Right Brachial artery] O2 Saturation 93 92 94 01/02/18 01/02/18 01/02/18 00:41 01:00 02:00 Temperature 36.9 C Heart Rate Heart Rate [ 98 89 94 Brachial] Respiratory 21 29 H 18 Rate Blood Pressure 109/73 93/67 133/89 H [Right Brachial artery] O2 Saturation 91 L 01/02/18 01/02/18 01/02/18 03:00 04:00 04:26 Temperature Heart Rate 107 H Heart Rate [ 88 92 Brachial] Respiratory 17 16 24 Rate Blood Pressure 90/58 L 95/61 [Right Brachial artery] O2 Saturation 95 94 01/02/18 01/02/18 01/02/18 05:10 05:23 06:00 Temperature Heart Rate 100 Heart Rate [ 112 H 90 Brachial] Respiratory 26 H 20 17 Rate Blood Pressure 113/59 L 90/63 [Right Brachial artery] O2 Saturation 01/02/18 01/02/18 07:00 08:00 Temperature Heart Rate Heart Rate [ 98 94 Brachial] Respiratory 17 18 Rate Blood Pressure 116/74 97/71 [Right Brachial artery] O2 Saturation 98 92 Oxygen O2 Source Nasal cannula I&O (Last 24 Hrs): Intake and Output Totals x24h 12/31/17 01/01/18 01/02/18 23:59 23:59 23:59 Intake Total 3605.125 3805.667 1720.354 Output Total 1575 100 Balance 2030.125 3705.667 1720.354 - Results Results: Laboratory Results WBC 8.3 x10^3/uL (4.8-10.8) 01/02/18 04:58 RBC 4.05 10^6/uL (4.20-5.40) L 01/02/18 04:58 Hgb 11.8 g/dL (12.0-16.0) L 01/02/18 04:58 Hct 35.7 % (37.0-47.0) L 01/02/18 04:58 MCV 88.0 fL (81.0-99.0) 01/02/18 04:58 MCH 29.1 pg (27.0-31.0) 01/02/18 04:58 MCHC 33.1 g/dL (32.0-36.0) 01/02/18 04:58 RDW 15.0 % (12.0-15.0) 01/02/18 04:58 Plt Count 199 10^3/uL (130-450) 01/02/18 04:58 MPV 8.7 fL (7.9-10.8) 01/02/18 04:58 Neut # (Auto) 6.3 10^3/uL (1.5-6.6) 01/02/18 04:58 Lymph # (Auto) 1.4 10^3/uL (1.5-3.5) L 01/02/18 04:58 [place] # (Auto) 0.4 10^3/uL (0.0-1.0) 01/02/18 04:58 Eos # (Auto) 0.1 10^3/uL (0.0-0.7) 01/02/18 04:58 Baso # (Auto) 0.0 10^3/uL (0.0-0.1) 01/02/18 04:58 Absolute Nucleated RBC 0.01 x10^3/uL 01/02/18 04:58 Band Neuts % (Manual) Not Reportable 12/27/17 05:35 Abnorm Lymph % (Manual) Not Reportable 12/27/17 05:35 Nucleated RBC % 0.1 /100WBC 01/02/18 04:58 Neutrophils # (Manual) Not Reportable 12/27/17 05:35 Lymphocytes # (Manual) Not Reportable 12/27/17 05:35 Monocytes # (Manual) Not Reportable 12/27/17 05:35 Eosinophils # (Manual) Not Reportable 12/27/17 05:35 Basophils # (Manual) Not Reportable 12/27/17 05:35 Differential Comment MANUAL=AUTO DIFF 12/27/17 05:35 Platelet Estimate NORMAL (130-450,000) (NORMAL) 12/27/17 05:35 Platelet Morphology NORMAL APPEARANCE (NORMAL) 12/27/17 05:35 RBC Morph Micro Appear NORMAL APPEARANCE (NORMAL) 12/27/17 05:35 PT 13.2 secs (9.9-12.6) H 12/27/17 02:16 INR 1.2 (0.8-1.2) 12/27/17 02:16 APTT 24.4 secs (24.9-33.3) L 12/27/17 02:16 Sodium 136 mmol/L (135-145) 01/02/18 04:58 Potassium 4.1 mmol/L (3.5-5.0) 01/02/18 04:58 Chloride 103 mmol/L (101-111) 01/02/18 04:58 Carbon Dioxide 23 mmol/L (21-32) 01/02/18 04:58 Anion Gap 10.0 (6-13) 01/02/18 04:58 BUN 16 mg/dL (6-20) 01/02/18 04:58 Creatinine 0.7 mg/dL (0.4-1.0) 01/02/18 04:58 Estimated GFR (MDRD) 82 (>89) L 01/02/18 04:58 Glucose 161 mg/dL (70-100) H 01/02/18 04:58 Lactic Acid 1.7 mmol/L (0.5-2.2) 01/01/18 11:03 Calcium 8.1 mg/dL (8.5-10.3) L 01/02/18 04:58 Magnesium 1.3 mg/dL (1.7-2.8) L 12/29/17 06:25 Total Bilirubin 0.3 mg/dL (0.2-1.0) 01/02/18 04:58 AST 45 IU/L (10-42) H 01/02/18 04:58 ALT 61 IU/L (10-60) H 01/02/18 04:58 Alkaline Phosphatase 150 IU/L (42-121) H 01/02/18 04:58 Troponin I 0.44 ng/mL (<0.49) 01/01/18 11:03 B-Natriuretic Peptide 275 pg/mL (5-100) H 12/26/17 19:42 Total Protein 5.3 g/dL (6.7-8.2) L 01/02/18 04:58 Albumin 2.5 g/dL (3.2-5.5) L 01/02/18 04:58 Globulin 2.8 g/dL (2.1-4.2) 01/02/18 04:58 Albumin/Globulin Ratio 0.9 (1.0-2.2) L 01/02/18 04:58 Lipase 21 U/L (22-51) L 01/01/18 05:00 TSH < 0.08 uIU/mL (0.34-5.60) L 12/29/17 06:25 Free T4 1.65 ng/dL (0.58-1.64) H 01/01/18 05:05 Free T3 pg/mL 2.93 pg/mL (2.5-3.9) 01/01/18 05:05
[2018-01-02] MEDS: AZITHROMYCIN INJ 500 MG in SODIUM CHLORIDE 0.9% 250 ML IV SCH (12:00)
[2018-01-02] MEDS ORDERED: MORPHINE 2 MG/ML SYRINGE IVP PRN (12:23)
[2018-01-02 12:49] VITALS: BP 111/90
[2018-01-02] MEDS ORDERED: NALOXONE 0.4 MG/ML VIAL ONE (13:05)
[2018-01-02] MEDS ORDERED: METOPROLOL SUCCINATE 25 MG TABLET PO SCH (14:00)
[2018-01-02] MEDS ORDERED: methylPREDNISolone SUCCINATE 40 MG/ML VIAL IVP SCH (14:00)
[2018-01-02] MEDS ORDERED: NS W/20 MEQ KCL 1,000 ML IV SCH (15:00)
--- NOTE | 2018-01-03 07:10 | DISCHARGE SUMMARY ---
Physician: Capri Kaufman MD DATE OF ADMISSION: 12/26/2017 DATE OF DISCHARGE: 01/02/2018 SUMMARY HISTORY OF PRESENT ILLNESS: This is a 72-year-old white female with a history of COPD, smoker, hypertension, PVD, GERD. The patient lives in [place] part of the year. She recently returned from [place] driving on her own, using her [place]-ordered portable oxygen tank as she drove. She developed shortness of breath, felt that she was probably hypoxic, and had run out of oxygen in her tank. She described having wheezing, weakness, but no fever. She also complained of a waxing and waning colicky pain in the abdomen associated with diarrhea for 48 hours, and with this presented to the emergency room. Imaging done in the ER, found her to have a perforated colon from diverticulitis, and she was admitted to [facility] and had GI surgical consultation and followup throughout this hospital course. HOSPITAL COURSE AND DIAGNOSES 1. Perforated diverticulum of the large intestine. The patient was placed on bowel rest, peripheral IV fluids, and pain medications. She was also placed on antibiotics for the perforation. There were no signs of a surgical abdomen. The general surgeon followed along. The patient's diarrhea, however, continued and required further evaluation. Her diet was eventually advanced, and she was able to tolerate solid food. 2. Clostridium difficile diarrhea. The patient's watery stool was sent for evaluation, and C. difficile was positive. The patient was placed in isolation and then also had p.o. antibiotics initiated using p.o. Cipro, p.o. Flagyl, p.o. vancomycin. She had slow improvement in the amount of diarrhea throughout this hospital course. 3. Acute myocardial infarction. On day 5 of her course, the patient described chest pain. Blood tests were done that showed a positive elevation in troponin at 1.9. The patient was started on a therapeutic dose of Lovenox, aspirin, beta shereen. The patient had an Echo early in her course, which was repeated following the positive troponin. The Echocardiogram on both occasions showed mild LVH, preserved LV function with EF of 55-60%, moderate right ventricular enlargement with RVH, severe right atrial enlargement, mild left atrial enlargement. The RV systolic pressure was calculated at 119 mmHg, signifying severe pulmonary hypertension. After that first Echo, she was placed on Lasix and spironolactone, when she was felt to no longer be dehydrated from diarrhea. The repeat Echo was done for a re- evaluation of LV wall motion, and this did not show any new akinetic or hypokinetic zones. The PA pressure was not rechecked. On the 6th hospital day, she had another episode of chest pain which started while she was eating, and started to choke and cough She did receive a sublingual nitroglycerin x1. With this, she dropped her systolic blood pressure to 60 mmHg. IV fluid boluses were given but only improved her blood pressure to 80-90 mmHg systolic, and she was transferred to the ICU. Troponins were recycled, but did not show a new positive PR. The patient required morphine intermittently for right shoulder pain that she had during her stay in the ICU. Because of this, a CT scan of the chest was done to rule out PE, and this showed no evidence of pulmonary embolism; however, she did have severe tapering of her pulmonary arteries consistent with severe pulmonary hypertension. There was also food or a mass in a bronchiole. On 01/02/2018, the patient was witnessed to be sleeping comfortably. She became suddenly apneic and was not arousable to sternal rub. She went into PEA. The patient had signed a Do Not Resuscitate POLST form several days previously and therefore, she was not resuscitated. She was pronounced , when no heart sounds were audible, at 12:55 p.m. on 2017. No autopsy was requested by the daughter, who is the closest next of kin. 4. Healthcare-acquired pneumonia. The chest x-ray and CT findings on the day of hypotension, day 5 of hospitalization, showed new bilateral pneumonia. There was also ground glass appearance and COPD findings on imaging. The patient had been on nebulizers, there was intermittent wheezing, but no significant complaints of shortness of breath with these treatments. The patient was started on prednisone p.o. and switched to Solu- Medrol IV for her pulmonary symptoms. A rapid taper had been planned in order to prevent abnormal or worsening healing of the PR and perforated diverticulum. When the patient became apneic, she did receive Narcan IV, which did not result in improving her status. 5. Pulmonary hypertension. The patient had been a smoker, was possibly trying to quit. Appearance of ground glass on CXR suggested interstitial lung disease, and COPD was noted on imaging as well, both potentially causing pulmonary HT. The Echo confirmed that she had cor pulmonale and severe pulmonary hypertension. She was on several days of Lasix and Spironolactone after the initial dehydration had resolved. Both of these diuretics were discontinued when she was hypotensive and being transferred to the ICU. The patient had oxygen ordered, but only when she lived in [place]. The status of her lungs and severity of COPD and interstitial lung disease was therefore not known in detail, as that workup was probably performed in [place]. Time required to complete this entire dictation, chart review, completion of forms: 60 minutes. cc: Rhina Vanessa TD: 01/02/2018 18:37 [email or web address]
== END 2018-01-02 12:55 | disposition expired | DRG 871 ==
LOC: ED 19:01 → MS3 22:18 → ICU 12-31 15:46
PROVIDERS: ADMIT Specialist; ATTEND Internal Medicine
DX: A41.9 Sepsis, unspecified organism (principal); I21.4 Non-ST elevation (NSTEMI) myocardial infarction; J15.9 Unspecified bacterial pneumonia; I50.9 Heart failure, unspecified; F17.200 Nicotine dependence, unspecified, uncomplicated; K57.20 Diverticulitis of large intestine with perforation and abscess without bleeding; J47.0 Bronchiectasis with acute lower respiratory infection; T17.520A Food in bronchus causing asphyxiation, initial encounter; A04.72 Enterocolitis due to Clostridium difficile, not specified as recurrent; J84.9 Interstitial pulmonary disease, unspecified; E87.1 Hypo-osmolality and hyponatremia; I50.32 Chronic diastolic (congestive) heart failure; J47.1 Bronchiectasis with (acute) exacerbation; R57.1 Hypovolemic shock; I27.81 Cor pulmonale (chronic); I27.23 Pulmonary hypertension due to lung diseases and hypoxia; I11.0 Hypertensive heart disease with heart failure; M25.511 Pain in right shoulder; Y95 Nosocomial condition; F17.210 Nicotine dependence, cigarettes, uncomplicated; K21.9 Gastro-esophageal reflux disease without esophagitis; H91.93 Unspecified hearing loss, bilateral; M19.042 Primary osteoarthritis, left hand; M19.041 Primary osteoarthritis, right hand; M47.9 Spondylosis, unspecified; G89.29 Other chronic pain; G62.9 Polyneuropathy, unspecified; R30.0 Dysuria; E05.90 Thyrotoxicosis, unspecified without thyrotoxic crisis or storm; Z66 Do not resuscitate; Z99.81 Dependence on supplemental oxygen; Z79.899 Other long term (current) drug therapy; Z79.1 Long term (current) use of non-steroidal anti-inflammatories (NSAID); Z91.14 Patient's other noncompliance with medication regimen
CPT/HCPCS: 36415; 71045; 71046; 71275; 74176; 74177; 80048; 80053; 83605; 83690; 83735; 83880; 84439; 84443; 84481; 84484; 85025; 85610; 85730; 87040; 87045; 87046; 87070; 87205; 87493; 93005; 93306; 94640; 94761; 96361; 96365; 96375; 99284